=== PATIENT | male | born 1950 | race Caucasian/White ===

== ENCOUNTER → 2016-08-08 | Outpatient (REF) | payer MEDICARE ==
[2016-08-08 12:14] LABS: ALBUMIN 3.5 GM/DL (3.2-5.2); ALBUMIN/GLOBULIN RATIO 0.92 (1.00-1.93); ALKALINE PHOSPHATASE 110 U/L (45-117); ALT/SGPT 48 U/L (12-78); ANION GAP 9 MEQ/L (8-16); AST/SGOT 57 U/L (15-37); BILIRUBIN,TOTAL 0.4 MG/DL (0.2-1.0); BLOOD UREA NITROGEN 9 MG/DL (7-18); CALCIUM LEVEL 8.7 MG/DL (8.8-10.2); CARBON DIOXIDE LEVEL 25 MEQ/L (21-32); CHLORIDE LEVEL 103 MEQ/L (98-107); CHOLESTEROL LEVEL 135 MG/DL (<200); CREATININE FOR GFR 0.82 MG/DL (0.70-1.30); GLOMERULAR FILTRATION RATE > 60.0 (>49); GLUCOSE, FASTING 233 MG/DL (80-110); POTASSIUM SERUM 4.8 MEQ/L (3.5-5.1); SODIUM LEVEL 137 MEQ/L (136-145); TOTAL PROTEIN 7.3 GM/DL (6.4-8.2); TRIGLYCERIDES LEVEL 272 MG/DL (<150); URIC ACID 3.3 MG/DL (3.5-7.2)
== END ==
LOC: M SFHCCLAY 08:53
PROVIDERS: ATTEND Family Medicine
DX: E11.9 Type 2 diabetes mellitus without complications (principal); I10 Essential (primary) hypertension; K75.81 Nonalcoholic steatohepatitis (NASH); N20.0 Calculus of kidney

== ENCOUNTER → 2016-11-15 | Outpatient (REF) | payer MEDICARE ==
[~2016-11-15] MED LIST: ALLO100T; AMLO1TAB22 PO; GLIM1TAB; JANU50TA8; Janumet; METO1TAB32; NAPR500T PO; NORCOTAB PO; VYTO10TA18
== END ==
LOC: M SFHCCLAY 08:44
PROVIDERS: ATTEND Family Medicine
DX: E11.21 Type 2 diabetes mellitus with diabetic nephropathy (principal)

== ENCOUNTER 2016-11-20 22:43 | Emergency (ER) | payer MEDICARE ==
[~2016-11-20] VITALS: Ht 170.2 cm; Wt 115.9 kg
[2016-11-20] MEDS ORDERED: GLIM1TAB (22:57)
[2016-11-20] MEDS ORDERED: JANU50TA8 (22:57)
[2016-11-20] MEDS ORDERED: Janumet (22:57)
[2016-11-20] MEDS ORDERED: ALLO100T (22:57)
[2016-11-20] MEDS ORDERED: VYTO10TA18 (22:57)
[2016-11-20] MEDS ORDERED: AMLO1TAB22 PO (22:57)
[2016-11-20] MEDS ORDERED: METO1TAB32 (22:57)
[2016-11-21] MEDS ORDERED: NORCOTAB PO (01:50)
[2016-11-21] MEDS: NORCO 5/325MG TABLET (BULK FOR ED) PO ONE (01:50)
[2016-11-21] MEDS ORDERED: NAPR500T PO (01:50)
[2016-11-21 01:55] VITALS: BP 160/77
--- NOTE | 2016-11-21 07:44 | REP ---
Clinical: Trauma. Technique: Frontal view of the chest with multiple views of the left hemithorax. Findings: Frontal view of the chest demonstrates no acute cardiopulmonary process. Multiple views of the left hemithorax demonstrates no obvious acute rib fracture or pathology. Impression: Normal left rib series Signed by Jose Alfredo Alston MD 11/21/2016 07:36 A
== END 2016-11-21 01:59 | disposition home or self-care (01) ==
LOC: M ED 22:43
DX: R07.89 Other chest pain (principal); R06.02 Shortness of breath

== ENCOUNTER → 2016-12-18 | Outpatient (REF) | payer MEDICARE ==
[2016-12-18 12:39] LABS: ALBUMIN 2.5 GM/DL (3.2-5.2); ALBUMIN/GLOBULIN RATIO 0.56 (1.00-1.93); ALKALINE PHOSPHATASE 108 U/L (45-117); ALT/SGPT 18 U/L (12-78); ANION GAP 11 MEQ/L (8-16); AST/SGOT 31 U/L (15-37); BILIRUBIN,TOTAL 0.6 MG/DL (0.2-1.0); BLOOD UREA NITROGEN 5 MG/DL (7-18); CALCIUM LEVEL 8.6 MG/DL (8.8-10.2); CARBON DIOXIDE LEVEL 25 MEQ/L (21-32); CHLORIDE LEVEL 106 MEQ/L (98-107); GLOMERULAR FILTRATION RATE > 60.0 (>49); GLUCOSE, FASTING 103 MG/DL (80-110); POTASSIUM SERUM 3.7 MEQ/L (3.5-5.1); SODIUM LEVEL 142 MEQ/L (136-145)
[2016-12-18 13:25] LABS: BASO % 0.3 % (0.0-1.0); EOS # 0.2 K/mm3 (0.0-0.50); LARGE UNSTAINED CELL # 0.1 K/mm3 (0.0-0.4); LARGE UNSTAINED CELL % 0.9 % (0.0-4.0); LYMPH # 1.5 K/mm3 (1.5-4.5); LYMPH % 13.6 % (24.0-44.0); MEAN CORPUSCULAR HEMOGLOBIN 31.4 pg (27.0-33.0); MEAN CORPUSCULAR HGB CONC 32.3 g/dl (32.0-36.5); MEAN CORPUSCULAR VOLUME 97.2 fl (80.0-96.0); MONO # 0.8 K/mm3 (0.0-0.8); MONO % 7.4 % (0.0-5.0); NEUTROPHILS % 75.8 % (36.0-66.0); PLATELET COUNT, AUTOMATED 498 k/mm3 (150-450); RED CELL DISTRIBUTION WIDTH 13.1 % (11.5-14.5); WHITE BLOOD COUNT 10.5 K/mm3 (4.0-10.0)
== END ==
LOC: M SFHCCLAY 08:10
PROVIDERS: ATTEND Family Medicine
DX: I48.91 Unspecified atrial fibrillation (principal); E78.5 Hyperlipidemia, unspecified; I10 Essential (primary) hypertension

== ENCOUNTER → 2017-02-18 | Outpatient (REF) | payer MEDICARE ==
[2017-02-18 12:42] LABS: ALBUMIN 3.7 GM/DL (3.2-5.2); ANION GAP 9 MEQ/L (8-16); BLOOD UREA NITROGEN 12 MG/DL (7-18); CALCIUM LEVEL 9.4 MG/DL (8.8-10.2); CARBON DIOXIDE LEVEL 26 MEQ/L (21-32); CHLORIDE LEVEL 107 MEQ/L (98-107); CREATININE FOR GFR 0.65 MG/DL (0.70-1.30); GLOMERULAR FILTRATION RATE > 60.0 (>49); GLUCOSE, FASTING 87 MG/DL (80-110); PHOSPHORUS LEVEL 4.9 MG/DL (2.5-4.9); SODIUM LEVEL 142 MEQ/L (136-145)
== END ==
LOC: M SFHCCLAY 07:37
PROVIDERS: ATTEND Family Medicine
DX: R93.8 Abnormal findings on diagnostic imaging of other specified body structures (principal); K86.9 Disease of pancreas, unspecified; Z79.899 Other long term (current) drug therapy

== ENCOUNTER → 2017-02-19 | Outpatient (CLI) | payer MEDICARE ==
[~2017-02-19] MED LIST changes: +GASTROGRAFIN SOLUTION 30ML (Q9963) As Ordered ONE; +ISOVUE-370 76% 100ML VIAL (Q9967) As Ordered ONE
--- NOTE | 2017-02-19 16:19 | REP ---
CT of the abdomen, pelvis not included, multiphase scanning without and with IV contrast: There are no comparison studies. Bowel contrast used on all phases of the study. Scanning is initially performed without IV contrast. This is followed by multiphase scanning after IV contrast. The visualized lung mejía are unremarkable. No pleural effusions. The hepatic parenchyma is homogeneous on all phases of the study. There are tiny gallbladder calculi along the dependent wall of the gallbladder. The gallbladder is otherwise unremarkable. There is no mass in the head, body or tail of the pancreas. There is no evidence of pancreatitis or pseudocyst. There is no pancreatic duct dilatation. The spleen is normal size and unremarkable. The adrenals are unremarkable. There are renal cortical cysts bilaterally, the largest is at the mid pole of the left kidney measuring 3.6 cm. The abdominal aorta is unremarkable. There is diverticulosis of the visualized portion of the sigmoid colon without evidence of diverticulitis. The colon is not visualized in entirety. There is a large abdominal pannus hanging inferiorly over the the anterior abdominal wall. Impression: No pancreatic mass is identified. There is diverticulosis without diverticulitis in the visualized portion of the sigmoid colon. There is anterior abdominal wall pannus with dependent edema along the inferior margin of this pannus. There is a dependent edema in this pannus. There is cholelithiasis without cholecystitis. No ascites or adenopathy. Bilateral renal cysts. There is a nonobstructive calculus in the lower pole of the right kidney. Signed by Javier Olivo MD 02/19/2017 04:11 P
== END ==
LOC: M RAD 13:54
PROVIDERS: ATTEND Family Medicine
DX: R93.8 Abnormal findings on diagnostic imaging of other specified body structures (principal)
CPT/HCPCS: 74170; Q9963; Q9967

== ENCOUNTER → 2017-07-10 | Outpatient (REF) | payer MEDICARE | LOC: M SFHCCLAY 12:01 | DX: I10 Essential (primary) hypertension (principal); N20.1 Calculus of ureter; Z53.9 Procedure and treatment not carried out, unspecified reason ==

== ENCOUNTER → 2017-07-15 | Outpatient (CLI) | payer MEDICARE | LOC: M RAD 12:55 | DX: N20.1 Calculus of ureter (principal); N28.1 Cyst of kidney, acquired | CPT/HCPCS: 76775 ==

== ENCOUNTER → 2017-10-22 | Outpatient (REF) | payer MEDICARE ==
[2017-10-22 11:08] LABS: ANION GAP 9 MEQ/L (8-16); BLOOD UREA NITROGEN 8 MG/DL (7-18); CALCIUM LEVEL 8.6 MG/DL (8.8-10.2); CARBON DIOXIDE LEVEL 24 MEQ/L (21-32); CHLORIDE LEVEL 105 MEQ/L (98-107); CREATININE FOR GFR 0.75 MG/DL (0.70-1.30); GLOMERULAR FILTRATION RATE > 60.0 (>49); GLUCOSE, FASTING 200 MG/DL (70-100); POTASSIUM SERUM 4.4 MEQ/L (3.5-5.1); SODIUM LEVEL 138 MEQ/L (136-145)
== END ==
LOC: M LABDRAW1 10:32
DX: M65.312 Trigger thumb, left thumb (principal); Z01.812 Encounter for preprocedural laboratory examination
CPT/HCPCS: 80048

== ENCOUNTER → 2019-01-06 | Outpatient (REF) | payer MEDICARE ==
[~2019-01-06] MED LIST changes: -GASTROGRAFIN SOLUTION 30ML (Q9963) As Ordered ONE; +HYDR-3715 PO; -ISOVUE-370 76% 100ML VIAL (Q9967) As Ordered ONE; +NAPR-837 PO; -NAPR500T PO; -NORCOTAB PO
[2019-01-06 17:13] LABS: BLOOD UREA NITROGEN 10 MG/DL (7-18); CALCIUM LEVEL 9.2 MG/DL (8.8-10.2); CARBON DIOXIDE LEVEL 24 MEQ/L (21-32); CHLORIDE LEVEL 110 MEQ/L (98-107); CREATININE FOR GFR 0.87 MG/DL (0.70-1.30); GLOMERULAR FILTRATION RATE > 60.0 (>49); GLUCOSE, FASTING 110 MG/DL (70-100); POTASSIUM SERUM 4.2 MEQ/L (3.5-5.1); SODIUM LEVEL 141 MEQ/L (136-145)
[2019-01-06 18:53] LABS: HEMOGLOBIN A1c 6.5 %
== END ==
LOC: M SFHCCLAY 11:50
PROVIDERS: ATTEND Family Medicine
DX: E11.9 Type 2 diabetes mellitus without complications (principal); I10 Essential (primary) hypertension

== ENCOUNTER → 2019-09-10 | Outpatient (REF) | payer MEDICARE ==
[~2019-09-10] MED LIST changes: -GLIM1TAB; +GLIM1TAB4
[2019-09-10 12:13] LABS: ALT/SGPT 44 U/L (12-78); BILIRUBIN,TOTAL 0.5 MG/DL (0.2-1.0); BLOOD UREA NITROGEN 15 MG/DL (7-18); CARBON DIOXIDE LEVEL 23 MEQ/L (21-32); CHLORIDE LEVEL 104 MEQ/L (98-107); CHOLESTEROL LEVEL 149 MG/DL (<200); CREATININE FOR GFR 0.94 MG/DL (0.70-1.30); GLOMERULAR FILTRATION RATE > 60.0 (>49); GLUCOSE, FASTING 183 MG/DL (70-100); HDL CHOLESTEROL 26 MG/DL (>40); NON-HDL-C 123 MG/DL; POTASSIUM SERUM 4.5 MEQ/L (3.5-5.1); SODIUM LEVEL 138 MEQ/L (136-145); TOTAL PROTEIN 7.9 GM/DL (6.4-8.2); TRIGLYCERIDES LEVEL 781 MG/DL (<150)
[2019-09-10 12:18] LABS: HEMOGLOBIN A1c 7.7 %
[2019-09-10 12:32] LABS: CREATININE, URINE 47.8 MG/DL; MAU/CREAT RATIO 307.5 MCG/MG (0.0-30.0)
== END ==
LOC: M SFHCCLAY 08:03
PROVIDERS: ATTEND Family Medicine
DX: K75.81 Nonalcoholic steatohepatitis (NASH) (principal); E11.21 Type 2 diabetes mellitus with diabetic nephropathy; Z98.890 Other specified postprocedural states; Z23 Encounter for immunization
CPT/HCPCS: 80053; 80061; 82043; 83036; 84443; 90732; G0009

== ENCOUNTER → 2019-09-14 | Outpatient (REF) | payer MEDICARE ==
[2019-09-14 12:02] LABS: CHOLESTEROL LEVEL 150 MG/DL (<200); CHOLESTEROL RISK RATIO 4.054 (<5); HDL CHOLESTEROL 37 MG/DL (>40); NON-HDL-C 113 MG/DL; TRIGLYCERIDES LEVEL 415 MG/DL (<150)
== END ==
LOC: M SFHCCLAY 08:46
PROVIDERS: ATTEND Family Medicine
DX: E78.2 Mixed hyperlipidemia (principal)

== ENCOUNTER → 2020-02-23 | Outpatient (REF) | payer MEDICARE ==
[2020-02-23 16:23] LABS: BASO % 0.6 % (0.0-1.0); EOS # 0.1 10^3/uL (0.0-0.5); EOS % 1.5 % (0.0-3.0); HEMOGLOBIN 14.3 g/dl (13.5-17.5); LYMPH # 1.3 10^3/uL (1.5-5.0); LYMPH % 19.4 % (24.0-44.0); MEAN CORPUSCULAR HGB CONC 32.5 g/dl (32.0-36.5); MEAN CORPUSCULAR VOLUME 98.4 fl (80.0-96.0); MONO # 0.8 10^3/uL (0.0-0.8); MONO % 12.5 % (0.0-5.0); NEUTROPHILS # 4.4 10^3/uL (1.5-8.5); NEUTROPHILS % 65.6 % (36.0-66.0); PLATELET COUNT, AUTOMATED 219 10^3/uL (150-450); RED BLOOD COUNT 4.47 10^6/uL (4.30-6.10); WHITE BLOOD COUNT 6.7 10^3/uL (4.0-10.0)
[2020-02-23 16:55] LABS: ALBUMIN 3.9 GM/DL (3.2-5.2); BILIRUBIN,DIRECT 0.2 MG/DL (0.0-0.2); BILIRUBIN,TOTAL 0.8 MG/DL (0.2-1.0); TOTAL PROTEIN 7.7 GM/DL (6.4-8.2)
[2020-02-23 17:51] LABS: HEMOGLOBIN A1c 6.6 %
== END ==
LOC: M LABDRAWC 16:02
PROVIDERS: ATTEND Orthopaedic Surgery
DX: Z01.818 Encounter for other preprocedural examination (principal); D64.9 Anemia, unspecified; M17.10 Unilateral primary osteoarthritis, unspecified knee; M25.561 Pain in right knee; I48.20 Chronic atrial fibrillation, unspecified; E11.9 Type 2 diabetes mellitus without complications; Z86.39 Personal history of other endocrine, nutritional and metabolic disease

== ENCOUNTER → 2020-02-23 | Outpatient (REF) | payer MEDICARE ==
[2020-02-23 16:13] LABS: HEMATOCRIT 45.3 % (42.0-52.0); HEMOGLOBIN 14.8 g/dl (13.5-17.5); MEAN CORPUSCULAR HEMOGLOBIN 32.3 pg (27.0-33.0); MEAN CORPUSCULAR HGB CONC 32.7 g/dl (32.0-36.5); MEAN CORPUSCULAR VOLUME 98.9 fl (80.0-96.0); PLATELET COUNT, AUTOMATED 223 10^3/uL (150-450); RED BLOOD COUNT 4.58 10^6/uL (4.30-6.10); WHITE BLOOD COUNT 6.5 10^3/uL (4.0-10.0)
[2020-02-23 16:24] LABS: INR 1.03; PROTHROMBIN TIME 13.7 SECONDS (12.5-14.3)
[2020-02-23 16:25] LABS: PARTIAL THROMBOPLASTIN TIME 33.9 SECONDS (24.2-38.5)
[2020-02-23 16:36] LABS: BLOOD UREA NITROGEN 12 MG/DL (7-18); CALCIUM LEVEL 8.9 MG/DL (8.8-10.2); CARBON DIOXIDE LEVEL 27 MEQ/L (21-32); CHLORIDE LEVEL 107 MEQ/L (98-107); CREATININE FOR GFR 0.78 MG/DL (0.70-1.30); GLOMERULAR FILTRATION RATE > 60.0 (>49); GLUCOSE, FASTING 121 MG/DL (70-100); POTASSIUM SERUM 4.3 MEQ/L (3.5-5.1); SODIUM LEVEL 140 MEQ/L (136-145)
== END ==
LOC: M SFHCCLAY 09:42
PROVIDERS: ATTEND Family Medicine
DX: I48.20 Chronic atrial fibrillation, unspecified (principal); E11.9 Type 2 diabetes mellitus without complications

== ENCOUNTER → 2020-12-06 | Outpatient (REF) | payer MEDICARE ==
[2020-12-06 11:51] LABS: HEMATOCRIT 45.2 % (42.0-52.0); HEMOGLOBIN 14.5 g/dl (13.5-17.5); MEAN CORPUSCULAR HEMOGLOBIN 32.4 pg (27.0-33.0); MEAN CORPUSCULAR HGB CONC 32.1 g/dl (32.0-36.5); MEAN CORPUSCULAR VOLUME 100.9 fl (80.0-96.0); PLATELET COUNT, AUTOMATED 196 10^3/uL (150-450); RED BLOOD COUNT 4.48 10^6/uL (4.30-6.10); WHITE BLOOD COUNT 7.7 10^3/uL (4.0-10.0)
[2020-12-06 12:18] LABS: ALBUMIN 3.8 GM/DL (3.2-5.2); ALT/SGPT 44 U/L (12-78); BILIRUBIN,TOTAL 0.4 MG/DL (0.2-1.0); BLOOD UREA NITROGEN 8 MG/DL (7-18); CALCIUM LEVEL 8.4 MG/DL (8.8-10.2); CARBON DIOXIDE LEVEL 26 MEQ/L (21-32); CHLORIDE LEVEL 107 MEQ/L (98-107); CHOLESTEROL LEVEL 149 MG/DL (<200); CHOLESTEROL RISK RATIO 5.137 (<5); CREATININE FOR GFR 0.72 MG/DL (0.70-1.30); GLOMERULAR FILTRATION RATE > 60.0 (>49); GLUCOSE, FASTING 166 MG/DL (70-100); HDL CHOLESTEROL 29 MG/DL (>40); NON-HDL-C 120 MG/DL; POTASSIUM SERUM 4.1 MEQ/L (3.5-5.1); SODIUM LEVEL 140 MEQ/L (136-145); TOTAL PROTEIN 7.2 GM/DL (6.4-8.2); TRIGLYCERIDES LEVEL 632 MG/DL (<150)
[2020-12-06 12:29] LABS: MAU/CREAT RATIO 589.7 MCG/MG (0.0-30.0)
[2020-12-06 12:48] LABS: HEMOGLOBIN A1c 6.7 %
== END ==
LOC: M SFHCCLAY 07:57
PROVIDERS: ATTEND Family Medicine
DX: G47.33 Obstructive sleep apnea (adult) (pediatric) (principal); E11.21 Type 2 diabetes mellitus with diabetic nephropathy; I48.0 Paroxysmal atrial fibrillation

== ENCOUNTER → 2021-03-16 | Outpatient (CLI) | payer MEDICARE ==
[~2021-03-16] MED LIST changes: +AMLO10CA22; +ELIQ5TAB; +EPIP0.3I2 IJ; +FISH1000 PO; +OCUVTAB PO; +SIMV20TA22; +STEG15TA; +allergy injections
== END ==
LOC: M LABSMTC 10:43
PROVIDERS: ATTEND Anesthesiology
DX: Z01.812 Encounter for preprocedural laboratory examination (principal); Z20.822 Contact with and (suspected) exposure to COVID-19

== ENCOUNTER 2021-03-21 06:49 | Day surgery (SDC) | payer MEDICARE ==
[~2021-03-21] VITALS: Ht 170.2 cm; Wt 112.0 kg
[~2021-03-21 06:49] MED LIST changes: +NS 1,000 ML IV ONE
--- OUTSIDE RECORDS SUMMARY | 2021-03-21 06:53 | CCD | Continuity of Care Document ---
Author Author Sj DOBSON M.D. Organization Unknown Address [address], [address], [place] [address] Phone [phone] Care Team Providers Care Valet Parker Name Role Phone Law Barillas MD AUTM Unavailable Problems Active Problems Provider Date Essential hypertension Hernan Dobson M.D. Onset: 12/19 Toxic effect of venom of wasps, accidental (unintentio nal), initial encounter Hernan Dobson M.D. Onset: 01/08/2020 Toxic effect of venom of hornets, accidental (unintent ional), initial encounter Hernan Dobson M.D. 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 Onset: 01/08/2020 Social History Type Date Description Comments Sex Unknown Tobacco Use Start: 05/20/64 End: 05/20/03 Patient is a forme r smoker 8 Cigarettes Per Day, Stopped for 25 year and restarted Smoking Status Reviewed: 01/09/21 Patient is a former smoker 8 Cigarettes Per Day, Stopped for 25 year and restarted Allergies and adverse reactions Description No Known Drug Allergies Medications Active Medications SIG Qnty Indications Ordering Provide r Date Janumet XR 50-1000mg Tablets ER 24 HR Take 2 Tablets By Mouth With Evening Meal Once A Day Unknown Steglatro 15mg Tablets Take One Tablet By Mouth Every Day Unknown Allopurinol 100mg Tablets Take one talbet once daily Unknown Amlodipine Besylate/Benazepril HCL 10-40mg Capsules Take 1 capsule once daily Unknown Eliquis 5mg Tablets Take 1 tablet twice daily Unknown Simvastatin 20mg Tablets Take 1 tablet every other day (Saturday, Saturday, Saturday) Unkn own Ezetimibe 10mg Tablets Take 1 tablet every other day Unknown Metoprolol Succinate ER 25mg Tablets ER 24HR Take 2 tablets in the morning and 1 tablet in the evening Unknown Glimepiride 2mg Tablets Take 2 tablets in the morning Unknown Epipen 2-Ravi 0.3mg/0 .3ML Solution Auto-Inject inject 0.3 milliliter (0.3 mg) by intram uscular route once as needed for anaphylaxis Unknown Frqkc-5-Xzml Ethyl Esters 1gm Caps ules take 2 capsules once daily Law Barillas MD Medications Administered in Office Medication SIG Qnty Indications Ordering Provider Date Allergy Injection 2 Or More Injection Hernan Dobson M.D. 02/27/2021 Allergy Injection 2 Or More Injection Hernan Dobson M.D. 02/20/2021 Allergy Injection 2 Or More Injection Hernan Dobson M.D. 02/13/2021 Allergy Injection 2 Or More Injection Hernan Dobson M.D. 02/06/2021 Immunizations Description No Information Available Vital Signs Date Vital Result Comment 02/06/2021 10:27am Weight 250.00 lb Height 65.75 inches 5'5.75" Heart Rate 60 /min BP Systolic 130 mmHg BP Diastolic 75 mmHg O2 % BldC Oximetry 96 % BMI (Body Mass Index) 40.7 kg/m2 01/09/2021 8:48am Weight 250.25 lb Height 65.75 inches 5'5.75" Heart Rate 76 /min Respiratory Rate 18 /min BP Systolic 135 mmHg BP Diastolic 76 mmHg BMI (Body Mass Index) 40.7 kg/m2 Results Description No Information Available Procedures Date Code Description Status 02/27/2021 36906 Allergy Antigens Mult Dose Vials , Five Insect Venoms Completed 02/27/2021 76698 Allergy Injection 2 Or More Comp leted 02/20/2021 40762 Allergy Antigens Mult Dose Vials , Five Insect Venoms Completed 02/20/2021 15185 Allergy Antigens Mult Dose Vials , Three Insect Venoms Completed 02/20/2021 75375 Allergy Injection 2 Or More Comp leted 02/13/2021 82512 Allergy Antigens Mult Dose Vials , Five Insect Venoms Completed 02/13/2021 29505 Allergy Injection 2 Or More Comp leted 02/06/2021 23271 Allergy Antigens Mult Dose Vials , Five Insect Venoms Completed 02/06/2021 17219 Allergy Injection 2 Or More Comp leted 01/09/2021 28150 Office/Outpatient Established Lo w MDM 20-29 Min Completed Medical Devices Description No Information Available Encounters Type Date Location Provider Dx Diagnosis Office Visit 01/09/2021 8:45a Main Office Hernan Dobson M.D. T63.441D Toxic effect of venom of bees, accidental, subs T63.451D Toxic effect of venom of hor nets, accidental, subs T63.461D Toxic effect of venom of was ps, accidental, subs Assessments Date Code Description Provider 02/27/2021 T63.441D Toxic effect of venom of bees, a ccidental, subs Hernan Dobson M.D. 02/27/2021 T63.451D Toxic effect of venom of hornets , accidental, subs Hernan Dobson M.D. 02/27/2021 T63.461D Toxic effect of venom of wasps, accidental, subs Hernan Dobson M.D. 02/27/2021 T63.441D Toxic effect of venom of bees, a mieshadental, subs Hernan Dobson M.D. 02/27/2021 T63.451D Toxic effect of venom of hornets , accidental, subs Hernan Dobson M.D. 02/27/2021 T63.461D Toxic effect of venom of wasps, accidental, subs Hernan Dobson M.D. Plan of Treatment Future Appointment(s):* 03/06/2021 9:20 am - Allergy Injection at Main Office * 01/09/2022 9:15 am - Hernan Dobson M.D. at Main Office Functional Status Description No Information Available Mental Status Description No Information Available Referrals Description No Information Available
--- OUTSIDE RECORDS SUMMARY | 2021-03-21 06:53 | CCD | Continuity of Care Document ---
Author Author Sj DOBSON M.D. Organization Unknown Address [address], [address], [place] [address] Phone [phone] Care Team Providers Care Special Delivery Mail Carrier Name Role Phone Law Barillas MD AUTM [...] route once as needed for anaphylaxis Unknown Vqgie-0-Olqk Ethyl Esters 1gm Caps ules take 2 capsules once daily Law Barillas MD Medications Administered in Office Medication SIG Qnty Indications Ordering Provider Date Allergy Injection 2 Or More Injection Hernan Dobson M.D. 03/14/2021 Allergy Injection 2 Or More Injection Hernan Dobson M.D. 03/06/2021 Allergy Injection 2 Or More Injection Hernan [...] Information Available Procedures Date Code Description Status 03/14/2021 27276 Allergy Antigens Mult Dose Vials , Five Insect Venoms Completed 03/14/2021 09540 Allergy Injection 2 Or More Comp leted 03/06/2021 66200 Allergy Antigens Mult Dose Vials , Five Insect Venoms Completed 03/06/2021 86056 Allergy Injection 2 Or More Comp leted 02/27/2021 71776 Allergy Antigens Mult Dose Vials , Five Insect Venoms Completed 02/27/2021 92114 Allergy Injection 2 Or More Comp leted 02/20/2021 11313 Allergy Antigens Mult Dose Vials , Five Insect Venoms Completed 02/20/2021 30672 Allergy Antigens Mult Dose Vials , Three Insect Venoms Completed 02/20/2021 28082 Allergy Injection 2 Or More Comp leted 02/13/2021 32288 Allergy Antigens Mult Dose Vials , Five Insect Venoms Completed 02/13/2021 32748 Allergy Injection 2 Or More Comp leted 02/06/2021 93338 Allergy Antigens Mult Dose Vials , Five Insect Venoms Completed 02/06/2021 77070 Allergy Injection 2 Or More Comp leted 01/09/2021 56483 Office/Outpatient Established Lo w MDM 20-29 Min [...] accidental, subs Assessments Date Code Description Provider 03/14/2021 T63.441D Toxic effect of venom of bees, a ccidental, subs Hernan Dobson M.D. 03/14/2021 T63.451D Toxic effect of venom of hornets , accidental, subs Hernan Dobson M.D. 03/14/2021 T63.461D Toxic effect of venom of wasps, accidental, subs Hernan Dobson M.D. 03/14/2021 T63.441D Toxic effect of venom of bees, a ccidental, subs Hernan Dobson M.D. 03/14/2021 T63.451D Toxic effect of venom of hornets , accidental, subs Hernan Dobson M.D. 03/14/2021 T63.461D Toxic effect of venom of wasps, accidental, subs Hernan Dobson M.D. Plan of Treatment Future Appointment(s):* 03/20/2021 9:40 am - Allergy Injection at Main Office * 01/09/2022 9:15 am - Hernan Dobson M.D. at Main Office Functional Status Description No Information Available Mental Status Description No Information Available Referrals Description No Information Available
--- OUTSIDE RECORDS SUMMARY | 2021-03-21 06:53 | CCD | Continuity of Care Document ---
Author Author Sj DOBSON M.D. Organization Unknown Address [address], [address], [place] [address] Phone [phone] Care Team Providers Care Sterile Tech Name Role Phone Law Barillas MD AUTM Unavailable Problems Active Problems Provider Date Essential hypertension Hernan Dobson M.D. Onset: 12/19 Toxic effect of venom of wasps, accidental (unintentio nal), initial encounter Hernan Dosbon M.D. Onset: 01/08/2020 Toxic effect of venom [...] route once as needed for anaphylaxis Unknown Othbr-0-Fhkz Ethyl Esters 1gm Caps ules take 2 capsules once daily Law Barillas MD Medications Administered in Office Medication SIG Qnty Indications Ordering Provider Date Allergy Injection 2 Or More Injection Hernan Dobson M.D. 03/20/2021 Allergy Injection 2 Or More Injection Hernan [...] Information Available Procedures Date Code Description Status 03/20/2021 66576 Allergy Antigens Mult Dose Vials , Five Insect Venoms Completed 03/20/2021 72931 Allergy Injection 2 Or More Comp leted 03/14/2021 08028 Allergy Antigens Mult Dose Vials , Five Insect Venoms Completed 03/14/2021 42547 Allergy Injection 2 Or More Comp leted 03/06/2021 61468 Allergy Antigens Mult Dose Vials , Five Insect Venoms Completed 03/06/2021 13447 Allergy Injection 2 Or More Comp leted 02/27/2021 04148 Allergy Antigens Mult Dose Vials , Five Insect Venoms Completed 02/27/2021 50937 Allergy Injection 2 Or More Comp leted 02/20/2021 36848 Allergy Antigens Mult Dose Vials , Five Insect Venoms Completed 02/20/2021 25299 Allergy Antigens Mult Dose Vials , Three Insect Venoms Completed 02/20/2021 07054 Allergy Injection 2 Or More Comp leted 02/13/2021 24967 Allergy Antigens Mult Dose Vials , Five Insect Venoms Completed 02/13/2021 23074 Allergy Injection 2 Or More Comp leted 02/06/2021 36735 Allergy Antigens Mult Dose Vials , Five Insect Venoms Completed 02/06/2021 11432 Allergy Injection 2 Or More Comp leted 01/09/2021 99951 Office/Outpatient Established Lo w MDM 20-29 Min [...] accidental, subs Assessments Date Code Description Provider 03/20/2021 T63.441D Toxic effect of venom of bees, a ccidental, subs Hernan Dobson M.D. 03/20/2021 T63.451D Toxic effect of venom of hornets , accidental, subs Hernan Dobson M.D. 03/20/2021 T63.461D Toxic effect of venom of wasps, accidental, subs Hernan Dobson M.D. 03/20/2021 T63.441D Toxic effect of venom of bees, a ccidental, subs Hernan Dobson M.D. 03/20/2021 T63.451D Toxic effect of venom of hornets , accidental, subs Hernan Dobson M.D. 03/20/2021 T63.461D Toxic effect of venom of wasps, accidental, subs Hernan Dobson M.D. Plan of Treatment Future Appointment(s):* 03/27/2021 9:30 am - Allergy Injection at Main Office * 01/09/2022 9:15 am - Hernan Dobson M.D. at Main Office Functional Status Description No Information Available Mental Status Description No Information Available Referrals Description No Information Available
--- OUTSIDE RECORDS SUMMARY | 2021-03-21 06:53 | CCD | Continuity of Care Document ---
Author Author Sj DOBSON M.D. Organization Unknown Address [address], [address], [place] [address] Phone [phone] Care Team Providers Care Balance Wheel Facer Name Role Phone Law Barillas MD AUTM [...] route once as needed for anaphylaxis Unknown Ymvai-1-Ysny Ethyl Esters 1gm Caps ules take 2 [...] Available Procedures Date Code Description Status 02/27/2021 65342 Allergy Antigens Mult Dose Vials , Five Insect Venoms Completed 02/27/2021 19987 Allergy Injection 2 Or More Comp leted 02/20/2021 91416 Allergy Antigens Mult Dose Vials , Five Insect Venoms Completed 02/20/2021 27847 Allergy Antigens Mult Dose Vials , Three Insect Venoms Completed 02/20/2021 75356 Allergy Injection 2 Or More Comp leted 02/13/2021 68430 Allergy Antigens Mult Dose Vials , Five Insect Venoms Completed 02/13/2021 19504 Allergy Injection 2 Or More Comp leted 02/06/2021 99576 Allergy Antigens Mult Dose Vials , Five Insect Venoms Completed 02/06/2021 18678 Allergy Injection 2 Or More Comp leted 01/09/2021 70278 Office/Outpatient Established Lo w MDM 20-29 Min [...]
--- OUTSIDE RECORDS SUMMARY | 2021-03-21 06:53 | CCD | Continuity of Care Document ---
Author Author Sj ALONSO M.D. Organization Unknown Address [address], [address] [place] [address] Phone [phone] Care Team Providers Care Modular Set Crew Member Name Role Phone Law Barillas M.D. AUTM [phone] AUTM Unavailable Problems Active Problems Provider Date Obstructive sleep apnea syndrome Lay Mello A.NYovani Onset: 10/22/2016 Essential hypertension Chapin Krishnamurthy MD Onset: 04/08/2019 Social History Type Date Description Comments Sex Unknown ETOH Use Denies alcohol use Tobacco Use Start: 05/20/76 End: 05/20/03 Patient is a forme r smoker he smoked 1/2 ppd and he quit for 25 years and then started smoking again. Smoking Status Reviewed: 02/02/21 Patient is a former smoker he smoked 1/2 ppd and he quit for 25 years and then started smoking again. Allergies, Adverse Reactions, Alerts Description No Known Drug Allergies Medications Active Medications SIG Qnty Indications Ordering Provide r Date Clenpiq 10-3.5-12mg-GM -GM/160ML S olution follow pre-procedure instructions. start day before procedure. (if not covered by insurance please fill gavilyte script). 320ml C18.7 Ralph Alonso M.D. 02/09/2021 Gavilyte-N With Flavor Pack 420gm Solution Rec drink the liquid as per the pre-procedur e instructions. ( fill this script only if clenpiq is not covered by insurance). 4000ml C18Lanette Alonso M.D. 02/09/[address] take 4 tablets together as per bowel preparation instructions. 4tabs C18.Santosh FlowersD. 02/09/2021 Amlodipine Besylate/Benazepril HCL 10-40mg Capsules 1tab qhs Unknown Allopurinol 100mg Tablets 1ta b qhs Unknown Metoprolol Succinate ER 25mg Tablets ER 24HR 2tabs qam/1tab qhs Unknown 0 Janumet XR 50-1000mg Tablets ER 24 HR 2tabs qhs Unknown CPAP 13CM [facility] Unknown Eliquis 5mg Tablets 1tab bid Unknown Steglatro 15mg Tablets 1tab q am Unknown Glimepiride 4mg Tablets 2tabs qam Unknown Ezetimibe 10mg Tablets 1tab 3 x/wk Unknown Simvastatin 20mg Tablets 1tab 3x/wk Unknown Ocuvite qd Unknown Jqcfp-0-Cchl Ethyl Esters 1gm Caps ules 2caps bid Unknown [place] 3 every day Unknown Immunizations Description No Information Available Vital Signs Date Vital Result Comment 02/09/2021 9:50am BP Systolic 128 mmHg BP Diastolic 76 mmHg Height 67 inches 5'7" Weight 245.00 lb BMI (Body Mass Index) 38.4 kg/m2 [place] Body Weight 148 lb Weight 111.132 kg BSA (Body Surface Area) 2.20 m2 02/02/2021 8:29am BP Systolic 130 mmHg BP Diastolic 70 mmHg Heart Rate 60 /min O2 % BldC Oximetry 96 % Height 67 inches 5'7" Weight 248.00 lb BMI (Body Mass Index) 38.8 kg/m2 [place] Body Weight 148 lb Weight 112.493 kg BSA (Body Surface Area) 2.22 m2 Results Description No Information Available Procedures Date Code Description Status 02/02/2021 17166 Office/Outpatient Established Lo w MDM 20-29 Min Completed Medical Devices Description No Information Available Encounters Type Date Location Provider Dx Diagnosis Office Visit 02/02/2021 8:30a [facility] Sheldon Vasquez MD G47.33 Obstructive sleep apnea (adult) (pediatr ic) Z79.02 [facility] [employer] (current) use of a ntithrombotics/antiplatelets Assessments Date Code Description Provider 02/09/2021 C18.7 Carcinoma of sigmoid colon Bronwyn Alonso M.D. 02/09/2021 Z12.11 Screening for malignant neoplasm of colon Ralph Alonso M.D. 02/09/2021 K63.5 Polyp of colon Ralph Song ala, M.D. 02/02/2021 G47.33 Obstructive sleep apnea (adult) (pediatric) Manohar Vasquez MD 02/02/2021 Z79.02 [facility] (current) use of antit hrombotics/antiplatelets Manohar Vasquez MD Plan of Treatment Future Appointment(s):* 02/12/2022 9:00 am - Manohar Vasquez MD at [facility] 02/02/2021 - Manohar Vasquez MD* G47.33 Obstructive sleep apnea (adult) (pediatric) * Z79.02 [employer] (current) use of antithrombotics/antiplatelets * * Comments:* ~ At this point, he is to continue his current regimen. No changes were made. He was applauded for his compliance. We updated his mask, filter and supply order. He keeps his device clean. Immunizations managed through primary.~ I have offered him a follow-up visit here, at least, yearly or, certainly, sooner if problems arise with which we can be of assistance. * Follow up:* 12 months....no testing Functional Status Description No Information Available Mental Status Description No Information Available Referrals Refer to Dr Reason for Referral Status Appt Date Ralph Alonso M.D. COLO SCREENING - HX OF [place] Scheduled 02/09/2021 [facility] [address], [address] [address] [phone]
--- OUTSIDE RECORDS SUMMARY | 2021-03-21 06:53 | CCD ---
Continuity of Care Document (CCD) Created on: 03/20/2021 Sj Soler External Reference #: [id number] : [id number] Sex: Male Author Author Sj DOBSON M.D. Organization Unknown Address [address] [place] [address] Phone [phone] Care Team Providers Care Manager Endoscopy Name Role Phone Law Barillas MD AUTM [...] route once as needed for anaphylaxis Unknown Gaucr-1-Klkp Ethyl Esters 1gm Caps ules take 2 [...] Available Procedures Date Code Description Status 03/20/2021 95757 Allergy Antigens Mult Dose Vials , Five Insect Venoms Completed 03/20/2021 14707 Allergy Injection 2 Or More Comp leted 03/14/2021 83419 Allergy Antigens Mult Dose Vials , Five Insect Venoms Completed 03/14/2021 12291 Allergy Injection 2 Or More Comp leted 03/06/2021 81603 Allergy Antigens Mult Dose Vials , Five Insect Venoms Completed 03/06/2021 04594 Allergy Injection 2 Or More Comp leted 02/27/2021 53901 Allergy Antigens Mult Dose Vials , Five Insect Venoms Completed 02/27/2021 95311 Allergy Injection 2 Or More Comp leted 02/20/2021 57761 Allergy Antigens Mult Dose Vials , Five Insect Venoms Completed 02/20/2021 85833 Allergy Antigens Mult Dose Vials , Three Insect Venoms Completed 02/20/2021 73031 Allergy Injection 2 Or More Comp leted 02/13/2021 39668 Allergy Antigens Mult Dose Vials , Five Insect Venoms Completed 02/13/2021 27954 Allergy Injection 2 Or More Comp leted 02/06/2021 22544 Allergy Antigens Mult Dose Vials , Five Insect Venoms Completed 02/06/2021 33280 Allergy Injection 2 Or More Comp leted 01/09/2021 16612 Office/Outpatient Established Lo w MDM 20-29 Min [...]
--- OUTSIDE RECORDS SUMMARY | 2021-03-21 06:53 | CCD | Continuity of Care Document ---
Author Author Sj DOBSON M.D. Organization Unknown Address [address], [address], [place] [address] Phone [phone] Care Team Providers Care Lens Inserter Name Role Phone Law Barillas MD AUTM [...] route once as needed for anaphylaxis Unknown Rkwfl-1-Wszn Ethyl Esters 1gm Caps ules take 2 [...] Information Available Procedures Date Code Description Status 03/06/2021 86695 Allergy Antigens Mult Dose Vials , Five Insect Venoms Completed 03/06/2021 23194 Allergy Injection 2 Or More Comp leted 02/27/2021 90402 Allergy Antigens Mult Dose Vials , Five Insect Venoms Completed 02/27/2021 46441 Allergy Injection 2 Or More Comp leted 02/20/2021 64795 Allergy Antigens Mult Dose Vials , Five Insect Venoms Completed 02/20/2021 61593 Allergy Antigens Mult Dose Vials , Three Insect Venoms Completed 02/20/2021 23219 Allergy Injection 2 Or More Comp leted 02/13/2021 66500 Allergy Antigens Mult Dose Vials , Five Insect Venoms Completed 02/13/2021 30327 Allergy Injection 2 Or More Comp leted 02/06/2021 00021 Allergy Antigens Mult Dose Vials , Five Insect Venoms Completed 02/06/2021 68491 Allergy Injection 2 Or More Comp leted 01/09/2021 39338 Office/Outpatient Established Lo w MDM 20-29 Min [...] accidental, subs Assessments Date Code Description Provider 03/06/2021 T63.441D Toxic effect of venom of bees, a mieshadental, subs Hernan Dobson M.D. 03/06/2021 T63.451D Toxic effect of venom of hornets , accidental, subs Hernan Dobson M.D. 03/06/2021 T63.461D Toxic effect of venom of wasps, accidental, subs Hernan Dobson M.D. 03/06/2021 T63.441D Toxic effect of venom of bees, a mieshadental, geri Dobson M.D. 03/06/2021 T63.451D Toxic effect of venom of hornets , accidental, geri Dobson M.D. 03/06/2021 T63.461D Toxic effect of venom of wasps, accidental, subs Hernan Dobson M.D. Plan of Treatment Future Appointment(s):* 01/09/2022 9:15 am - Hernan Dobson M.D. at Main Office Functional Status Description No Information Available Mental Status Description No Information Available Referrals Description No Information Available
--- OUTSIDE RECORDS SUMMARY | 2021-03-21 06:53 | CCD | Continuity of Care Document ---
Author Author Sj DOBSON M.D. Organization Unknown Address [address], [address], [place] [address] Phone [phone] Care Team Providers Care Pipe Fitter Marine Name Role Phone Law Barillas MD AUTM [...] route once as needed for anaphylaxis Unknown Eevhh-2-Allb Ethyl Esters 1gm Caps ules take 2 [...] Available Procedures Date Code Description Status 03/06/2021 78555 Allergy Antigens Mult Dose Vials , Five Insect Venoms Completed 03/06/2021 62830 Allergy Injection 2 Or More Comp leted 02/27/2021 43990 Allergy Antigens Mult Dose Vials , Five Insect Venoms Completed 02/27/2021 23938 Allergy Injection 2 Or More Comp leted 02/20/2021 92293 Allergy Antigens Mult Dose Vials , Five Insect Venoms Completed 02/20/2021 59689 Allergy Antigens Mult Dose Vials , Three Insect Venoms Completed 02/20/2021 39672 Allergy Injection 2 Or More Comp leted 02/13/2021 13180 Allergy Antigens Mult Dose Vials , Five Insect Venoms Completed 02/13/2021 41447 Allergy Injection 2 Or More Comp leted 02/06/2021 26300 Allergy Antigens Mult Dose Vials , Five Insect Venoms Completed 02/06/2021 66925 Allergy Injection 2 Or More Comp leted 01/09/2021 03418 Office/Outpatient Established Lo w MDM 20-29 Min [...]
--- OUTSIDE RECORDS SUMMARY | 2021-03-21 06:53 | CCD | Continuity of Care Document ---
Author Author Sj VASQUEZ MD Organization Unknown Address [address] [place] [address] Phone [phone] Care Team Providers Care Ordnance Officer Name Role Phone Law Barillas M.D. AUTM [phone] AUTM Unavailable Problems Active Problems Provider Date [...] SIG Qnty Indications Ordering Provide r Date Amlodipine Besylate/Benazepril HCL 10-40mg Capsules 1tab qhs [...] Tablets 1tab 3x/wk Unknown Ocuvite qd Unknown Aorhd-6-Llrm Ethyl Esters 1gm Caps ules 2caps bid Unknown [place] 3 every day Unknown Immunizations Description No Information Available Vital Signs Date Vital Result Comment 02/02/2021 8:29am BP Systolic 130 mmHg BP Diastolic 70 mmHg Heart Rate 60 /min O2 % BldC Oximetry 96 % Height 67 inches 5'7" Weight 248.00 lb BMI (Body Mass Index) 38.8 kg/m2 [place] Body Weight 148 lb Weight 112.493 kg BSA (Body Surface Area) 2.22 m2 02/01/2020 8:21am BP Systolic 124 mmHg BP Diastolic 80 mmHg Heart Rate 69 /min O2 % BldC Oximetry 99 % Room Air Height 67 inches 5'7" Weight 245.00 lb BMI (Body Mass Index) 38.4 kg/m2 [place] Body Weight 148 lb Weight 111.132 kg BSA (Body Surface Area) 2.20 m2 Results Description No Information Available Procedures Date Code Description Status 02/02/2021 85635 Office/Outpatient Established Lo w MDM 20-29 Min Completed Medical Devices Description No Information Available Encounters Type Date Location Provider Dx Diagnosis Office Visit 02/02/2021 8:30a [facility]Th[facility]acic Sheldon Vasquez MD G47.33 Obstructive sleep apnea (adult) (pediatr ic) Z79.02 long term care social worker (current) use of a ntithrombotics/antiplatelets Assessments Date Code Description Provider 02/02/2021 G47.33 Obstructive sleep apnea (adult) (pediatric) Manohar Vasquez MD 02/02/2021 Z79.02 long term care social worker (current) use of antit hrombotics/antiplatelets Manohar Vasquez MD Plan of Treatment Future Appointment(s):* 02/12/2022 9:00 am - Manohar Vasquez MD at [facility] Pulmonary[facility]Thoracic * 02/09/2021 9:20 am - Ralph Tenorio M.D. at [facility] 02/02/2021 - Manohar Vasquez MD* G47.33 Obstructive sleep apnea (adult) (pediatric) * Z79.02 senior living (current) use of antithrombotics/antiplatelets * * Comments:* [...] Description No Information Available Referrals Refer to Reason for Referral Status Appt Date Ralph Tenorio M.D. COLO SCREENING - HX OF [place] Scheduled 02/09/2021 [facility]- [address] [facility], [address] [place] [address] [phone]
--- OUTSIDE RECORDS SUMMARY | 2021-03-21 06:53 | CCD | Continuity of Care Document ---
Author Author Sj DOBSON M.D. Organization Unknown Address [address], [address], [place] [address] Phone [phone] Care Team Providers Care Info Analyst Name Role Phone Law Barillas MD AUTM [...] route once as needed for anaphylaxis Unknown Briul-4-Miaj Ethyl Esters 1gm Caps ules take 2 [...] Information Available Procedures Date Code Description Status 02/20/2021 71156 Allergy Antigens Mult Dose Vials , Three Insect Venoms Completed 02/20/2021 91097 Allergy Injection 2 Or More Comp leted 02/13/2021 71164 Allergy Antigens Mult Dose Vials , Five Insect Venoms Completed 02/13/2021 50975 Allergy Injection 2 Or More Comp leted 02/06/2021 02119 Allergy Antigens Mult Dose Vials , Five Insect Venoms Completed 02/06/2021 90654 Allergy Injection 2 Or More Comp leted 01/09/2021 57285 Office/Outpatient Established Lo w MDM 20-29 Min [...] accidental, subs Assessments Date Code Description Provider 02/20/2021 T63.441D Toxic effect of venom of bees, a ccidental, subs Hernan Dobson M.D. 02/20/2021 T63.451D Toxic effect of venom of hornets , accidental, subs Hernan Dobson M.D. 02/20/2021 T63.461D Toxic effect of venom of wasps, accidental, subs Hernan Dobson M.D. 02/20/2021 T63.441D Toxic effect of venom of bees, a ccidental, subs Hernan Dobson M.D. 02/20/2021 T63.451D Toxic effect of venom of hornets , accidental, subs Hernan Dobson M.D. 02/20/2021 T63.461D Toxic effect of venom of wasps, accidental, subs Hernan Dobson M.D. Plan of Treatment Future Appointment(s):* 01/09/2022 9:15 am - Hernan Dobson M.D. at Main Office Functional Status Description No Information Available Mental Status Description No Information Available Referrals Description No Information Available
--- OUTSIDE RECORDS SUMMARY | 2021-03-21 06:53 | CCD | Continuity of Care Document ---
Author Author Sj DOBSON M.D. Organization Unknown Address [address], [address], [place] [address] Phone [phone] Care Team Providers Care General Ledger Accountant Name Role Phone Law Barillas MD AUTM [...] route once as needed for anaphylaxis Unknown Gwdvu-7-Uzjg Ethyl Esters 1gm Caps ules take 2 [...] Available Procedures Date Code Description Status 03/14/2021 27399 Allergy Antigens Mult Dose Vials , Five Insect Venoms Completed 03/14/2021 30582 Allergy Injection 2 Or More Comp leted 03/06/2021 56705 Allergy Antigens Mult Dose Vials , Five Insect Venoms Completed 03/06/2021 51000 Allergy Injection 2 Or More Comp leted 02/27/2021 63084 Allergy Antigens Mult Dose Vials , Five Insect Venoms Completed 02/27/2021 81225 Allergy Injection 2 Or More Comp leted 02/20/2021 75883 Allergy Antigens Mult Dose Vials , Five Insect Venoms Completed 02/20/2021 10508 Allergy Antigens Mult Dose Vials , Three Insect Venoms Completed 02/20/2021 97447 Allergy Injection 2 Or More Comp leted 02/13/2021 11403 Allergy Antigens Mult Dose Vials , Five Insect Venoms Completed 02/13/2021 19437 Allergy Injection 2 Or More Comp leted 02/06/2021 81090 Allergy Antigens Mult Dose Vials , Five Insect Venoms Completed 02/06/2021 03869 Allergy Injection 2 Or More Comp leted 01/09/2021 85072 Office/Outpatient Established Lo w MDM 20-29 Min [...]
--- OUTSIDE RECORDS SUMMARY | 2021-03-21 06:53 | CCD | Continuity of Care Document ---
Author Author Sj DOBSON M.D. Organization Unknown Address [address], [address], [place] [address] Phone [phone] Care Team Providers Care Power Hammer Operator Name Role Phone Law Barillas MD AUTM Unavailable Problems Active Problems Provider Date Essential hypertension Hernan Dobsno M.D. Onset: 12/19 Toxic effect of venom [...] Day, Stopped for 25 year and restarted Allergies, Adverse Reactions, Alerts Description No Known [...] route once as needed for anaphylaxis Unknown Xpprb-0-Lujm Ethyl Esters 1gm Caps ules take 2 [...] Information Available Procedures Date Code Description Status 02/13/2021 46120 Allergy Injection 2 Or More Comp leted 02/06/2021 28838 Allergy Antigens Mult Dose Vials , Five Insect Venoms Completed 02/06/2021 30024 Allergy Injection 2 Or More Comp leted 01/09/2021 26451 Office/Outpatient Established Lo w [facility] 20-29 Min Completed Medical Devices Description No Information Available Encounters Type Date Location Provider Dx Diagnosis Office Visit 01/09/2021 8:45a Main Office Hernan Dobson M.D. T63.441D Toxic effect of venom of bees, accidental, subs T63.451D Toxic effect of venom of hor nets, accidental, subs T63.461D Toxic effect of venom of was ps, accidental, subs Assessments Description No Information Available Plan of Treatment Future Appointment(s):* 01/09/2022 9:15 am - Hernan Dobson M.D. at Main Office Functional Status Description No Information Available Mental Status Description No Information Available Referrals Description No Information Available
--- OUTSIDE RECORDS SUMMARY | 2021-03-21 06:53 | CCD ---
Author Author [facility] Organization [facility] Address Unknown Phone Unavailable Care Team Providers Care Limnologist Name Role Phone Law Barillas Unavailable PROBLEMS Type Condition ICD9-CM Code CGP10-WU Code Onset Dates Condition S tatus W/U Status Risk SNOMED Code Notes Problem Hypertension I10 Active confirmed 2250715 3 Problem Personal history of other diseases of the circulatory syst em Z86.79 Active confirmed 052328675 Problem Diabetes mellitus E11.9 Active confirmed 73 877809 Problem Other specific arthropathies, not elsewhere clas sified, left shoulder M12.812 Active confirmed 165954174 Problem Uric acid kidney stone N20.0 Active confirmed 37282479 Problem Rotator cuff tear arthropathy of both shoulders M1 2.811 Active confirmed 697774711 Problem ROMEL (obstructive sleep apnea) G47.33 Active confirm ed 37667532 Problem 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 Activ e confirmed 54459425 Problem H/O cardiac radiofrequency ablation Z98.890 Acti ve confirmed 725247070 Problem Ureterolithiasis N20.1 Active confirmed 310 27127 Problem Paroxysmal a-fib I48.0 Active confirmed 282 814612 Problem 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 Active confirmed 067934473 Problem Mixed hyperlipidemia E78.2 Active confirmed 053536024 Problem Immunization not carried out because of patient refusal Z28.21 Active confirmed 290572449888 Problem Encounter for immunization Z23 Active confirmed 810776441 Problem Steatohepatitis K75.81 Active confirmed 4421 59225 Problem Paroxysmal atrial fibrillation I48.0 Active confir med 010941584 Problem Medicare annual wellness visit, subsequent Z00.00 Active confirmed 896303014 Problem Primary osteoarthritis of right knee M17.11 Act alison confirmed 613142068993858 Problem Cardiac pacemaker in situ Z95.0 Active confirmed 440655690 ALLERGIES Allergen (clinical drug ingredient) Drug/Non Drug Allergy do cumented on EMR Reaction Allergy Type Onset Date Status Bee Sting Anaphylaxis Drug Allergy 10/25/2020 Active ENCOUNTERS from 1950 to 2021-03-03 Encounter Location Date Provider Diagnosis [facility] Brennan CHAUDHARY [phone] [place] [address] 07 Feb, 2021 Law Barillas Hypertension I10 ; Diabetes mellitus wit h nephropathy E11.21 ; Mixed hyperlipidemia E78.2 ; Anaphylaxis, initial encounter T78.2XXA ; 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 ; Immunization not carried out because of patient refusal Z28.21 and H/O cardiac radiofrequency ablation Z98.890 IMMUNIZATIONS Vaccine Route Administration Date Status Influenza Pharmacy Given Unknown Mar 03, 2020 Adminis tered Zoster 50mcg/0.5mL Shingrix IM Intramuscular October 27, 2019 Adm inistered Influenza (High Dose 65 & up) Unknown Mar 20, 2018 Ad ministered Zoster 0.65mL Zostavax Unknown November 26, 2013 Administe red Pneumococcal Adult 0.5mL Pneumovax 23 IM Intramuscular September 10, 2019 Administered Pneumococcal Adult 0.5mL Pneumovax 23 Unknown Feb 18 13 Administered Influenza Pharmacy Given Unknown Feb 10, 2021 Adminis tered TDAP 0.5mL (Boostrix) Unknown Mar 15, 2014 Administer ed COVID-19 dose #1 given elsewhere Unspecified IM Intramuscular Ja n 2020 Administered Pneumococcal 0.5mL Prevnar 13 IM Intramuscular November 15, 2016 A dministered COVID-19 dose #2 given elsewhere Unspecified IM Intramuscular Fe b 2020 Administered Influenza 6mo & up Fluzone Unknown Mar 19, 2016 Admin istered SOCIAL HISTORY Tobacco Use: Social History Observation Description Date Details (start date - stop date) Former Smoker Sex Assigned At : Social History Observation Description Sex Assigned At Unknown Audit Question Answer Notes Total Score: 0 Interpretation: Alcohol Education Language: Question Answer Notes Languages spoken: Welsh Caodaism: Question Answer Notes Caodaism 33 None Domestic Violence: Question Answer Notes Status: Sexual Hx: Question Answer Notes Had sex in the last 12 months (vaginal, oral, or anal)? No Have you ever had an STD? No Drug and Alcohol Question Answer Notes Total Score: 0 Interpretation: No problems reported Alcohol Screening: Question Answer Notes Did you have a drink containing alcohol in the past year? No Points 0 Interpretation Negative BMI Care Goal Follow-Up Question Answer Notes Above Normal BMI Follow-Up Dietary management educatio n, guidance, and counseling Tobacco Use: Question Answer Notes Are you a: former smoker quit 2003 Additional Findings: Tobacco User no oth er use Additional Findings: Tobacco Non-User Current non-smok er, but past smoking history unknown How long has it been since you last smoked? > 10 years updated 02/23/2021 REASON FOR REFERRAL No Information VITAL SIGNS Weight 239 lbs Feb, Height 5'4 1/2" in Feb, BMI 40.39 kg/m2 Feb, Heart Rate 72 /min Feb, Respiratory Rate 18 /min Feb, Temperature 97.6 degrees Fahrenheit Feb, Oximetry 97RA Feb, Blood pressure systolic 120 mm Hg Feb, Blood pressure diastolic 73 mm Hg Feb, MEDICATIONS Medication SIG (Take, Route, Frequency, Duration) Notes Start Da te End Date Status Zyloprim 100 MG 1 tablet Orally Once a day May, Active Colace 100 MG 1 capsule as needed Orally Once a day Mar Active Zwpjb-7-rubq Ethyl Esters 1 GM 2 capsules Orally Twice a day Nov, Active Simvastatin 20 MG 1 tablet in the evening Orally 3 x weekly Active Ezetimibe 10 MG 1 tablet Orally 3 x weekly Active Allopurinol 100 MG 1 tablet Orally Once a day May, Active EpiPen 2-Ravi 0.3 MG/0.3ML as directed Injection Oct, Active amLODIPine Besy-Benazepril HCl 10-40 MG TAKE 1 CAPSULE BY MOUTH ONCE A DAY Orally ONCE A DAY Active Codefieduch UltraSoft Lancets - as directed E11.9 Daily 2016 Active Eliquis 5 MG TAKE ONE TABLET BY MOUTH TWICE A DAY Orally bid Active Ocuvite - 1 tab Orally once daily A ctive AstridTouch Ultra Test - CHECK BLOOD SUGAR DAILY WITH METER DIRECTED Active Janumet XR 50-1000 MG TAKE 2 TABLETS BY MOUTH WIT H EVENING MEAL ONCE A DAY Orally Daily Active AetherPal Ultra System w/Device as directed E11.9 Daily for gluco se testing Aug, Active One touch ultra blue as directed E11.9 Daily Aug, Active Steglatro 15 MG TAKE ONE TABLET BY MOUTH EVERY DAY for 90 Active Glimepiride 4 mg TAKE 2 TABLETS ONCE DAILY WI TH BREAKFAST OR THE FIRST MAIN MEAL OF THE DAY Active EpiPen 2-Ravi 0.3 MG/0.3ML as directed for anaphylaxis Injection once Nov, Active Metoprolol Succinate ER 25 MG 2 tabs in am, 1 in pm Orally bid Active amLODIPine Besylate 10 MG 1 tablet Orally instead of a mlodipine-benazepril before surgery Once a day Feb, Active PROCEDURES No Information RESULTS No Results REASON FOR VISIT 4 month follow up MEDICAL (GENERAL) HISTORY Type Description Date Medical History abnormal ECG (poor R wave progression) 1 Medical History Negative nuclear stress test 04/2014 Medical History Atrial Fibrillation Medical History Echo 02/2014, normal EF Medical History DM 2009 Medical History Steatohepatitis Medical History ROMEL Medical History Essential hypertension Medical History AT PATIENT REQUEST ALWAYS TR Y [facility] DRUG FIRST THEY GET FOR FREE Medical History Bowel obstruction w/infection Medical History Type 2 diabetes mellitus with other spec ified complication Medical History Atrial fibrillation Medical History broke left fibula 10/23/2019 Surgical History Hemicolectomy, colon CA 2003 Surgical History colonoscopy, 4 polyps removed. 2013 Surgical History Cardiac ablation for AFib 06/2012, 2014, 2018 Surgical History Pacemaker placement (Cardiol ogist Dr. Marquise Rivera) Ballast Regulator Operator Dr. Monroe, both at [facility] 2012 Surgical History pAROTOID TUMOR 2002 Surgical History Rt knee 1979 meniscus surgery Surgical History Rt knee 1979 additional knee surgery on meniscus, cartilage Surgical History Kidney stone bilateral, most recent 2013 Surgical History Ventral Hernia Surgical History Cardiac ablation october 20142014 Surgical History Small bowel resection and repair 11/29/16 Surgical History heart ablation 08/14/18 Surgical History Right knee replacement 04/10/2020 Hospitalization History Surgery Goals Section No Information Health Concerns No Information MEDICAL EQUIPMENT No Information MENTAL STATUS No Information FUNCTIONAL STATUS No Information ASSESSMENTS Encounter Date Diagnosis Assessment Notes Treatment Notes Treatm ent Clinical Notes Feb, Hypertension (ICD-10 - I10) Feb, Diabetes mellitus with nephropathy (ICD-10 - E11 .21) Feb, Mixed hyperlipidemia (ICD-10 - E78.2) Feb, Anaphylaxis, initial encounter (ICD-10 - T78.2XX A) Feb, Bee allergy status (ICD-10 - Z91.030) Feb, Immunization not carried out because of patient refusal (ICD-10 - Z28.21) Feb, H/O cardiac radiofrequency ablation (ICD-10 - Z9 8.890) PLAN OF TREATMENT Medication Medication Name Sig Start Date Stop Date Eliquis 5 MG TAKE ONE TABLET BY MOUTH TWICE A DAY Orally bid EpiPen 2-Ravi 0.3 MG/0.3ML as directed for anaphylaxis Inject ion once Nov, OneTouch UltraSoft Lancets - as directed E11.9 Daily Aug, amLODIPine Besy-Benazepril HCl 10-40 MG TAKE 1 CAPSULE BY MOUTH ONCE A DAY Orally ONCE A DAY OneTouch Ultra Test - CHECK BLOOD SUGAR DAILY WITH METER DIR ECTED Ezetimibe 10 MG 1 tablet Orally 3 x weekly Simvastatin 20 MG 1 tablet in the evening Orally 3 x weekly Zyloprim 100 MG 1 tablet Orally Once a day May, EpiPen 2-Ravi 0.3 MG/0.3ML as directed Injection Oct, Kwdyn-3-bgaf Ethyl Esters 1 GM 2 capsules Orally Twice a day Nov, Janumet XR 50-1000 MG TAKE 2 TABLETS BY MOUTH WIT H EVENING MEAL ONCE A DAY Orally Daily Allopurinol 100 MG 1 tablet Orally Once a day May, Glimepiride 4 mg TAKE 2 TABLETS ONCE DAILY WI TH BREAKFAST OR THE FIRST MAIN MEAL OF THE DAY One touch ultra blue as directed E11.9 Daily Aug, Metoprolol Succinate ER 25 MG 2 tabs in am, 1 in pm Orally bid Ocuvite - 1 tab Orally once daily OneTouch Ultra System w/Device as directed E11.9 Daily for g lucose testing Aug, Steglatro 15 MG TAKE ONE TABLET BY MOUTH EVERY DAY for 90 Colace 100 MG 1 capsule as needed Orally Once a day Mar, amLODIPine Besylate 10 MG 1 tablet Orally instead of a mlodipine-benazepril before surgery Once a day Feb, Future Test Test Name Order Date LIPID PANEL (CARDIAC RISK) 20210223 Comprehensive Metabolic Profile (CMP) 20210223 TSH 20210223 HEMOGLOBIN A1c 20210223 MICROALBUMIN RANDOM [id number] Next Appt Details 4 Months Reason: Provider Name:Law Barillas, 2021-06-28 09 :30:00 AM, Annie MORAES, , [place], [address], Insurance Providers Payer Name Payer Address Payer Phone Insured Name Patient Relati onship to Insured Coverage Start Date Coverage End Date MEDICARE BLUE PPO [address] [id number] NOEMI ELLIOTT self
--- OUTSIDE RECORDS SUMMARY | 2021-03-21 06:53 | CCD | Continuity of Care Document ---
Author Author Sj ALONSO M.D. Organization Unknown Address [address], [address] [place] [address] Phone [phone] Care Team Providers Care Shipboard Intelligence Analyst Name Role Phone Law Barillas M.D. AUTM [phone] AUTM Unavailable Problems Active Problems Provider Date Obstructive sleep apnea syndrome Lay Mello, NathanNYovani Onset: 10/22/2016 Essential hypertension Chapin Krishnamurthy MD [...] Tablets 1tab 3x/wk Unknown Ocuvite qd Unknown Wddmz-8-Txfl Ethyl Esters 1gm Caps ules 2caps bid Unknown [place] 3 every day Unknown Immunizations Description No Information Available Vital Signs Date Vital Result Comment 02/02/2021 8:29am BP Systolic 130 mmHg BP Diastolic 70 mmHg Heart Rate 60 /min O2 % BldC Oximetry 96 % Height 67 inches 5'7" Weight 248.00 lb BMI (Body Mass Index) 38.8 kg/m2 [place] Body Weight 148 lb Weight 112.493 kg BSA (Body Surface Area) 2.22 m2 02/01/2020 8:21am BP Systolic 124 mmHg BP Diastolic 80 mmHg Heart Rate 69 /min O2 % BldC Oximetry 99 % Room Air Height 67 inches 5'7" Weight 245.00 lb BMI (Body Mass Index) 38.4 kg/m2 [place] Body Weight 148 lb Weight 111.132 kg BSA (Body Surface Area) 2.20 m2 Results Description No Information Available Procedures Date Code Description Status 02/02/2021 83628 Office/Outpatient Established Lo w MDM 20-29 Min Completed Medical Devices Description No Information Available Encounters Type Date Location Provider Dx Diagnosis Office Visit 02/02/2021 8:30a [facility] Pulmonary/Thoracic Lawrenc elmer Vasquez MD G47.33 Obstructive sleep apnea (adult) (pediatr ic) Z79.02 lobsterman (current) use of a ntithrombotics/antiplatelets Assessments Date Code Description Provider 02/02/2021 G47.33 Obstructive sleep apnea (adult) (pediatric) Manohar Vasquez MD 02/02/2021 Z79.02 lobsterman (current) use of antit hrombotics/antiplatelets Manohar Vasquez MD Plan of Treatment Future Appointment(s):* 02/12/2022 9:00 am - Manohar Vasquez MD at [facility] Pulmonary/Thoracic Functional Status Description No Information Available Mental Status Description No Information Available Referrals Refer to Reason for Referral Status Appt Date Ralph Alonso M.D. COLO SCREENING - HX OF [place] Scheduled 02/09/2021 [facility], [address] [place], [place] [address] [phone]
--- OUTSIDE RECORDS SUMMARY | 2021-03-21 06:53 | CCD ---
Continuity of Care Document (CCD) Created on: 02/20/2021 Sj Soler External Reference #: [id number] : [id number] Sex: Male Author Author Sj DOBSON M.D. Organization Unknown Address [address], [place] [address] Phone [phone] Care Team Providers Care Glue Mill Operator Name Role Phone Law Barillas MD [...] route once as needed for anaphylaxis Unknown Qtjvq-7-Vgmw Ethyl Esters 1gm Caps ules take 2 [...] Available Procedures Date Code Description Status 02/20/2021 64923 Allergy Antigens Mult Dose Vials , Five Insect Venoms Completed 02/20/2021 08157 Allergy Antigens Mult Dose Vials , Three Insect Venoms Completed 02/20/2021 52995 Allergy Injection 2 Or More Comp leted 02/13/2021 79005 Allergy Antigens Mult Dose Vials , Five Insect Venoms Completed 02/13/2021 24351 Allergy Injection 2 Or More Comp leted 02/06/2021 73689 Allergy Antigens Mult Dose Vials , Five Insect Venoms Completed 02/06/2021 44082 Allergy Injection 2 Or More Comp leted 01/09/2021 55265 Office/Outpatient Established w [facility] 20-29 Min Completed Medical Devices Description No [...] bees, a mieshadental, subs Hernan Dobson M.D. 02/20/2021 T63.451D Toxic [...]
--- OUTSIDE RECORDS SUMMARY | 2021-03-21 06:54 | CCD | Continuity of Care Document ---
Author Author Sj VASQUEZ MD Organization Unknown Address [address] [place] [address] Phone [phone] Care Team Providers Care Fertilizer Processing Supervisor Name Role Phone Law Barillas M.D. AUTM [phone] AUTM Unavailable Problems Active Problems Provider Date [...] Tablets 1tab 3x/wk Unknown Ocuvite qd Unknown Fnclg-2-Zuex Ethyl Esters 1gm Caps ules 2caps bid Unknown [place] 3 every day Unknown Immunizations Description No Information Available Vital Signs Date Vital Result Comment 02/02/2021 8:29am BP Systolic 130 mmHg BP Diastolic 70 mmHg Heart Rate 60 /min O2 % BldC Oximetry 96 % Height 67 inches 5'7" Weight 248.00 lb BMI (Body Mass Index) 38.8 kg/m2 [place] Body Weight 148 lb Weight 112.493 kg BSA (Body Surface Area) 2.22 m2 02/01/2020 8:21am BP Systolic 124 mmHg BP Diastolic 80 mmHg Heart Rate 69 /min O2 % BldC Oximetry 99 % Room Air Height 67 inches 5'7" Weight 245.00 lb BMI (Body Mass Index) 38.4 kg/m2 [place] Body Weight 148 lb Weight 111.132 kg BSA (Body Surface Area) 2.20 m2 Results Description No Information Available Procedures Description No Information Available Medical Devices Description No Information Available Encounters Description No Information Available Assessments Date Code Description Provider 02/02/2021 G47.33 Obstructive sleep apnea (adult) (pediatric) Manohar Vsaquez MD 02/02/2021 Z79.02 senior living (current) use of antit hrombotics/antiplatelets Manohar Vasquez MD Plan of Treatment Future Appointment(s):* 02/12/2022 9:00 am - Manohar Vasquez MD at [facility] Pulmonary/Thoracic * 02/09/2021 9:20 am - Ralph Tenorio M.D. at [facility] Gastroenterology Practice 02/02/2021 - Manohar Vasquez MD* G47.33 Obstructive sleep apnea (adult) (pediatric) * Z79.02 extermination inspector (current) use of antithrombotics/antiplatelets * * New Orders:* CPAP/BIPAP Supply, Ordered: 02/02/21 * Follow up:* 12 months....no testing Functional Status Description No Information Available Mental Status Description No Information Available Referrals Refer to Reason for Referral Status Appt Date Ralph Tenorio M.D. COLO SCREENING - HX OF [place] Scheduled 02/09/2021 [facility], [facility] [address] [place] [address] [phone]
--- OUTSIDE RECORDS SUMMARY | 2021-03-21 06:54 | CCD ---
Author Author [facility] Organization [facility] Address Unknown Phone Unavailable Care Team Providers Care Trial Attorney Name Role Phone Law Barillas Unavailable PROBLEMS Type Condition ICD9-CM Code WQZ02-CB Code Onset Dates Condition S tatus W/U Status Risk SNOMED Code Notes Problem Other specific arthropathies, not elsewhere clas sified, left shoulder M12.812 Active confirmed 870567878 Problem Steatohepatitis K75.81 Active confirmed 4421 42174 Problem Hypertension I10 Active confirmed 8715969 3 Problem Personal history of other diseases of the circulatory syst em Z86.79 Active confirmed 863340803 Problem Rotator cuff tear arthropathy of both shoulders M1 2.811 Active confirmed 403828259 Problem Diabetes mellitus E11.9 Active confirmed 73 035199 Problem 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 Activ e confirmed 93421656 Problem Uric acid kidney stone N20.0 Active confirmed 76545245 Problem Mixed hyperlipidemia E78.2 Active confirmed 022023777 Problem H/O cardiac radiofrequency ablation Z98.890 Acti ve confirmed 801083391 Problem Ureterolithiasis N20.1 Active confirmed 310 06514 Problem Cardiac pacemaker in situ Z95.0 Active confirmed 876646536 Problem Encounter for immunization Z23 Active confirmed 592708415 Problem 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 Active confirmed 780273023 Problem ROMEL (obstructive sleep apnea) G47.33 Active confirm ed 11067740 Problem Paroxysmal a-fib I48.0 Active confirmed 282 222357 Problem Paroxysmal atrial fibrillation I48.0 Active confir med 674948568 Problem Medicare annual wellness visit, subsequent Z00.00 Active confirmed 235270826 Problem Primary osteoarthritis of right knee M17.11 Act alison confirmed [id number] ALLERGIES Allergen (clinical drug ingredient) Drug/Non Drug Allergy do cumented on EMR Reaction Allergy Type Onset Date Status Bee sting Anaphylaxis Non Drug Allergy 10/25/2020 Active ENCOUNTERS from 1950 to 2021-01-18 Encounter Location Date Provider Diagnosis [facility] Brennan MORAES [phone] [place] [phone] 31 Dec, 2020 Law Barillas IMMUNIZATIONS Vaccine Route Administration Date Status Influenza [...] Pneumovax 23 Unknown Feb 18 13 Administered COVID-19 dose #1 given elsewhere Unspecified IM Intramuscular Ja n 2020 Administered TDAP 0.5mL (Boostrix) Unknown Mar 15, 2014 Administer ed COVID-19 dose #2 given elsewhere Unspecified IM Intramuscular Fe b 2020 Administered Pneumococcal 0.5mL Prevnar 13 IM Intramuscular November 15, 2016 A dministered Influenza 6mo & up Fluzone Unknown Mar 19, 2016 Admin istered SOCIAL HISTORY Tobacco Use: Social History Observation Description Date Details (start date - stop date) Former Smoker Sex Assigned At : Social History Observation Description Sex Assigned At Unknown Audit Question Answer Notes Total Score: 0 Interpretation: Alcohol Education Language: Question Answer Notes Languages spoken: Turkmen Baptism: Question Answer Notes Baptism 33 None Domestic Violence: Question Answer Notes Status: Sexual Hx: Question Answer Notes Had sex in the last 12 months (vaginal, oral, or anal)? No Have you ever had an STD? No Drug and Alcohol Question Answer Notes Total Score: 1 Interpretation: Low level Alcohol Screening: Question Answer Notes Did you [...] since you last smoked? > 10 years [id number]/03/2020 REASON FOR REFERRAL No Information VITAL SIGNS No information MEDICATIONS Medication SIG (Take, Route, Frequency, Duration) Notes Start Da te End Date Status Steglatro 15 MG 1 tablet Orally Once a day for 90 Active OneTouch UltraSoft Lancets - as directed E11.9 Daily 2016 Active Allopurinol 100 MG 1 tablet Orally Once a day for 30 day(s) May, Active Metoprolol Succinate ER 25 MG 2 tabs in am, 1 in pm Orally bid Active EpiPen 2-Ravi 0.3 MG/0.3ML as directed for anaphylaxis Injection once Nov, Active EpiPen 2-Ravi 0.3 MG/0.3ML as directed Injection Oct, Active Ezetimibe 10 MG 1 tablet Orally Once a day for 90 days Active One touch ultra blue as directed E11.9 Daily Aug, Active Simvastatin 20 MG 1 tablet in the evening Orally 3 x weekly Active Gpijq-8-xruo Ethyl Esters 1 GM 2 capsules Orally Twice a day for 90 day(s) Nov, Active Eliquis 5 MG TAKE ONE TABLET BY MOUTH TWICE A DAY Orally bid Active Janumet XR 50-1000 MG TAKE 2 TABLETS BY MOUTH WIT H EVENING MEAL ONCE A DAY Orally Daily Active Buru Buru Ultra System w/Device as directed E11.9 Daily for gluco se testing Aug, Active Glimepiride 4 MG 2 tablet with breakfast or t he first main meal of the day Orally Once a day Active amLODIPine Besy-Benazepril HCl 10-40 MG TAKE 1 CAPSULE BY MOUTH ONCE A DAY Orally ONCE A DAY Active amLODIPine Besylate 10 MG 1 tablet Orally instead of a mlodipine-benazepril before surgery Once a day Feb, Active Colace 100 MG 1 capsule as needed Orally Once a day Mar Active Riptide IOTouch Ultra Test - CHECK BLOOD SUGAR DAILY WITH METER DIRECTED Active Ocuvite - 1 tab Orally once daily A ctive Zyloprim 100 MG 1 tablet Orally Once a day May, Active PROCEDURES No Information RESULTS No Results REASON FOR VISIT COVID booster note MEDICAL (GENERAL) HISTORY Type Description Date Medical [...] Pacemaker placement (Cardiol ogist Dr. Marquise Rivera) Intensive Care Specialist Dr. Monroe, both at [facility] 2012 Surgical History pAROTOID TUMOR 2002 Surgical History Rt knee 1978 meniscus surgery Surgical History Rt knee 1979 [...] No Information FUNCTIONAL STATUS No Information ASSESSMENTS No Information PLAN OF TREATMENT Medication Medication Name Sig Start Date Stop Date Mxcpq-9-rlrm Ethyl Esters 1 GM 2 capsules Orally Twice a day for 90 day(s) Nov, Buru Buru Ultra Test - CHECK BLOOD SUGAR DAILY WITH METER DIR ECTED Simvastatin 20 MG 1 tablet in the evening Orally 3 x weekly One touch ultra blue as directed E11.9 Daily Aug, Janumet XR 50-1000 MG TAKE 2 TABLETS BY MOUTH WIT H EVENING MEAL ONCE A DAY Orally Daily Ezetimibe 10 MG 1 tablet Orally Once a day for 90 days Metoprolol Succinate ER 25 MG 2 tabs in am, 1 in pm Orally bid Steglatro 15 MG 1 tablet Orally Once a day for 90 Colace 100 MG 1 capsule as needed Orally Once a day Mar, iLost System w/Device as directed E11.9 Daily for g lucose testing Aug, EpiPen 2-Ravi 0.3 MG/0.3ML as directed Injection Oct, amLODIPine Besy-Benazepril HCl 10-40 MG TAKE 1 CAPSULE BY MOUTH ONCE A DAY Orally ONCE A DAY Ocuvite - 1 tab Orally once daily Eliquis 5 MG TAKE ONE TABLET BY MOUTH TWICE A DAY Orally bid Glimepiride 4 MG 2 tablet with breakfast or t he first main meal of the day Orally Once a day amLODIPine Besylate 10 MG 1 tablet Orally instead of a mlodipine-benazepril before surgery Once a day Feb, OneTouch UltraSoft Lancets - as directed E11.9 Daily Aug, 7 Zyloprim 100 MG 1 tablet Orally Once a day May, Next Appt Details Provider Name:Law Dineroh, 2021-02-23 09 :30:00 AM, [address] , , [place], [address], Insurance Providers Payer Name Payer Address Payer Phone Insured Name Patient Relati onship to Insured Coverage Start Date Coverage End Date MEDICARE BLUE PPO [address] [facility] BLUE [address] [address] [place] self
--- OUTSIDE RECORDS SUMMARY | 2021-03-21 06:54 | CCD | Continuity of Care Document ---
Author Author Sj DOBSON M.D. Organization Unknown Address [address], [place] [address] Phone [phone] Care Team Providers Care Process Validation Engineer Name Role Phone Law Barillas MD AUTM [...] route once as needed for anaphylaxis Unknown Gkdlj-4-Ykwi Ethyl Esters 1gm Caps ules take 2 capsules once daily Law Barillas MD Immunizations Description No Information Available Vital Signs Date Vital Result Comment 01/09/2021 8:48am Weight 250.25 lb Height 65.75 inches 5'5.75" Heart Rate 76 /min Respiratory Rate 18 /min BP Systolic 135 mmHg BP Diastolic 76 mmHg BMI (Body Mass Index) 40.7 kg/m2 01/08/2020 8:46am Weight 248.12 lb Height 65.75 inches 5'5.75" Heart Rate 61 /min Respiratory Rate 20 /min BP Systolic 146 mmHg BP Diastolic 76 mmHg BMI (Body Mass Index) 40.3 kg/m2 Results Description No Information Available Procedures Description No Information Available Medical Devices Description No Information Available Encounters Description No Information Available Assessments Date Code Description Provider 01/09/2021 T63.441D Toxic effect of veno m of bees, accidental (unintentional), subsequent encounter Hernan Dobson M.D. 01/09/2021 T63.451D Toxic effect of veno m of hornets, accidental (unintentional), subsequent encounter Hernan Dobson M.D. 01/09/2021 T63.461D Toxic effect of veno m of wasps, accidental (unintentional), subsequent encounter Hernan Dobson M.D. Plan of Treatment 01/09/2021 - Hernan Dobson M.D.* T63.441D Toxic effect of venom of bees, accidental (unintentional), subsequent encounter* Recommendations:* Bee avoidance measures were reviewed and recommended. Access to injectable epin ephrine is necessary. Proper administration/technique of EpiPen device was reviewed and demonstrated with the patient in office today. Venom immunotherapy was explained and if his reactions keep progressing Mr. Soler should strongly consider starting IT. The risks and benefits associated with venom immunotherapy were reviewed in detail as well. * T63.451D Toxic effect of venom of hornets, accidental (unintentional), subsequent encounter* Recommendations:* See recommendations above. * T63.461D Toxic effect of venom of wasps, accidental (unintentional), subsequent encounter* Recommendations:* See recommendations above. * All * Comments:* Patient will contact our office should he decide to start venom immunotherapy. * Follow up:* 12 months. Sooner if needed. Functional Status Description No Information Available Mental Status Description No Information Available Referrals Description No Information Available
--- OUTSIDE RECORDS SUMMARY | 2021-03-21 06:54 | CCD | Continuity of Care Document ---
Author Author Sj DOBSON M.D. Organization Unknown Address [address], [address], [place] [address] Phone [phone] Care Team Providers Care Career Manager Name Role Phone Law Barillas MD AUTM [...] route once as needed for anaphylaxis Unknown Njdmm-8-Agas Ethyl Esters 1gm Caps ules take 2 [...] Information Available Procedures Date Code Description Status 01/09/2021 47774 Office/Outpatient Established Lo w MDM 20-29 Min [...] accidental, subs Assessments Date Code Description Provider 01/09/2021 T63.441D Toxic effect of veno m of bees, accidental (unintentional), subsequent encounter Hernan Dobson M.D. 01/09/2021 T63.451D Toxic effect of veno m of hornets, accidental (unintentional), subsequent encounter Hernan Dobson M.D. 01/09/2021 T63.461D Toxic effect of veno m of wasps, accidental (unintentional), subsequent encounter Hernan Dobson M.D. Plan of Treatment Future Appointment(s):* 01/09/2022 9:15 am - Hernan Dobson M.D. at Main Office 01/09/2021 - Hernan Dobson M.D.* T63.441D Toxic [...]
--- OUTSIDE RECORDS SUMMARY | 2021-03-21 06:54 | CCD ---
Author Author [facility] Organization [facility] Address Unknown Phone Unavailable Care Team Providers Care Kiln Tester Name Role Phone Joselito Mccarty Unavailable PROBLEMS Type Condition ICD9-CM Code WMY61-[place] Code Onset Dates Condition S tatus W/U Status Risk SNOMED Code Notes Problem Other specific arthropathies, not elsewhere clas sified, left shoulder M12.812 Active confirmed 800668090 Problem Steatohepatitis K75.81 Active confirmed 4421 24176 Problem Hypertension I10 Active confirmed 5102171 3 Problem Personal history of other diseases of the circulatory syst em Z86.79 Active confirmed 573042682 Problem Rotator cuff tear arthropathy of both shoulders M1 2.811 Active confirmed 676903055 Problem Diabetes mellitus E11.9 Active confirmed 73 481391 Problem 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 Activ e confirmed 07934208 Problem Uric acid kidney stone N20.0 Active confirmed 82679758 Problem Mixed hyperlipidemia E78.2 Active confirmed 176322198 Problem H/O cardiac radiofrequency ablation Z98.890 Acti ve confirmed 872781220 Problem Ureterolithiasis N20.1 Active confirmed 310 83720 Problem Cardiac pacemaker in situ Z95.0 Active confirmed 857473297 Problem Encounter for immunization Z23 Active confirmed 757767717 Problem 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 Active confirmed 108156604 Problem ROMEL (obstructive sleep apnea) G47.33 Active confirm ed 72903703 Problem Paroxysmal a-fib I48.0 Active confirmed 282 789008 Problem Paroxysmal atrial fibrillation I48.0 Active confir med 462161927 Problem Medicare annual wellness visit, subsequent Z00.00 Active confirmed 597858423 Problem Primary osteoarthritis of right knee M17.11 Act alison confirmed [id number] ALLERGIES Allergen (clinical drug ingredient) Drug/Non Drug Allergy do cumented on EMR Reaction Allergy Type Onset Date Status Bee sting Anaphylaxis Non Drug Allergy 10/25/2020 Active ENCOUNTERS from 1950 to 2021-01-24 Encounter Location Date Provider Diagnosis [facility] Genesis MORAES [phone] [place] [phone] 07 Jan, 2021 Joselito Mccarty Diabetes mellitus with nephropathy E11.2 1 IMMUNIZATIONS Vaccine Route Administration Date Status COVID-19 dose #1 given elsewhere Unspecified IM Intramuscular Ja n 2020 Administered Influenza Pharmacy Given Unknown Mar 03, 2020 Adminis tered Zoster 50mcg/0.5mL Shingrix IM Intramuscular October 27, 2019 Adm inistered Influenza (High Dose 65 & up) Unknown Mar 20, 2018 Ad ministered Zoster 0.65mL Zostavax Unknown November 26, 2013 Administe red Pneumococcal Adult 0.5mL Pneumovax 23 Unknown Feb 18 13 Administered COVID-19 dose #2 given elsewhere Unspecified IM Intramuscular Fe b 2020 Administered TDAP 0.5mL (Boostrix) Unknown Mar 15, 2014 Administer ed Pneumococcal Adult 0.5mL Pneumovax 23 IM Intramuscular September 10, 2019 Administered Pneumococcal 0.5mL Prevnar 13 IM Intramuscular [...] Education Language: Question Answer Notes Languages spoken: Lao Anabaptism: Question Answer Notes Anabaptism 33 None Domestic Violence: Question Answer Notes [...] since you last smoked? > 10 years [id number]/03/2020 REASON FOR REFERRAL No Information VITAL SIGNS No information MEDICATIONS Medication SIG (Take, Route, Frequency, Duration) Notes Start Da te End Date Status EpiPen 2-Ravi 0.3 MG/0.3ML as directed for anaphylaxis Injection once Nov, Active Steglatro 15 MG 1 tablet Orally Once a day for 90 Active Glimepiride 4 MG 2 tablet with breakfast or t he first main meal of the day Orally Once a day for 90 day(s) Active Metoprolol Succinate ER 25 MG 2 tabs in am, 1 in pm Orally bid Active Allopurinol 100 MG 1 tablet Orally Once a day for 30 day(s) May, Active EpiPen 2-Ravi 0.3 MG/0.3ML as directed Injection Oct, Active Ezetimibe 10 MG 1 tablet Orally Once a day for 90 days Active One touch ultra blue as directed E11.9 Daily Aug, Active Simvastatin 20 MG 1 tablet in the evening Orally 3 x weekly Active Uflww-7-eanj Ethyl Esters 1 GM 2 capsules Orally Twice a day for 90 day(s) Nov, Active Eliquis 5 MG TAKE ONE TABLET BY MOUTH TWICE A DAY Orally bid Active Janumet XR 50-1000 MG TAKE 2 TABLETS BY MOUTH WIT H EVENING MEAL ONCE A DAY Orally Daily Active MusicmetricToArtwardly Ultra System w/Device as directed E11.9 Daily for gluco se testing Aug, Active Zyloprim 100 MG 1 tablet Orally Once a day May, Active amLODIPine Besy-Benazepril HCl 10-40 MG TAKE 1 CAPSULE BY MOUTH ONCE A DAY Orally ONCE A DAY Active amLODIPine Besylate 10 MG 1 tablet Orally instead of a mlodipine-benazepril before surgery Once a day Feb, Active Colace 100 MG 1 capsule as needed Orally Once a day Mar Active MusicmetricTouch Ultra Test - CHECK BLOOD SUGAR DAILY WITH METER DIRECTED Active Ocuvite - 1 tab Orally once daily A ctive OneTouch UltraSoft Lancets - as directed E11.9 Daily 2016 Active PROCEDURES No Information RESULTS No Results REASON FOR VISIT renewal MEDICAL (GENERAL) HISTORY Type Description Date Medical [...] Pacemaker placement (Cardiol ogist Dr. Marquise Rivera) Senior Research Executive Dr. Monroe, both at [facility] 2012 Surgical History pAROTOID TUMOR 2002 Surgical [...] Notes Treatment Notes Treatm ent Clinical Notes Jan, Diabetes mellitus with nephropathy (ICD-10 - E11 .21) PLAN OF TREATMENT Medication Medication Name Sig Start Date Stop Date Bbczy-4-expv Ethyl Esters 1 GM 2 capsules Orally Twice a day for 90 day(s) Nov, Extend Labs Ultra Test - CHECK BLOOD SUGAR DAILY [...] in am, 1 in pm Orally bid Glimepiride 4 MG 2 tablet with breakfast or t he first main meal of the day Orally Once a day for 90 day(s) Colace 100 MG 1 capsule as needed Orally Once a day Mar, Hi-G-Tek System w/Device as directed E11.9 Daily for g lucose testing Aug, EpiPen 2-Ravi 0.3 MG/0.3ML as directed Injection 08 Oct, 2020 amLODIPine Besy-Benazepril HCl 10-40 MG TAKE 1 CAPSULE BY MOUTH ONCE A DAY Orally ONCE A DAY Ocuvite - 1 tab Orally once daily Eliquis 5 MG TAKE ONE TABLET BY MOUTH TWICE A DAY Orally bid Zyloprim 100 MG 1 tablet Orally Once a day May, amLODIPine Besylate 10 MG 1 tablet Orally instead of a mlodipine-benazepril before surgery Once a day Feb, Steglatro 15 MG 1 tablet Orally Once a day for 90 OneTouch UltraSoft Lancets - as directed E11.9 Daily Aug, Next Appt Details Provider Name:Law Barillas, 2021-02-23 09 :30:00 AM, [address], , [place], [address], Insurance Providers Payer Name Payer Address Payer Phone Insured Name Patient Relati onship to Insured Coverage Start Date Coverage End Date MEDICARE BLUE PPO [address] BLUE [address] [facility] [id number] [address] self
--- OUTSIDE RECORDS SUMMARY | 2021-03-21 06:54 | CCD | Continuity of Care Document ---
Author Author Sj DOBSON M.D. Organization Unknown Address [address], [address], [place] [address] Phone [phone] Care Team Providers Care Human Service Coordinator Name Role Phone Law Barillas MD AUTM [...] route once as needed for anaphylaxis Unknown Ygmjc-0-Wwqt Ethyl Esters 1gm Caps ules take 2 [...] Information Available Procedures Date Code Description Status 02/06/2021 76536 Allergy Injection 2 Or More Comp leted 01/09/2021 89284 Office/Outpatient Established Lo w MDM 20-29 Min [...]
--- OUTSIDE RECORDS SUMMARY | 2021-03-21 06:55 | CCD ---
Author Author [facility] Organization [facility] Address Unknown Phone Unavailable Care Team Providers [employer] Sales Representative Name Role Phone Chava Iraheta MD Unavailable Unavailable Chava Iraheta MD Unavailable Unavailable Chava Iraheta MD Unavailable Unavailable Chava Iraheta MD Unavailable Unavailable Chava Iraheta MD Unavailable Unavailable Chava Iraheta MD Unavailable Unavailable Chava Iraheta MD Unavailable Unavailable Chava Iraheta MD Unavailable Unavailable Chava Iraheta MD Unavailable Unavailable Chava Iraheta MD Unavailable Unavailable Chava Iraheta MD Unavailable Unavailable Chava Iraheta MD Unavailable Unavailable Chava Iraheta MD Unavailable Unavailable Chava Iraheta MD Unavailable Unavailable Chava Iraheta MD Unavailable Unavailable Chava Iraheta MD Unavailable Unavailable Chava Iraheta MD Unavailable Unavailable Chava Iraheta MD Unavailable Unavailable Chava Iraheta MD Unavailable Unavailable Chava Iraheta MD Unavailable Unavailable Chava Iraheta MD Unavailable Unavailable Chava Iraheta MD Unavailable Unavailable Chava Iraheta MD Unavailable Unavailable Chava Iraheta MD Unavailable Unavailable Chava Iraheta MD Unavailable Unavailable Chava Iraheta MD Unavailable Unavailable Chava Iraheta MD Unavailable Unavailable Chava Iraheta MD Unavailable Unavailable Chava Iraheta MD Unavailable Unavailable Chava Iraheta MD Unavailable Unavailable Chava Iraheta MD Unavailable Unavailable Chava Iraheta MD Unavailable Unavailable Chava Iraheta MD Unavailable Unavailable Greenky, S George MD Unavailable Unavailable Greenky, S George MD Unavailable Unavailable Greenky, S George MD Unavailable Unavailable Greenky, S George MD Unavailable Unavailable Greenky, S George MD Unavailable Unavailable Greenky, S George MD Unavailable Unavailable Greenky, S George MD Unavailable Unavailable Greenky, S George MD Unavailable Unavailable Greenky, S George MD Unavailable Unavailable Greenky, S George MD Unavailable Unavailable Greenky, S George MD Unavailable Unavailable Greenky, S George MD Unavailable Unavailable Greenky, S George MD Unavailable Unavailable Greenky, S George MD Unavailable Unavailable Greenky, S George MD Unavailable Unavailable Greenky, S George MD Unavailable Unavailable Greenky, S George MD Unavailable Unavailable Greenky, S George MD Unavailable Unavailable Greenky, S George MD Unavailable Unavailable Greenky, S George MD Unavailable Unavailable Greenky, S George MD Unavailable Unavailable Greenky, S George MD Unavailable Unavailable Greenky, S George MD Unavailable Unavailable Greenky, S George MD Unavailable Unavailable Greenky, S George MD Unavailable Unavailable Greenky, S George MD Unavailable Unavailable Greenky, S George MD Unavailable Unavailable Greenky, S George MD Unavailable Unavailable Greenky, S George MD Unavailable Unavailable Greenky, S George MD Unavailable Unavailable Greenky, S George MD Unavailable Unavailable Greenky, S George MD Unavailable Unavailable Greenky, S George MD Unavailable Unavailable Greenky, S George MD Unavailable Unavailable Greenky, S George MD Unavailable Unavailable Greenky, S George MD Unavailable Unavailable Greenky, S George MD Unavailable Unavailable Greenky, S George MD Unavailable Unavailable Greenky, S George MD Unavailable Unavailable Greenky, S George MD Unavailable Unavailable Greenky, S George MD Unavailable Unavailable Greenky, S George MD Unavailable Unavailable Greenky, S George MD Unavailable Unavailable Greenky, S George MD Unavailable Unavailable Greenky, S George MD Unavailable Unavailable Greenky, S George MD Unavailable Unavailable Greenky, S George MD Unavailable Unavailable Greenky, S George MD Unavailable Unavailable Greenky, S George MD Unavailable Unavailable Greenky, S George MD Unavailable Unavailable Greenky, S George MD Unavailable Unavailable Greenky, S George MD Unavailable Unavailable Greenky, S George MD Unavailable Unavailable Greenky, S George MD Unavailable Unavailable Greenky, S George MD Unavailable Unavailable Greenky, S George MD Unavailable Unavailable Ileana Ghosh Unavailable Unavailable [place], A Tena PA Unavailable Unavailable Davina, A Tena PA Unavailable Unavailable [place], A Tena PA Unavailable Unavailable [place], A Tena PA Unavailable Unavailable [place], A Tena PA Unavailable Unavailable [place], A Tena PA Unavailable Unavailable Davina, A Tena PA Unavailable Unavailable [place], A Tena PA Unavailable Unavailable Davina, A Tena PA Unavailable Unavailable [place], A Tena PA Unavailable Unavailable Davina, A Tena PA Unavailable Unavailable [place], A Tena PA Unavailable Unavailable [place], A Tena PA Unavailable Unavailable [place], A Tena PA Unavailable Unavailable Davina, A Tena PA Unavailable Unavailable Davina, A Tena PA Unavailable Unavailable [place], A Tena PA Unavailable Unavailable [place], A Tena PA Unavailable Unavailable [place], A Tena PA Unavailable Unavailable [place], A Tena PA Unavailable Unavailable [place], A Tena PA Unavailable Unavailable Davina, A Tena PA Unavailable Unavailable [place]ina, A Tena PA Unavailable Unavailable [place]ina, A Tena PA Unavailable Unavailable [place], A Tena PA Unavailable Unavailable Davina, A Tena PA Unavailable Unavailable [place]ina, A Tena PA Unavailable Unavailable [place], A Tena PA Unavailable Unavailable Davina, A Tena PA Unavailable Unavailable [place], A Tnea PA Unavailable Unavailable [place], A Tena PA Unavailable Unavailable VU TOVAR MD Unavailable Unavailable GUYVU MD Unavailable Unavailable GUYVU MD Unavailable Unavailable GUYVU MD Unavailable Unavailable GYUVU MD Unavailable Unavailable GUYVU MD Unavailable Unavailable GUYVU MD Unavailable Unavailable GUYVU MD Unavailable Unavailable GUYVU MD Unavailable Unavailable GUYVU MD Unavailable Unavailable GUYVU MD Unavailable Unavailable GUYVU MD Unavailable Unavailable GUYVU MD Unavailable Unavailable GUYVU MD Unavailable Unavailable GUYVU MD Unavailable Unavailable GUYVU MD Unavailable Unavailable GUYVU MD Unavailable Unavailable GUYVU MD Unavailable Unavailable GUYVU MD Unavailable Unavailable GUYVU MD Unavailable Unavailable GUYVU MD Unavailable Unavailable GUYVU MD Unavailable Unavailable GUYVU MD Unavailable Unavailable GUYVU MD Unavailable Unavailable GUYVU MD Unavailable Unavailable GUYVU MD Unavailable Unavailable GUYVU MD Unavailable Unavailable GUYVU MD Unavailable Unavailable GUYVU MD Unavailable Unavailable GUYVU MD Unavailable Unavailable GUYVU MD Unavailable Unavailable GUYVU MD Unavailable Unavailable GUYVU MD Unavailable Unavailable GUY, VU EATON Unavailable Unavailable GUY, VU EATON Unavailable Unavailable GUY, VU EATON Unavailable Unavailable GUY, VU EATON Unavailable Unavailable GUY, VU EATON Unavailable Unavailable GUY, VU EATON Unavailable Unavailable GUY, VU EATON Unavailable Unavailable GUY, VU EATON Unavailable Unavailable GUY, VU EATON Unavailable Unavailable GUY, VU MD Unavailable Unavailable GUY, ZURITA MD Unavailable Unavailable GUY, VU MD Unavailable Unavailable GUY, VU MD Unavailable Unavailable GUY, VU MD Unavailable Unavailable GUY, VU MD Unavailable Unavailable GUY, VU MD Unavailable Unavailable GUY, VU MD Unavailable Unavailable GUY, VU MD Unavailable Unavailable GUY, ZURITA MD Unavailable Unavailable GUY, ZURITA MD Unavailable Unavailable GUY, VU MD Unavailable Unavailable GUY, VU MD Unavailable Unavailable Armani Freitas MD Unavailable Unavailable Armani Freitas MD Unavailable Unavailable Armani Freitas MD Unavailable Unavailable Armani Freitas MD Unavailable Unavailable Armani Fretias MD Unavailable Unavailable Armani Freitas MD Unavailable Unavailable Armani Freitas MD Unavailable Unavailable Armani Freitas MD Unavailable Unavailable Armani Freitas MD Unavailable Unavailable Armani Freitas MD Unavailable Unavailable Armani Freitas MD Unavailable Unavailable Armani Freitas MD Unavailable Unavailable Armani Freitas MD Unavailable Unavailable Armani Freitas MD Unavailable Unavailable Armani Freitas MD Unavailable Unavailable Armani Freitas MD Unavailable Unavailable Armani Freitas MD Unavailable Unavailable Armani Freitas MD Unavailable Unavailable Armani Freitas MD Unavailable Unavailable Armani Freitas MD Unavailable Unavailable Armani Freitas MD Unavailable Unavailable Armani Freitas MD Unavailable Unavailable Armani Freitas MD Unavailable Unavailable Armani Freitas MD Unavailable Unavailable Armani Freitas MD Unavailable Unavailable Armani Freitas MD Unavailable Unavailable Armani Freitas MD Unavailable Unavailable Armani Freitas MD Unavailable Unavailable Armani Freitas MD Unavailable Unavailable Armani Freitas MD Unavailable Unavailable Armani Freitas MD Unavailable Unavailable Armani Freitas MD Unavailable Unavailable Armani Freitas MD Unavailable Unavailable Armani Freitas MD Unavailable Unavailable Armani Freitas MD Unavailable Unavailable Armani Freitas MD Unavailable Unavailable Armani Freitas MD Unavailable Unavailable Armani Freitas MD Unavailable Unavailable Armani Freitas MD Unavailable Unavailable Armani Freitas MD Unavailable Unavailable Armani Freitas MD Unavailable Unavailable Armani Freitas MD Unavailable Unavailable Armani Freitas MD Unavailable Unavailable Armani Freitas MD Unavailable Unavailable Armani Freitas MD Unavailable Unavailable Armani Freitas MD Unavailable Unavailable Armani Freitas MD Unavailable Unavailable Armani Freitas MD Unavailable Unavailable Armani Freitas MD Unavailable Unavailable Armani Freitas MD Unavailable Unavailable Armani Freitas MD Unavailable Unavailable Armani Freitas MD Unavailable Unavailable Armani Freitas MD Unavailable Unavailable Armani Freitas MD Unavailable Unavailable Armani Freitas MD Unavailable Unavailable Armani Freitas MD Unavailable Unavailable Armani Freitas MD Unavailable Unavailable Armani Freitas MD Unavailable Unavailable Armani Freitas MD Unavailable Unavailable Armani Freitas MD Unavailable Unavailable Armani Freitas MD Unavailable Unavailable Armani Freitas MD Unavailable Unavailable Armani Freitas MD Unavailable Unavailable Armani Freitas MD Unavailable Unavailable Armani Freitas MD Unavailable Unavailable Armani Freitas MD Unavailable Unavailable Armani Freitas MD Unavailable Unavailable Armani Freitas MD Unavailable Unavailable Armani Freitas MD Unavailable Unavailable Armani Freitas MD Unavailable Unavailable Armani Freitas MD Unavailable Unavailable Armani Freitas MD Unavailable Unavailable Armani Freitas MD Unavailable Unavailable Armani Freitas MD Unavailable Unavailable CHROSTCARA BURLESON MD Unavailable Unavailable CHROSTCARA BURLESON MD Unavailable Unavailable CHROSTCARA BURLESON MD Unavailable Unavailable CHROSTCARA BURLESON MD Unavailable Unavailable CHROSTOWSKICARA MD Unavailable Unavailable CHROSTOWSKICARA MD Unavailable Unavailable CHROSTOWSKICARA MD Unavailable Unavailable CHROSTOWSKICARA MD Unavailable Unavailable CHROSTOWSKICARA MD Unavailable Unavailable CHROSTOWSKICARA MD Unavailable Unavailable CHROSTOWSKICARA MD Unavailable Unavailable CHROSTOWSKICARA MD Unavailable Unavailable CHROSTOWSKICARA MD Unavailable Unavailable CHROSTOWSKIJAKCARA MD Unavailable Unavailable CHROSTOWSKICARA MD Unavailable Unavailable CHROSTOWSKICARA MD Unavailable Unavailable CHROSTOWSKICARA MD Unavailable Unavailable CHROSTOWSKICARA MD Unavailable Unavailable CHROSTOWSKICARA MD Unavailable Unavailable CHROSTOWSKICARA MD Unavailable Unavailable CHROSTOWSKIJAKCARA MD Unavailable Unavailable CHROSTOWSKICARA MD Unavailable Unavailable CHROSTOWSKICARA MD Unavailable Unavailable CHROSTOWSKI, CARA MD Unavailable Unavailable CHROSTOWSKI, CARA MD Unavailable Unavailable CHROSTOWSKI, CARA MD Unavailable Unavailable CHROSTOWSKI, CARA MD Unavailable Unavailable CHROSTOWSKI, CARA MD Unavailable Unavailable CHROSTOWSKI, CARA MD Unavailable Unavailable CHROSTOWSKI, CARA MD Unavailable Unavailable CHROSTOWSKI, CARA MD Unavailable Unavailable CHROSTOWSKI, CARA MD Unavailable Unavailable CHROSTOWSKI, CARA MD Unavailable Unavailable CHROSTOWSKI, CARA MD Unavailable Unavailable CHROSTOWSKI, CARA MD Unavailable Unavailable CHROSTOWSKI, CARA MD Unavailable Unavailable CHROSTOWSKI, CARA MD Unavailable Unavailable CHROSTOWSKI, CARA MD Unavailable Unavailable CHROSTOWSKI, CARA MD Unavailable Unavailable SOJEWICZ, EDY PA Unavailable Unavailable SOJEWICZ, EDY PA Unavailable Unavailable SOJEWICZ, EDY PA Unavailable Unavailable SOJEWICZ, EDY PA Unavailable Unavailable SOJEWICZ, EDY PA Unavailable Unavailable SOJEWICZ, EDY PA Unavailable Unavailable SOJEWICZ, EDY PA Unavailable Unavailable SOJEWICZ, EDY PA Unavailable Unavailable SOJEWICZ, EDY PA Unavailable Unavailable SOJEWICZ, EDY PA Unavailable Unavailable SOJEWICZ, EDY PA Unavailable Unavailable SOJEWICZ, EDY PA Unavailable Unavailable SOJEWICZ, EDY PA Unavailable Unavailable SOJEWICZ, EDY PA Unavailable Unavailable SOJEWICZ, EDY PA Unavailable Unavailable SOJEWICZ, EDY PA Unavailable Unavailable SOJEWICZ, EDY PA Unavailable Unavailable SOJEWICZ, EDY PA Unavailable Unavailable SOJEWICZ, EDY PA Unavailable Unavailable SOJEWICZ, EDY PA Unavailable Unavailable SOJEWICZ, EDY PA Unavailable Unavailable SOJEWICZ, EDY PA Unavailable Unavailable SOJEWICZ, EDY PA Unavailable Unavailable SOJEWICZ, EDY PA Unavailable Unavailable SOJEWICZ, EDY PA Unavailable Unavailable SOJEWICZ, EDY PA Unavailable Unavailable SOJEWICZ, EDY PA Unavailable Unavailable SOJEWICZ, EDY PA Unavailable Unavailable SOJEWICZ, EDY PA Unavailable Unavailable SOJEWICZ, EDY PA Unavailable Unavailable SOJEWICZ, EDY PA Unavailable Unavailable SOJEWICZ, EDY PA Unavailable Unavailable SOJEWICZ, EDY PA Unavailable Unavailable SOJEWICZ, EDY PA Unavailable Unavailable SOJEWICZ, EDY PA Unavailable Unavailable SOJEWICZ, EDY PA Unavailable Unavailable SOJEWICZ, EDY PA Unavailable Unavailable SOJEWICZ, EDY PA Unavailable Unavailable EMELI, L ANDRY PA Unavailable Unavailable EMELI, L ANDRY PA Unavailable Unavailable EMELI, L ANDRY PA Unavailable Unavailable EMELI, L ANDRY PA Unavailable Unavailable EMELI, L ANDRY PA Unavailable Unavailable EMELI, L ANDRY PA Unavailable Unavailable EMELI, L ANDRY PA Unavailable Unavailable EMELI, L ANDRY PA Unavailable Unavailable EMELI, L ANDRY PA Unavailable Unavailable EMELI, L ANDRY PA Unavailable Unavailable EMELI, L ANDRY PA Unavailable Unavailable EMELI, L ANDRY PA Unavailable Unavailable EMELI, L ANDRY PA Unavailable Unavailable EMELI, L ANDRY PA Unavailable Unavailable EMELI, L ANDRY PA Unavailable Unavailable EMELI, L ANDRY PA Unavailable Unavailable EMELI, L ANDRY PA Unavailable Unavailable EMELI, L ANDRY PA Unavailable Unavailable EMELI, L ANDRY PA Unavailable Unavailable EMELI, L ANDRY PA Unavailable Unavailable EMELI, L ANDRY PA Unavailable Unavailable EMELI, L ANDRY PA Unavailable Unavailable Mino Vasquez MD Unavailable Unavailable Mino Vasquez MD Unavailable Unavailable Mino Vasquez MD Unavailable Unavailable Mino Vasquez MD Unavailable Unavailable Mino Vasquez MD Unavailable Unavailable Mino Vasquez MD Unavailable Unavailable Mino Vasquez MD Unavailable Unavailable Mino Vasquez MD Unavailable Unavailable Mino Vasquez MD Unavailable Unavailable Mino Vasquez MD Unavailable Unavailable Mino Vasquez MD Unavailable Unavailable Mino Vasquez MD Unavailable Unavailable Mino Vasquez MD Unavailable Unavailable Mino Vasquez MD Unavailable Unavailable Mino Vasquez MD Unavailable Unavailable Mino Vasquez MD Unavailable Unavailable Mino Vasquez MD Unavailable Unavailable Mino Vasquez MD Unavailable Unavailable Mino Vasquez MD Unavailable Unavailable Mino Vasquez MD Unavailable Unavailable Mino Vasquez MD Unavailable Unavailable Mino Vasquez MD Unavailable Unavailable Mino Vasquez MD Unavailable Unavailable Mino Vasquez MD Unavailable Unavailable Mino Vasquez MD Unavailable Unavailable Mino Vasquez MD Unavailable Unavailable Mino Vasquez MD Unavailable Unavailable Mino Vasquez MD Unavailable Unavailable Mino Vasquez MD Unavailable Unavailable Mino Vasquez MD Unavailable Unavailable Mino Vasquez MD Unavailable Unavailable Mino Vasquez MD Unavailable Unavailable Mino Vasquez MD Unavailable Unavailable Mino Vasquez MD Unavailable Unavailable Mino Vasquez MD Unavailable Unavailable Mino Vasquez MD Unavailable Unavailable Mino Vasquez MD Unavailable Unavailable Mino Vasquez MD Unavailable Unavailable Mino Vasquez MD Unavailable Unavailable Mino Vasquez MD Unavailable Unavailable Mino Vasquez MD Unavailable Unavailable Mino Vasquez MD Unavailable Unavailable Mino Vasquez MD Unavailable Unavailable Mino Vasquez MD Unavailable Unavailable Mino Vasquez MD Unavailable Unavailable Mino Vasquez MD Unavailable Unavailable Mino Vasquez MD Unavailable Unavailable Mino Vasquez MD Unavailable Unavailable Mino Vasquez MD Unavailable Unavailable Mino Vasquez MD Unavailable Unavailable Mino Vasquez MD Unavailable Unavailable Mino Vasquez MD Unavailable Unavailable Mino Vasquez MD Unavailable Unavailable Mino Vasquez MD Unavailable Unavailable Re-disclosure Warning The records that you are about to access may contain information from federally-assisted alcohol or drug abuse programs. If such information is present, then the following federally mandated warning applies: This information has been disclosed to you from records protected by federal confidentiality rules (42 CFR part 2). The federal rules prohibit you from making any further disclosure of this information unless further disclosure is expressly permitted by the written consent of the person to whom it pertains or as otherwise permitted by 42 CFR part 2. A general authorization for the release of medical or other information is NOT sufficient for this purpose. The Federal rules restrict any use of the information to criminally investigate or prosecute any alcohol or drug abuse patient.The records that you are about to access may contain highly sensitive health information, the redisclosure of which is protected by Article 27-F of the [facility] Public Health law. If you continue you may have access to information: Regarding HIV / AIDS; Provided by facilities licensed or operated by the [facility] Office of Mental Health; or Provided by the [facility] Office for People With Developmental Disabilities. If such information is present, then the following [facility] mandated warning applies: This information has been disclosed to you from confidential records which are protected by state law. State law prohibits you from making any further disclosure of this information without the specific written consent of the person to whom it pertains, or as otherwise permitted by law. Any unauthorized further disclosure in violation of state law may result in a fine or alf sentence or both. A general authorization for the release of medical or other information is NOT sufficient authorization for further disc losure. Allergies and Adverse Reactions Type Description Substance Reaction Status Data Source(s ) Propensity to adverse reactions Bee Sting Drug allergy Anaphylaxis Active eCW1 ([facility]) Propensity to adverse reactions Bee sting Propensity to ad verse reactions Anaphylaxis Active W1 ([facility]) Propensity to adverse reactions Bee sting Propensity to ad verse reactions Anaphylaxis Active eCW1 ([facility]) Propensity to adverse reactions Bee sting Propensity to ad verse reactions Anaphylaxis Active W ([facility]) Propensity to adverse reactions Bee sting Propensity to ad verse reactions Anaphylaxis Active W1 ([facility]) Propensity to adverse reactions WASP VENOM Wasp Venom Anaphylaxis Hig h Active [facility] High Propensity to adverse reactions HORNET VENOM Yellow hornet ve nom Anaphylaxis High Active [facility] High Propensity to adverse reactions BEE VENOM Honey bee venom Anaphy laxis High Active [facility] High Family History Family Member Name Family Member Gender Family Member Status Date o f Status Description Data Source(s) Unknown Male Problem MEDENT ([facility]) Encounters Encounter Providers Location Date Indications Data Source(s ) Outpatient Attender: EDY KENNEDY PAReferrer: Law Freitas MD 03/14/2021 12:13:24 PM EDT [facility] Recurring Patient Attender: George Iraheta MDReferrer: Law Lomeli 03/14/2021 08:12:18 AM EDT [facility] [place] [address] [facility] [address] 02/23/2021 12:00:00 AM EDT eCW1 ([facility]) Outpatient Attender: Laura Arnold/Seamus/Desmond/Sherri polk 02/02/2021 08:30:00 AM EDT [facility] ([facility]) [place] [address] [facility] [address] 01/24/2021 12:00:00 AM EDT eCW1 ([facility]) [place] [address] [facility] [address] 01/17/2021 12:00:00 AM EDT eCW1 ([facility]) Outpatient Attender: CARA DOBSON MD Main Office 01/09/2021 08:45:00 AM EDT [facility] ([facility]) [place] [address] [facility] [address] 12/09/2020 12:00:00 AM EDT eCW1 ([facility]) Outpatient [id number] 11/08/2020 02:17:43 PM EDT [facility] Outpatient Attender: VU TOVAR MD [email or web address] 12:00:00 AM EDT - 11/02/2020 11:59:16 AM EDT [facility] Out[place] [address] [facility] [address] 10/25/2020 12:00:00 AM EDT eCW1 ([facility]) [place] [address] [facility] [address] 08/25/2020 12:00:00 AM EDT eCW1 ([facility]) [place] [address] [facility] [address] 07/01/2020 12:00:00 AM EST eCW1 ([facility]) [place] [address] [facility] [address] 06/27/2020 12:00:00 AM EST eCW1 ([facility]) Outpatient Attender: EDY KENNEDY PAReferrer: Law Freitas MD 06/17/2020 06:53:16 AM EST [facility] Recurring Patient Attender: George JAYeferrer: Law Lomeli 06/14/2020 09:24:51 AM EST [facility] [place] [address] [facility] [address] 06/09/2020 12:00:00 AM EST eCW1 ([facility]) [place] [address] [facility] [address] 06/08/2020 12:00:00 AM EST eCW1 ([facility]) [place] [address] [facility] [address] 06/06/2020 12:00:00 AM EST eCW1 ([facility]) [place] [address] [facility] [address] 06/02/2020 12:00:00 AM EST eCW1 ([facility]) [place] [address] [facility] [address] 06/01/2020 12:00:00 AM EST eCW1 ([facility]) [place] [address] [facility] [address] 05/30/2020 12:00:00 AM EST eCW1 ([facility]) Outpatient Attender: George Iraheta MDReferrer: Law Freitas MD 04/29/2020 09:19:16 AM EST [facility] Outpatient Attender: EDY KENNEDY PAReferrer: Law Freitas MD 04/04/2020 02:08:12 PM EST [facility] Outpatient Attender: George Iraheta MDReferrer: Law Freitas MD 03/30/2020 08:25:16 AM EST [facility] Outpatient Attender: George Iraheta MDReferrer: Law Freitas MD 03/28/2020 11:01:06 AM EST [facility] Outpatient Attender: Tena Cartererrer: Law Freitas MD 03/28/2020 11:00:55 AM EST [facility] Outpatient Attender: Tena Cartererrer: Law Freitas MD 03/28/2020 11:00:44 AM EST [facility] Outpatient Attender: EDY Gentileer: Law Freitas MD 03/28/2020 11:00:33 AM EST [facility] Outpatient Referrer: George Iraheta MD [email or web address] 10:20:20 AM EDT - 03/05/2020 10:20:25 AM EDT [facility] Recurring Patient Attender: George Iraheta MDReferrer: Law Lomeli 03/04/2020 08:16:27 AM EDT [facility] [place] [address] [facility] [address] 03/03/2020 12:00:00 AM EDT eCW1 [facility] [facility]) Outpatient Attender: George Iraheta MDReferrer: George Iraheta MD [email or web address] 03/02/2020 12:00:00 AM EDT - 03/02/2020 12:45:32 PM EDT [facility] Outpatient Attender: George Iraheta MDReferrer: Law Freitas MD 02/29/2020 01:32:07 PM EDT [facility] Unknown [address] [facility] [address] 02/24/2020 12:00:00 AM EDT eCW1 ([facility]) Outpatient Attender: VU TOVAR MDReferrer: VU TOVAR MD SJP .[email or web address] 02/22/2020 11:05:33 AM EDT - 02/22/2020 11:36:44 AM EDT [facility] Inpatient Attender: George Iraheta MDAdm itter: George Iraheta MDReferrer: George Iraheta MD [id number] 02/19/2020 01:51:26 PM EDT - 03/11/2020 12:10:00 PM EDT [facility] Patient discharged. Outpatient Attender: VU TOVAR MD [email or web address] 0 12:00:00 AM EDT - 02/19/2020 08:49:32 AM EDT [facility] Unknown [address] [address] 02/19/2020 12:00:00 AM EDT eCW1 ([facility]) Recurring Patient Attender: George Iraheta MDReferrer: Law Lomeli 02/16/2020 07:20:08 AM EDT [facility] Emergency Attender: ANDRY ALEGRE 11/17/2019 09:48:00 AM EDT [facility] Outpatient Attender: George Iraheta MDReferrer: Law Freitas MD 08/21/2019 12:21:10 PM EDT [facility] Immunizations Vaccine Date Status Description Data Source(s) COVID-19 VACC, MRNA(PFIZER)/PF 02/24/2021 12:00:00 AM EDT completed [facility] COVID-19 VACCINE Pfizer 02/24/2021 12:00:00 AM EDT completed [facility] Vaccine Series Complete: YESThis Data wa s Submitted to [facility] Via [employer]. IIV3. This is one of two codes replacing CVX 15, which is being retired. 02/10/2021 09:40:00 AM EDT completed eCW1 ([facility]) COVID-19 dose #2 given elsewhere Unspecified 06/28/2020 11:2 1:00 AM EST completed eCW1 ([facility]) COVID-19 dose #2 given elsewhere Unspecified 06/28/2020 11:2 1:00 AM EST completed eCW1 ([facility]) COVID-19 dose #2 given elsewhere Unspecified 06/28/2020 11:2 1:00 AM EST completed eCW1 ([facility]) COVID-19 dose #2 given elsewhere Unspecified 06/28/2020 11:2 1:00 AM EST completed eCW1 ([facility]) COVID-19 dose #2 given elsewhere Unspecified 06/28/2020 11:2 1:00 AM EST completed eCW1 ([facility]) COVID-19 VACCINE Pfizer 06/28/2020 12:00:00 AM EST completed [facility] Vaccine Series Complete: YESThis Data wa s Submitted to [facility] Via [employer]. COVID-19 dose #1 given elsewhere Unspecified 06/07/2020 11:2 0:00 AM EST completed eCW1 ([facility]) COVID-19 dose #1 given elsewhere Unspecified 06/07/2020 11:2 0:00 AM EST completed eCW1 ([facility]) COVID-19 dose #1 given elsewhere Unspecified 06/07/2020 11:2 0:00 AM EST completed eCW1 ([facility]) COVID-19 dose #1 given elsewhere Unspecified 06/07/2020 11:2 0:00 AM EST completed eCW1 ([facility]) COVID-19 dose #1 given elsewhere Unspecified 06/07/2020 11:2 0:00 AM EST completed eCW1 ([facility]) COVID-19 VACCINE Pfizer 06/07/2020 12:00:00 AM EST completed [facility] Vaccine Series Complete: NOThis Data was Submitted to [facility] Via [employer]. IIV3. This is one of two codes replacing CVX 15, which is being retired. 03/03/2020 07:32:00 AM EDT completed eCW1 ([facility]) IIV3. This is one of two codes replacing CVX 15, which is being retired. 03/03/2020 07:32:00 AM EDT completed eCW1 ([facility]) IIV3. This is one of two codes replacing CVX 15, which is being retired. 03/03/2020 07:32:00 AM EDT completed eCW1 ([facility]) IIV3. This is one of two codes replacing CVX 15, which is being retired. 03/03/2020 07:32:00 AM EDT completed eCW1 ([facility]) IIV3. This is one of two codes replacing CVX 15, which is being retired. 03/03/2020 07:32:00 AM EDT completed eCW1 ([facility]) IIV3. This is one of two codes replacing CVX 15, which is being retired. 03/03/2020 07:32:00 AM EDT completed eCW1 ([facility]) IIV3. This is one of two codes replacing CVX 15, which is being retired. 03/03/2020 07:32:00 AM EDT completed eCW1 ([facility]) IIV3. This is one of two codes replacing CVX 15, which is being retired. 03/03/2020 07:32:00 AM EDT completed eCW1 ([facility]) IIV3. This is one of two codes replacing CVX 15, which is being retired. 03/03/2020 07:32:00 AM EDT completed eCW1 ([facility]) IIV3. This is one of two codes replacing CVX 15, which is being retired. 03/03/2020 07:32:00 AM EDT completed eCW1 ([facility]) IIV3. This is one of two codes replacing CVX 15, which is being retired. 03/03/2020 07:32:00 AM EDT completed eCW1 ([facility]) IIV3. This is one of two codes replacing CVX 15, which is being retired. 03/03/2020 07:32:00 AM EDT completed eCW1 ([facility]) IIV3. This is one of two codes replacing CVX 15, which is being retired. 03/03/2020 07:32:00 AM EDT completed eCW1 ([facility]) IIV3. This is one of two codes replacing CVX 15, which is being retired. 03/03/2020 07:32:00 AM EDT completed eCW1 ([facility]) IIV3. This is one of two codes replacing CVX 15, which is being retired. 03/03/2020 07:32:00 AM EDT completed eCW1 ([facility]) INFLUENZA VACCINE QUADRIVALENT (65 YR UP)/MF59 C.1/PF 02/16/2020 12:00:00 AM EDT completed [facility] Medications Medication Brand Name Start Date Product Form Dose Route Admi nistrative Instructions Pharmacy Instructions Status Indications Reaction Description Data Source(s) Allergy Injection 2 Or More 03/20/2021 12:00:00 AM EDT completed [facility] ([facility]) Medication administered onsite Allergy Injection 2 Or More 03/14/2021 12:00:00 AM EDT completed [facility] ([facility]) Medication administered onsite Allergy Injection 2 Or More 03/06/2021 12:00:00 AM EDT completed [facility] ([facility]) Medication administered onsite Allergy Injection 2 Or More 02/27/2021 12:00:00 AM EDT completed [facility] ([facility]) Medication administered onsite 15 mg 02/26/2021 12:00:00 AM EDT tablet 90 TAKE ONE TABLET BY MOUTH EVERY DAY TAKE ONE TABLET BY MOUTH EVERY DAY SOLD: 02/28/2021 [facility] Allergy Injection 2 Or More 02/20/2021 12:00:00 AM EDT completed [facility] ([facility]) Medication administered onsite Allergy Injection 2 Or More 02/13/2021 12:00:00 AM EDT completed [facility] ([facility]) Medication administered onsite 60 mcg (15 mcg x 4)/0.5 mL 02/10/2021 12:00:00 AM EDT syring e 0 INJECT IN LEFT ARM DIRECTED INJECT IN LEFT ARM DIRECTED SOLD: 02/10/2021 [facility] Citric Acid 75 MG/ML / Magnesium Oxide 2 1.9 MG/ML / picosulfate sodium 0.0625 MG/ML Oral Solution [Clenpiq] 10 mg-3.5 gram -12 gram/160 mL SOD PICOSULF/MAG OX/CITRIC AC 02/09/2021 12:00:00 AM EDT solution 320 F OLLOW PRE-PROCEDURE INSTRUCTIONS, START DAY BEFORE PROCEDURE FOLLOW PRE-PROCEDURE INSTRUCTIONS, START DAY BEFORE PROCEDURE SOLD: 02/10/2021 [facility] Bisacodyl 5 MG Delayed Release Oral Tablet [Dulcolax] Dulcol ax 02/09/2021 12:00:00 AM EDT active M EDENT ([facility], ) POLYETHYLENE GLYCOL 3350 105 MG/ML / Pot assium Chloride 0.21279 MEQ/ML / Sodium Bicarbonate 0.017 MEQ/ML / Sodium Chloride 0.0479 MEQ/ML Oral Solution [GaviLyte-N] Gavilyte-N With Flavor Pack 02/09/2021 12:00:00 AM EDT active MEDENT ([facility], ) Clenpiq Clenpiq 02/09/2021 12:00:00 AM EDT active MEDENT ([facility], ) 5 mg 02/09/2021 12:00:00 AM EDT tablet,delayed release (DR/EC) 4 TAKE 4 TABLETS BY MOUTH TOGETHER PER BOWEL PREP TAKE 4 TABLETS BY MOUTH TOGETHER PER BOWEL PREP SOLD: 02/10/2021 [facility] Allergy Injection 2 Or More 02/06/2021 12:00:00 AM EDT completed [facility] ([facility]) Medication administered onsite glimepiride 4 MG Oral Tablet GLIMEPIRIDE 01/24/2021 12:00:00 AM EDT t ablet 180 TAKE TWO TABLETS BY MOUTH EVERY MORNING WITH BREAKFAST OR FIRST MAIN MEAL OF THE DAY TAKE TWO TABLETS BY MOUTH EVERY MORNING WITH BREAKFAST OR FIRST MAIN MEAL OF THE DAY SOLD: 01/26/2021 [facility] [place]-3 Acid Ethyl Esters (SKILLED NURSING) 1000 MG Oral Capsule Pthzk-1-wawj Ethyl Esters 1 GM Ncurc-1-ziqg Ethyl Esters 1 GM 12/09/2020 12:00:00 AM EDT 2.0 {capsules} active Qhaob-7-lvrk Ethyl E sters 1 GM eCW1 ([facility]) [place]-3 Acid Ethyl Esters (SKILLED NURSING) 1000 MG Oral Capsule Ogqjg-9-rsmt Ethyl Esters 1 GM Bjawz-7-obdn Ethyl Esters 1 GM 12/09/2020 12:00:00 AM EDT 2.0 {capsules} active Qoahg-3-nhja Ethyl E sters 1 GM eCW1 ([facility]) [place]-3 Acid Ethyl Esters (SKILLED NURSING) 1000 MG Oral Capsule Ougwe-1-rydd Ethyl Esters 1 GM Wsass-6-avpi Ethyl Esters 1 GM 12/09/2020 12:00:00 AM EDT 2.0 {capsules} active Lbmjm-6-guja Ethyl E sters 1 GM eCW1 ([facility]) [place]-3 Acid Ethyl Esters (SKILLED NURSING) 1000 MG Oral Capsule Rhfzf-1-rfqv Ethyl Esters 1 GM Fxwhr-6-hmem Ethyl Esters 1 GM 12/09/2020 12:00:00 AM EDT 2.0 {capsules} active Pcylo-0-vvaa Ethyl E sters 1 GM eCW1 ([facility]) 15 mg 11/25/2020 12:00:00 AM EDT tablet 90 TAKE ONE TABLET BY MOUTH EVERY DAY TAKE ONE TABLET BY MOUTH EVERY DAY SOLD: 11/30/2020 [facility] apixaban 5 MG Oral Tablet Apixaban (ELIQUIS) 5 MG TABS tablet Apixaban (ELIQUIS) 5 MG TABS tablet 11/02/2020 12:00:00 AM EDT 5 mg Oral active Take 1 tablet (5 mg total) by mouth 2 (two) times a day [facility] 0.3 ML Epinephrine 1 MG/ML Auto-Injector [Epipen] EpiP en 2-Ravi 0.3 MG/0.3ML EpiPen 2-Ravi 0.3 MG/0.3ML 10/25/2020 12:00:00 AM EDT active EpiPen 2-Ravi 0.3 MG/0.3ML eCW1 ([facility]) 0.3 ML Epinephrine 1 MG/ML Auto-Injector [Epipen] EpiP en 2-Ravi 0.3 MG/0.3ML EpiPen 2-Ravi 0.3 MG/0.3ML 10/25/2020 12:00:00 AM EDT active EpiPen 2-Ravi 0.3 MG/0.3ML eCW1 ([facility]) 0.3 ML Epinephrine 1 MG/ML Auto-Injector [Epipen] EpiP en 2-Ravi 0.3 MG/0.3ML EpiPen 2-Ravi 0.3 MG/0.3ML 10/25/2020 12:00:00 AM EDT active EpiPen 2-Ravi 0.3 MG/0.3ML eCW1 ([facility]) 0.3 ML Epinephrine 1 MG/ML Auto-Injector [Epipen] EpiP en 2-Ravi 0.3 MG/0.3ML EpiPen 2-Ravi 0.3 MG/0.3ML 10/25/2020 12:00:00 AM EDT active EpiPen 2-Ravi 0.3 MG/0.3ML eCW1 ([facility]) 0.3 ML Epinephrine 1 MG/ML Auto-Injector [Epipen] EpiP en 2-Ravi 0.3 MG/0.3ML EpiPen 2-Ravi 0.3 MG/0.3ML 10/25/2020 12:00:00 AM EDT active EpiPen 2-Ravi 0.3 MG/0.3ML eCW1 ([facility]) 24 HR Metformin hydrochloride 1000 MG / sitagliptin 50 MG Extended Release Oral Tablet [Janumet] 50-1,000 mg SITAGLIPTIN PHOS/METFORMIN HCL 09/13/2020 12:00:00 AM EDT tablet, ER multiphase 24 hr 180 TAKE TWO TABLETS BY MOUTH EVERY DAY WITH EVENING MEAL TAKE TWO TABLETS BY MOUTH EVERY DAY WITH EVENING MEAL SOLD: 01/08/2021 [facility] 24 HR Metformin hydrochloride 1000 MG / sitagliptin 50 MG Extended Release Oral Tablet [Janumet] 50-1,000 mg SITAGLIPTIN PHOS/METFORMIN HCL 09/13/2020 12:00:00 AM EDT tablet, ER multiphase 24 hr 180 TAKE TWO TABLETS BY MOUTH EVERY DAY WITH EVENING MEAL TAKE TWO TABLETS BY MOUTH EVERY DAY WITH EVENING MEAL SOLD: 09/14/2020 [facility] 15 mg 08/25/2020 12:00:00 AM EDT tablet 90 TAKE ONE TABLET BY MOUTH EVERY DAY TAKE ONE TABLET BY MOUTH EVERY DAY SOLD: 08/27/2020 [facility] 100 mg 06/10/2020 12:00:00 AM EST tablet 30 TAKE ONE TABLET BY MOUTH EVERY DAY TAKE ONE TABLET BY MOUTH EVERY DAY SOLD: 06/13/2020 [facility] Allopurinol 100 MG Oral Tablet Allopurinol 100 MG 06/09/2020 12:00: 00 AM EST 1.0 {tablet} active Allopurinol 100 MG eCW1 ([facility]) Allopurinol 100 MG Oral Tablet Allopurinol 100 MG 06/09/2020 12:00: 00 AM EST 1.0 {tablet} active Allopurinol 100 MG eCW1 ([facility]) Allopurinol 100 MG Oral Tablet Allopurinol 100 MG 06/09/2020 12:00: 00 AM EST 1.0 {tablet} active Allopurinol 100 MG eCW1 ([facility]) Allopurinol 100 MG Oral Tablet Allopurinol 100 MG 06/09/2020 12:00: 00 AM EST 1.0 {tablet} active Allopurinol 100 MG eCW1 ([facility]) Allopurinol 100 MG Oral Tablet Allopurinol 100 MG 06/09/2020 12:00: 00 AM EST 1.0 {tablet} active Allopurinol 100 MG eCW1 ([facility]) Allopurinol 100 MG Oral Tablet Allopurinol 100 MG 06/09/2020 12:00: 00 AM EST 1.0 {tablet} active Allopurinol 100 MG eCW1 ([facility]) Allopurinol 100 MG Oral Tablet Allopurinol 100 MG 06/09/2020 12:00: 00 AM EST 1.0 {tablet} active Allopurinol 100 MG eCW1 ([facility]) Allopurinol 100 MG Oral Tablet Allopurinol 100 MG 06/09/2020 12:00: 00 AM EST 1.0 {tablet} active Allopurinol 100 MG eCW1 ([facility]) Allopurinol 100 MG Oral Tablet Allopurinol 100 MG 06/09/2020 12:00: 00 AM EST 1.0 {tablet} active Allopurinol 100 MG eCW1 ([facility]) Allopurinol 100 MG Oral Tablet Allopurinol 100 MG 06/09/2020 12:00: 00 AM EST 1.0 {tablet} active Allopurinol 100 MG eCW1 ([facility]) 15 mg 06/07/2020 12:00:00 AM EST tablet 90 TAKE ONE TABLET BY MOUTH EVERY DAY TAKE ONE TABLET BY MOUTH EVERY DAY SOLD: 06/07/2020 [facility] Allopurinol 100 MG Oral Tablet [Zyloprim] Zyloprim 100 MG Zy loprim 100 MG 06/01/2020 12:00:00 AM EST 1.0 {tablet} active Zyloprim 100 MG eCW1 ([facility]) Allopurinol 100 MG Oral Tablet [Zyloprim] Zyloprim 100 MG Zy loprim 100 MG 06/01/2020 12:00:00 AM EST 1.0 {tablet} active Zyloprim 100 MG eCW1 ([facility]) Allopurinol 100 MG Oral Tablet [Zyloprim] Zyloprim 100 MG Zy loprim 100 MG 06/01/2020 12:00:00 AM EST 1.0 {tablet} active Zyloprim 100 MG eCW1 ([facility]) Allopurinol 100 MG Oral Tablet [Zyloprim] Zyloprim 100 MG Zy loprim 100 MG 06/01/2020 12:00:00 AM EST 1.0 {tablet} active Zyloprim 100 MG eCW1 ([facility]) Allopurinol 100 MG Oral Tablet [Zyloprim] Zyloprim 100 MG Zy loprim 100 MG 06/01/2020 12:00:00 AM EST 1.0 {tablet} active Zyloprim 100 MG eCW1 ([facility]) Allopurinol 100 MG Oral Tablet [Zyloprim] Zyloprim 100 MG Zy loprim 100 MG 06/01/2020 12:00:00 AM EST 1.0 {tablet} active Zyloprim 100 MG eCW1 ([facility]) Allopurinol 100 MG Oral Tablet [Zyloprim] Zyloprim 100 MG Zy loprim 100 MG 06/01/2020 12:00:00 AM EST 1.0 {tablet} active Zyloprim 100 MG eCW1 ([facility]) Allopurinol 100 MG Oral Tablet [Zyloprim] Zyloprim 100 MG Zy loprim 100 MG 06/01/2020 12:00:00 AM EST 1.0 {tablet} active Zyloprim 100 MG eCW1 ([facility]) Allopurinol 100 MG Oral Tablet [Zyloprim] Zyloprim 100 MG Zy loprim 100 MG 06/01/2020 12:00:00 AM EST 1.0 {tablet} active Zyloprim 100 MG eCW1 ([facility]) Allopurinol 100 MG Oral Tablet [Zyloprim] Zyloprim 100 MG Zy loprim 100 MG 06/01/2020 12:00:00 AM EST 1.0 {tablet} active Zyloprim 100 MG eCW1 ([facility]) Allopurinol 100 MG Oral Tablet [Zyloprim] Zyloprim 100 MG Zy loprim 100 MG 06/01/2020 12:00:00 AM EST 1.0 {tablet} active Zyloprim 100 MG eCW1 ([facility]) Allopurinol 100 MG Oral Tablet [Zyloprim] Zyloprim 100 MG Zy loprim 100 MG 06/01/2020 12:00:00 AM EST 1.0 {tablet} active Zyloprim 100 MG eCW1 ([facility]) Allopurinol 100 MG Oral Tablet [Zyloprim] Zyloprim 100 MG Zy loprim 100 MG 06/01/2020 12:00:00 AM EST 1.0 {tablet} active Zyloprim 100 MG eCW1 ([facility]) 8.6-50 mg 04/04/2020 12:00:00 AM EST tablet 60 TAKE TWO TABLETS BY MOUTH ONCE OR TWICE DAILY TO PREVENT CONSTIPATION TAKE TWO TABLETS BY MOUTH ONCE OR TWICE DAILY TO PREVENT CONSTIPATION SOLD: 04/07/2020 [facility] 5 mg 04/01/2020 12:00:00 AM EST tablet 60 TAKE ONE TABLET BY MOUTH EVERY 4 TO 6 HOURS NEEDED FOR PAIN MAX=6TABS/DAY TAKE ONE TABLET BY MOUTH EVERY 4 TO 6 HOURS NEEDED FOR PAIN MAX=6TABS/DAY SOLD: 04/01/2020 [facility] Cephalexin 500 MG Oral Capsule CEPHALEXIN 03/28/2020 12:00:00 AM EST capsule 14 TAKE 1 CAPSULE BY MOUTH EVERY 12 HOURS FOR 7 DAYS TAKE 1 CAPSULE BY MOUTH EVERY 12 HOURS FOR 7 DAYS SOLD: 03/29/2020 [facility] 5 mg 03/18/2020 12:00:00 AM EDT tablet 40 TAKE ONE TABLET BY MOUTH EVERY 4 HOURS NEEDED FOR PAIN MAX=6TABS/DAY TAKE ONE TABLET BY MOUTH EVERY 4 HOURS A S NEEDED FOR PAIN MAX=6TABS/DAY SOLD: 03/19/2020 [facility] Bisacodyl 10 MG Rectal Suppository bisacodyl (DULCOLAX ) suppository 10 mg bisacodyl (DULCOLAX) suppository 10 mg 03/12/2020 06:00:00 AM EDT 10 mg Rectal active 10 mg, Rectal, Once, 03/12/20 at 0600, For 1 dose, Post- op
Hold for BM
[facility] Medication administered onsite ezetimibe 10 MG / Simvastatin 20 MG Oral Tablet ezetimibe-simvastatin (VYTORIN) 10-20 MG per tablet 1 tablet ezetimibe-simvastatin (VYTORIN) 10-20 MG per tablet 1 tablet 03/11/2020 09:00:00 PM EDT 1 {tbl} Oral active 1 tablet, Oral, 3 times weekly (Once per day on Sat), First dose on Sat03/11/20 at 2100, Post-op
Saturday, Saturday and Saturday
[facility] Medication administered onsite 24 HR metoprolol succinate 50 MG Extende d Release Oral Tablet metoprolol succinate (TOPROL-XL) 24 hr tablet 50 mg metoprolol succinate (TOPROL-XL) 24 hr tablet 50 mg 03/11/2020 09:00:00 AM EDT 50 mg Oral activ e 50 mg, Oral, Daily, First dose on Sat03/11/20 at 0900, Post-op [facility] Medication administered onsite Magnesium Hydroxide 80 MG/ML Oral Suspen jeovanny magnesium hydroxide (MILK OF MAGNESIA) 400 MG/5ML suspension 30 mL magnesium hydroxide (MILK OF MAGNESIA) 4 00 MG/5ML suspension 30 mL 03/11/2020 09:00:00 AM EDT 30 mL Oral active 30 mL, Oral, Daily, First dose on Sat03/11/20 at 0900, Post-op
hold for loose stools
[facility] Medication administered onsite 0.3 ML Enoxaparin sodium 100 MG/ML Prefi lled Syringe enoxaparin (LOVENOX) syringe 30 mg enoxaparin (LOVENOX) syringe 30 mg 03/11/2020 09:00:00 AM EDT 30 mg Subcutaneous active 30 mg, Subcutaneous, Every 12 hours (scheduled), First dose on Sat03/11/20 at 0900, Post-op
If platelet count is less than 100,000 or hematocrit is less than 25, or if there is a 5 point decrease in hematocrit, do not give the dose and call physician/designee.
[facility] Medication administered onsite 8.6 mg 03/11/2020 12:00:00 AM EDT tablet 60 TAKE TWO TABLETS BY MOUTH EVERY DAY WHILE ON PAIN MEDICATION TAKE TWO TABLETS BY MOUTH EVERY DAY WHIL E ON PAIN MEDICATION SOLD: 03/11/2020 [facility] sennosides, [facility]URSING 8.6 MG Oral Tablet senna (SENOKOT) 8.6 MG TABS senna (SENOKOT) 8.6 MG TABS 03/11/2020 12:00:00 AM EDT 17.2 mg Oral activ e Take 2 tablets (17.2 mg total) by mouth daily [facility] apixaban 5 MG Oral Tablet Apixaban (ELIQUIS) 5 MG TABS tablet Apixaban (ELIQUIS) 5 MG TABS tablet 03/11/2020 12:00:00 AM EDT 2.5 mg Oral aborted Take 0.5 tablets (2.5 mg total) by mouth 2 (two) times a day Continue for 2 weeks, then restart home dosing thereafter [facility] Oxycodone Hydrochloride 5 MG Oral Tablet oxyCODONE (ROXICODONE) 5 MG immediate release tablet oxyCODONE (ROXICODONE) 5 MG immediate release tablet 1 12:00:00 AM EDT Oral active Take 0.5-1 tablets (2.5-5 mg total) by mouth every 4 (four) hours as needed for pain Max Daily Amount: 6 tablets [facility] 5 mg 03/11/2020 12:00:00 AM EDT tablet 30 TAKE 1/2 TO 1 TABLET BY MOUTH EVERY 4 HOURS NEEDED FOR PAIN MAX=6TABS/DAY TAKE 1/2 TO 1 TABLET BY MOUTH EVERY 4 HOURS NEEDED FOR PAIN MAX=6TABS/DAY SOLD: 03/11/2020 [facility] 24 HR metoprolol succinate 25 MG Extende d Release Oral Tablet metoprolol succinate (TOPROL-XL) 24 hr tablet 25 mg metoprolol succinate (TOPROL-XL) 24 hr tablet 25 mg 03/10/2020 09:00:00 PM EDT 25 mg Oral activ e 25 mg, Oral, Nightly, First dose on [place] 03/10/20 at 2100, Post-op [facility] Medication administered onsite Allopurinol 100 MG Oral Tablet allopurinol (ZYLOPRIM) tablet 100 mg allopurinol (ZYLOPRIM) tablet 100 mg 03/10/2020 09:00:00 PM EDT 100 mg Oral active 100 mg, Oral, Nightly, First dose on [place] 03/10/20 at 2 100, Post-op [facility] Medication administered onsite Docusate Sodium 50 MG / sennosides, SKILLED NURSING 8.6 MG Oral Tablet senna-docusate (PERICOLACE) 8.6-50 MG 2 tablet senna-docusate (PERICOLACE) 8.6-50 MG 2 tablet 03/10/2020 09:00:00 PM EDT 2 {tbl} Oral active 2 tablet, Oral, Nightly, First dose on [place] 03/10/20 at 2100, Post-op
hold for loose stools
[facility] Medication administered onsite Acetaminophen 500 MG Oral Tablet acetaminophen (TYLENO L) tablet 1,000 mg acetaminophen (TYLENOL) tablet 1,000 mg 03/10/2020 06:00:00 PM EDT 1000 mg Oral active 1,000 mg, Oral , Every 6 hours (scheduled), First dose on Sat03/10/20 at 1800, Post-op [facility] Medication administered onsite cefazolin (ANCEF) injection 2 g 03/10/2020 05:00:00 PM EDT 2 g Intravenous completed Perioperative Pharmacoprophylaxis 2 g, Intravenous, Administer over 6 Minutes, Every 8 hours (relative), First dose on Sat03/10/20 at 1700, For 3 doses, Post-op
Start 4 hours after pre-op dose, then every 8 hours x 2 doses. Time pre-op dose hun RN may administer IV push or infuse this medication through syringe adapter set ref [phone]. Flush line after use
[facility] Perioperative Pharmacoprophylaxis Medication administered onsite 1 ML Ketorolac Tromethamine 15 MG/ML Car tridge ketorolac (TORADOL) injection 15 mg ketorolac (TORADOL) injection 15 mg 03/10/2020 05:00:00 PM EDT 15 mg Intravenous completed 15 mg, Intrav enous, Once, [place] 03/10/20 at 1700, For [address] Iraheta
[facility] Medication administered onsite Insulin Lispro 100 UNT/ML Injectable Kerry ution insulin lispro (HumaLOG) injection 1-6 Units insulin lispro (HumaLOG) injection 1-6 Units 0 05:00:00 PM EDT Subcutaneous active 1-6 Units, Subcutaneous, MEALSS, First dose on Sat03/10/20 at 1700, Post-op
Frail 3 units Nutritional and Correction Insulin Scale Blood Glucose (mg/dl) <70 start hypoglycemia protocol Glucose &nbsp ; Eats >=50% Eats &l t;50% Eats Nothing (mg/dl) of meal of meal or NPO &nb sp; 70- 120 2 units 1 units 0 units 121-170 & nbsp; 3 units 2 units 0 units 171-220 &nbsp ; 4 units 2 units 1 units 221-270 &am p;nbsp; 4 units 3 units 1 units 271-320 &n bsp; 5 units 3 units 2 units 321- 370 5 units 4 units 2 units 371- 420 6 units 4 units 3 units >420 call MD 6 units 5 units 3 units Test glucose within 30 minutes of insulin administration. Administer insulin within 15 minutes (before or after) of t he patient starting to eat. For patients that are NPO, use the NPO (correction) scale to cover POC glucose at 08:00, 12:00, 17:00.
[facility] Medication administered onsite normal saline flush 0.9 % injection 3 mL [id number] 03/10/2020 03:00:00 PM EDT 3 mL Intravenous active 3 mL , Intravenous, Every 8 hours (scheduled), First dose on [place] 03/10/20 at 1500, Post-op
flush per protocol, D/C Main IV fluid if appropriate
[facility] Medication administered onsite sodium chloride 0.9% (NS) infusion 4056-1032-17 03/10/2020 03:00:00 P M EDT Intravenous active at 100 mL/hr, Intravenous, Continuous, Starting [place] 03/10/20 at 1500, Post-op [facility] Medication administered onsite Oxycodone Hydrochloride 5 MG Oral Tablet oxyCODONE (ROXICODONE) immediate release tablet 5 mg oxyCODONE (ROXICODONE) immediate release tablet 5 mg 03/10/2020 02:31:23 PM EDT 5 mg Oral active 5 mg, Oral, Every 4 hours PRN, severe pain (7-10), Starting [place] 03/10/20 at 1431, For 7 days, Post-op [facility] Medication administered onsite oxyCODONE (ROXICODONE) immediate release split tablet 2.5 mg [id number] 03/10/2020 02:31:23 PM EDT 2.5 mg Oral active 2.5 mg, Oral, 2 times daily PRN, for pre-emptive pain control prior to PT, Starting [place] 03/10/20 at 1431, For 7 days, Post-op
Administer 1 hour prior to PT
[facility] Medication administered onsite oxyCODONE (ROXICODONE) immediate release split tablet 2.5 mg [id number] 03/10/2020 02:31:23 PM EDT 2.5 mg Oral active 2.5 mg, Oral, Every 4 hours PRN, moderate pain (4-6), Starting [place] 03/10/20 at 1431, For 7 days, Post-op [facility] Medication administered onsite Mineral Oil 1000 MG/ML Enema mineral oil enema 1 enema mineral oil enema 1 enema 03/10/2020 02:31:22 PM EDT 1 {enema} Rectal active 1 enema, Rectal, Daily PRN, constipation, unrelieved by MOM, Starting [place] 03/10/20 at 1431, Post- op
hold for loose stools
[facility] Medication administered onsite ondansetron (ZOFRAN) injection 4 mg [id number] 03/10/2020 02:31:2 2 PM EDT 4 mg Intravenous active 4 mg, In travenous, Every 4 hours PRN, nausea, vomiting, for N/V not controlled by Reglan and unable to take PO ondansetron, Starting [place] 03/10/20 at 1431, Post-op [facility] Medication administered onsite Ondansetron 4 MG Disintegrating Oral Tab let ondansetron (ZOFRAN-ODT) disintegrating tablet 4 mg ondansetron (ZOFRAN-ODT) disintegrating tablet 4 mg 03/10/2020 02:31:22 PM EDT 4 mg Oral active 4 mg, Oral, Every 4 hours PRN, nausea, vomiting, for N/V not relieved by metoclopramide, Starting [place] 03/10/20 at 1431, Post-op [facility] Medication administered onsite metaxalone 800 MG Oral Tablet metaxalone (SKELAXIN) ta blet 800 mg metaxalone (SKELAXIN) tablet 800 mg 03/10/2020 02:31:22 PM EDT 800 mg Oral active 800 mg, Oral, Every 8 hours PRN, muscle spasms, Starting [place] 03/10/20 at 1431, Post-op
First line for all patients
[facility] Medication administered onsite 2 ML Metoclopramide 5 MG/ML Prefilled Sy ringe metoclopramide (REGLAN) injection 10 mg metoclopramide (REGLAN) injection 10 mg 03/10/2020 02:31:22 PM E DT 10 mg Intravenous active 10 mg, I ntravenous, Every 6 hours PRN, for N/V if unable to take PO metoclopramide, Starting [place] 03/10/20 at 1431, Post-op [facility] Medication administered onsite Metoclopramide 10 MG Oral Tablet metoclopramide (ANTONIO N) tablet 10 mg metoclopramide (REGLAN) tablet 10 mg 03/10/2020 02:31:22 PM EDT 10 mg Oral active 10 mg, Oral, Harini ry 6 hours PRN, nausea, Starting [place] 03/10/20 at 1431, Post-op [facility] Medication administered onsite Aluminum Hydroxide 40 MG/ML / Magnesium Hydroxide 40 MG/ML / Simethicone 4 MG/ML Oral Suspension alum & mag hydroxide-simeth 200-200-20 MG/5ML suspension 30 mL alum & mag hydroxide-simeth 200-200-20 MG/5ML suspension 30 mL 03/10/2020 02:31:22 PM EDT 30 mL Oral active 30 mL, Oral, Every 4 hours PRN, indigestion, unrelieved by Tums, Starting [place] 03/10/20 at 1431, Post-op [facility] Medication administered onsite Calcium Carbonate 500 MG Chewable Tablet calcium carbonate (TUMS) chewable tablet 500-1,000 mg calcium carbonate (TUMS) chewable tablet 500-1,000 mg 03/10/2020 02:31:22 PM EDT Oral active 500-1,000 mg, Oral, Every 4 hours PRN, indigestion, heartburn, indigestion, Starting [place] 03/10/20 at 1431, Post-op [facility] Medication administered onsite fentaNYL Citrate (PF) (SUBLIMAZE) injection 25 mcg [id number] 03/10/2020 02:31:22 PM EDT 25 ug Intravenous active 25 mcg, Intravenous, Every 3 hours PRN, for severe breakthrough pain (7-10) if oral opioid ineffective, Starting [place] 03/10/20 at 1431, For 7 days, Post-op [facility] Medication administered onsite Magnesium Chloride 0.92447 MEQ/ML / Pota ssium Chloride 0.0497 MEQ/ML / Sodium Acetate 0.0163 MEQ/ML / Sodium Chloride 0.0899 MEQ/ML / Sodium gluconate 5.02 MG/ML Injectable Solution [Normosol-R] electrolyte-R (NORMOSOL-R/PLASMALYTE-R) solution electrolyte-R (NORMOSOL-R/PLASMALYTE-R) solution 03/10 11:00:00 AM EDT Intravenous aborted at 1 00 mL/hr, Intravenous, Continuous, Starting [place] 03/10/20 at 1100, Pre-op [facility] Medication administered onsite Tranexamic Acid 650 MG Oral Tablet tranexamic Acid tab let 1,950 mg tranexamic Acid tablet 1,950 mg 03/10/2020 10:00:00 AM EDT 1950 mg Oral completed 1,950 mg, Oral, call center consultant, [place] 03/10/20 at 1000, For 1 d ose, Pre-op [facility] Medication administered onsite Acetaminophen 500 MG Oral Tablet acetaminophen (TYLENO L) tablet 1,000 mg acetaminophen (TYLENOL) tablet 1,000 mg 03/10/2020 10:00:00 AM EDT 1000 mg Oral completed 1,000 mg, Oral , call center consultant, [place] 03/10/20 at 1000, For 1 dose, Pre-op
To be administered just prior to to transport to operating room
[facility] Medication administered onsite chlorhexidine gluconate 1.2 MG/ML Mouthw aliya chlorhexidine (PERIDEX) 0.12 % oral solution 15 mL chlorhexidine (PERIDEX) 0.12 % oral solution 15 mL 10:00:00 AM EDT 15 mL Mouth/Throat completed 15 mL, Mouth/Throat, call center consultant, [place] 03/10/20 at 1000, For 1 dose, Pre-op
Swish for 30 seconds and spit in pre-induction unit
[facility] Medication administered onsite 2 ML Metoclopramide 5 MG/ML Prefilled Sy ringe metoclopramide (REGLAN) injection 10 mg metoclopramide (REGLAN) injection 10 mg 03/10/2020 10:00:00 AM E DT 10 mg Intravenous completed 10 mg, I ntravenous, call center consultant, [place] 03/10/20 at 1000, For 1 dose, Pre-op
To be administered just prior to to transport to operating room
[facility] Medication administered onsite ondansetron (ZOFRAN) injection 4 mg [id number] 03/10/2020 10:00:0 0 AM EDT 4 mg Intravenous completed 4 mg, In travenous, call center consultant, [place] 03/10/20 at 1000, For 1 dose, Pre-op
To be administered just prior to to transport to operating room
[facility] Medication administered onsite Amlodipine 10 MG Oral Tablet AmLODIPine Besylate 10 MG AmLODIPine Besylate 10 MG 03/03/2020 12:00:00 AM EDT 1.0 {tablet} activ e AmLODIPine Besylate 10 MG eCW1 ([facility]) Amlodipine 10 MG Oral Tablet amLODIPine Besylate 10 MG amLODIPine Besylate 10 MG 03/03/2020 12:00:00 AM EDT 1.0 {tablet} activ e amLODIPine Besylate 10 MG eCW1 ([facility]) Amlodipine 10 MG Oral Tablet AmLODIPine Besylate 10 MG AmLODIPine Besylate 10 MG 03/03/2020 12:00:00 AM EDT 1.0 {tablet} activ e AmLODIPine Besylate 10 MG eCW1 ([facility]) Amlodipine 10 MG Oral Tablet AmLODIPine Besylate 10 MG AmLODIPine Besylate 10 MG 03/03/2020 12:00:00 AM EDT 1.0 {tablet} activ e AmLODIPine Besylate 10 MG eCW1 ([facility]) Amlodipine 10 MG Oral Tablet amLODIPine Besylate 10 MG amLODIPine Besylate 10 MG 03/03/2020 12:00:00 AM EDT 1.0 {tablet} activ e amLODIPine Besylate 10 MG eCW1 ([facility]) Amlodipine 10 MG Oral Tablet AmLODIPine Besylate 10 MG AmLODIPine Besylate 10 MG 03/03/2020 12:00:00 AM EDT 1.0 {tablet} activ e AmLODIPine Besylate 10 MG eCW1 ([facility]) Amlodipine 10 MG Oral Tablet amLODIPine Besylate 10 MG amLODIPine Besylate 10 MG 03/03/2020 12:00:00 AM EDT 1.0 {tablet} activ e amLODIPine Besylate 10 MG eCW1 ([facility]) Amlodipine 10 MG Oral Tablet amLODIPine Besylate 10 MG amLODIPine Besylate 10 MG 03/03/2020 12:00:00 AM EDT 1.0 {tablet} activ e amLODIPine Besylate 10 MG eCW1 ([facility]) Amlodipine 10 MG Oral Tablet AmLODIPine Besylate 10 MG AmLODIPine Besylate 10 MG 03/03/2020 12:00:00 AM EDT 1.0 {tablet} activ e AmLODIPine Besylate 10 MG eCW1 ([facility]) 10 mg 03/03/2020 12:00:00 AM EDT tablet 1 TAKE 1 TABLET BY MOUTH FOR 1 DAY INSTEAD OF AMLODIPINE/BENAZEPRIL BEFORE SURGERY TAKE 1 TABLET BY MOUTH FOR 1 DAY INSTEAD OF AMLODIPINE/BENAZEPRIL BEFORE SURGERY SOLD: 03/04/2020 [facility] Amlodipine 10 MG Oral Tablet AmLODIPine Besylate 10 MG AmLODIPine Besylate 10 MG 03/03/2020 12:00:00 AM EDT 1.0 {tablet} activ e AmLODIPine Besylate 10 MG eCW1 ([facility]) Amlodipine 10 MG Oral Tablet AmLODIPine Besylate 10 MG AmLODIPine Besylate 10 MG 03/03/2020 12:00:00 AM EDT 1.0 {tablet} activ e AmLODIPine Besylate 10 MG eCW1 ([facility]) Amlodipine 10 MG Oral Tablet amLODIPine Besylate 10 MG amLODIPine Besylate 10 MG 03/03/2020 12:00:00 AM EDT 1.0 {tablet} activ e amLODIPine Besylate 10 MG eCW1 ([facility]) Amlodipine 10 MG Oral Tablet AmLODIPine Besylate 10 MG AmLODIPine Besylate 10 MG 03/03/2020 12:00:00 AM EDT 1.0 {tablet} activ e AmLODIPine Besylate 10 MG eCW1 ([facility]) Amlodipine 10 MG Oral Tablet AmLODIPine Besylate 10 MG AmLODIPine Besylate 10 MG 03/03/2020 12:00:00 AM EDT 1.0 {tablet} activ e AmLODIPine Besylate 10 MG eCW1 ([facility]) Amlodipine 10 MG Oral Tablet AmLODIPine Besylate 10 MG AmLODIPine Besylate 10 MG 03/03/2020 12:00:00 AM EDT 1.0 {tablet} activ e AmLODIPine Besylate 10 MG eCW1 ([facility]) Aspirin 81 MG Delayed Release Oral Tablet aspirin EC 8 1 MG EC tablet aspirin EC 81 MG EC tablet 02/20/2020 12:00:00 AM EDT 81 mg Oral ab orted Take 1 tablet (81 mg total) by mouth daily [facility] 100 mg 02/17/2020 12:00:00 AM EDT tablet 90 TAKE ONE TABLET BY MOUTH DAILY TAKE ONE TABLET BY MOUTH DAILY SOLD: 02/19/2020 [facility] 10-40 mg 02/17/2020 12:00:00 AM EDT capsule 90 TAKE ONE CAPSULE BY MOUTH DAILY TAKE ONE CAPSULE BY MOUTH DAILY SOLD: 02/19/2020 [facility] apixaban 5 MG Oral Tablet [Eliquis] ELIQUIS 5 MG TABS tablet ELIQUIS 5 MG TABS tablet 01/31/2020 12:00:00 AM EDT aborted TAKE 1 TABLET BY MOUTH TWICE A DAY [facility] 50-1,000 mg 12/13/2019 12:00:00 AM EDT tablet, ER multiphase 24 hr 180 TAKE 2 TABLETS BY MOUTH WITH EVENING MEAL ONCE A DAY TAKE 2 TABLETS BY MOUTH WITH EVENING MEAL ONCE A DAY SOLD: 06/29/2020 [facility] 50-1,000 mg 12/13/2019 12:00:00 AM EDT tablet, ER multiphase 24 hr 180 TAKE 2 TABLETS BY MOUTH WITH EVENING MEAL ONCE A DAY TAKE 2 TABLETS BY MOUTH WITH EVENING MEAL ONCE A DAY SOLD: 04/07/2020 [facility] STEGLATRO 15 MG TABS [id number] 11/18/2019 12:00:00 AM EDT 1 { tbl} Oral aborted Take 1 tablet by mouth daily [facility] 15 mg 11/18/2019 12:00:00 AM EDT tablet 90 TAKE ONE TABLET BY MOUTH EVERY DAY TAKE ONE TABLET BY MOUTH EVERY DAY SOLD: 02/23/2020 [facility] 24 HR metoprolol succinate 25 MG Extende d Release Oral Tablet metoprolol succinate (TOPROL-XL) 25 MG 24 hr tablet metoprolol succinate (TOPROL-XL) 25 MG 24 hr tablet 25 mg Oral aborted Take 25 mg by mouth nightly [facility] apixaban 5 MG Oral Tablet Apixaban (ELIQUIS) 5 MG TABS tablet Apixaban (ELIQUIS) 5 MG TABS tablet 5 mg Oral aborted Take 5 mg by mouth 2 (two) times a day [facility] Simvastatin 20 MG Oral Tablet simvastatin (ZOCOR) 20 M G tablet simvastatin (ZOCOR) 20 MG tablet aborted SIM VASTATIN 20 MG TABS [facility] Ascorbic Acid 60 MG / Beta Carotene 5000 UNT / Copper Sulfate 40 MG / dl-alpha tocopheryl acetate 30 UNT / Sodium Selenite 0.04 MG / Zinc Oxide 40 MG Oral Tablet Multiple Vitamins-Minerals (OPTIVITE P.M.T.) TABS Multiple Vitamins- Minerals (OPTIVITE P.M.T.) TABS aborted OPTIVITE P.M.T. TABS [facility] ezetimibe 10 MG Oral Tablet ezetimibe (ZETIA) 10 MG ta blet ezetimibe (ZETIA) 10 MG tablet 10 mg Oral aborted Take 10 mg by mouth [facility] ezetimibe 10 MG Oral Tablet ezetimibe (ZETIA) 10 MG ta blet ezetimibe (ZETIA) 10 MG tablet 10 mg Oral aborted Take 1 0 mg by mouth 3 (three) times a week [facility] Simvastatin 20 MG Oral Tablet simvastatin (ZOCOR) 20 M G tablet simvastatin (ZOCOR) 20 MG tablet 20 mg Oral aborted Kt e 20 mg by mouth [facility] Insurance Providers Payer name Policy type / Coverage type Policy ID Covered alliance party ID Covered alliance party's relationship to justice Policy Justice Plan Information [employer] (pr) [facility] Part B [id number] Self [id number] [employer] (pr) [facility] Part B [id number] Self [id number] [employer] (pr) Commercial [id number] Self [employer] (pr) [facility] Part B [id number] Self [id number] [employer] (pr) [facility] Part B [id number] Self [id number] [employer] (pr) [facility] Part B [id number] Self [id number] [employer] (pr) [facility] Part B [id number] Self [id number] MEDICARE [id number] [place] [id number] MEDICARE [id number] [place] [id number] K21 UHC UNITED MEDICARE COMPLETE G [id number] Self [id number] Medicare [facility] Medicare Primary [id number] Self [id number] MEDICARE [id number] MEDICARE A [id number] Self [id number] A [employer] Part B [id number] Self [id number] [employer] [facility] C[facility] OPTIONS [id number] SP [id number] [place] Med[place] Part B [id number] Self [id number] [facility] Medigap Part B [id number] Self [id number] [place] Med[place] Part B [id number] Self [id number] [facility] [id number] Self [id number] [place] Med[place] Part B [id number] Self [id number] [facility] [id number] Self [id number] [place] Med[place] Part B [id number] .[id number] Self [id number] [facility] Medigap Part B [id number] Self [id number] [place] Med[place] Part B [id number] Self [id number] [facility] [id number] Self [id number] [facility] Med[employer] Part B [id number] Self [id number] Medicare [place] Medicare Primary [id number] Self [id number] AARP U [id number] Self [id number] [facility] MEDICARE [id number] S [id number] MEDICARE COMPLETE [id number] SP [id number] [facility] MEDICARE [id number] S [id number] UHC UNITED MEDICARE COMPLETE G [id number] Self [id number] [facility] Medicare Adv Plan F [id number] SELF [id number] [facility] Medicare Adv Plan F [id number] SELF [id number] [facility] F [id number] SELF [id number] [facility] MEDICARE [id number] [place] [id number] [facility] MEDICARE [id number] [place] [id number] [facility] MEDICARE [id number] xxxxxxxxx [id number] INSURANCE COVID-19 COVID [place] C OVID INSURANCE COVID-19 [id number] xOVID 2 [id number] INSURANCE COVID-19 COVID [place] C OVID Blue Shield Medicare P [id number] SELF [id number] [facility] MEDICARE [id number] [place] [id number] [employer] BS MEDICARE Medicare [id number] ANSI-Commercial [id number] ANSI-Commercial [id number] ANSI-Medicare Part B [id number] ANSI-Medicare Part B [id number] ANSI-Commercial [id number] ANSI-Medicare Part B [id number] ANSI-Commercial [id number] ANSI-Commercial [id number] ANSI-Medicare Part B [id number] ANSI-Commercial [id number] ANSI-Medicare Part B [id number] ANSI-Medicare Part B [id number] ANSI-Commercial [id number] ANSI-Commercial [id number]-[id number] ANSI-Commercial [id number] [id number] ANSI-Medicare Part B [id number] ANSI-Medicare Part B [id number] ANSI-Commercial [id number] ANSI-Medicare Part B [id number] ANSI-Commercial [id number]-[id number] ANSI-Medicare Part B [id number] [facility] HEALTH CARE OPTIONS [id number] S [id number] [facility] [id number] S [id number] MEDICARE [place] [id number] S [id number] [facility] Commercial [id number] Self [id number] [facility]) Commercial [id number] Self [id number] ANSI-Commercial [id number] ANSI-Medicare Part B [id number] ANSI-Commercial [id number]-[id number] [id number]-1c69-[id number] ANSI-Medicare Part B [id number] [facility]) Commercial [id number] Self [id number] [facility]) Commercial [id number] Self [id number] [facility]) Commercial [id number] Self [id number] MEDICARE COMPLETE [id number] SP [id number] [facility] HEALTH CARE OPTIONS [id number] SP [id number] MEDICARE [id number] SP [id number] A AETNA [facility] COMM [id number] S [id number] MEDICARE BLUE PPO 306 [id number] SP [id number] AETNA [facility] [place] [id number] LA2 [id number] MEDICARE BLUE PPO [id number] SP [id number] MEDICARE BLUE PPO 306 [id number] SP [id number] MEDICARE BLUE PPO 306 [id number] SP [id number] MEDICARE COMPLETE [id number] SP [id number] ANSI-Medicare Part B [id number] ANSI-Commercial [id number]-[id number] ANSI-Commercial [id number] ANSI-Medicare Part B [id number] ANSI-Commercial [id number] ANSI-Commercial [id number]-9x33-3go4-[id number] ANSI-Medicare Part B [id number]-[id number]-l81w-[id number] ANSI-Medicare Part B [id number] ANSI-Commercial [id number] [id number] ANSI-Medicare Part B [id number]-wa9p-[id number] ANSI-Medicare Part B [id number]-[id number] ANSI-Commercial gy9e4yo5-[id number] sf8k2wg4-t002-9a60-84v3-6gyi21b04kc4 ANSI-Medicare Part B [id number] ANSI-Commercial [id number]-[id number] [id number]-6br2-tqf1-2767220ttq74 ANSI-Commercial [id number]-dxy4-[id number] [id number]-fxj4-m5y42mio2q88 ANSI-Medicare Part B [id number] ANSI-Medicare Part B [id number] ANSI-Commercial [id number]-[id number]-u9t6rze1al5p hfvp38gy-y328-0d92-27n2-s8c6rld7lu0q ANSI-Commercial fn1gt3c8-zmzy-10v5-shzq-[id number] uu4fz5i0-fdaz-39x4-yzkk-7z467h249f4s ANSI-Medicare Part B [id number]-w1c4-l1g2v89izk70 ANSI-Commercial [id number]-mzmb-6j4h-wo6n-[id number] [id number]-pitt-0u6s-kn8c-[id number] ANSI-Commercial [id number] [id number]-5481-[id number] ANSI-Medicare Part B [id number] tvnkvvuo-[id number] ANSI-Medicare Part B [id number]-[id number] yw93gz41-z186-0b9z-3n5u-6201yn5q5ml8 ANSI-Medicare Part B [id number]-ap0c-15v0-035d-[id number] ANSI-Medicare Part B [id number]-68d4-3b75-4qsf-[id number] ANSI-Commercial [id number]-[id number]-nt43sn33at55 75798j0a-n383-3g95-6f4n-lp38ee39tb72 ANSI-Commercial [id number]-77i7-5j61-f468-2yi07w0yd18j 3p209u2i-18m0-1h85-[id number] ANSI-Medicare Part B [id number]-[id number]-v426-388y-9kf8-ia02qx4d080u ANSI-Medicare Part B [id number]-[id number]-4501-b235-i98878g33g8r ANSI-Commercial [id number]-02t4-7b27-qv73-76ef436bi44g [id number]-84a1-7m54-bd81-85rn664mh52c ANSI-Commercial [id number]-3l1p-20q0-jz1e-5d80b2xqd310 1867077i-3c8i-84b3-oz7o-7w40s1lxg781 ANSI-Commercial [id number]-p705-76d1-3na3-lphkzv44r1ca [id number]-p514-99d9-2fu3-eyvdxu03e8js ANSI-Medicare Part B [id number] ANSI-Medicare Part B [id number]-[id number] ANSI-Commercial jfsx58e6-8343-3394-230t-m440l63h87w4 yunw91y8-4584-3287-263q-p418n48y44g1 ANSI-Medicare Part B [id number]-638a-9035-m25o-[id number] ANSI-Medicare Part B [id number]-[id number] ANSI-Commercial fne19qm6-8n1g-[id number] ukp10iu5-9t6r-3fr7-4ae1-7fri4v92x7x9 Problems, Conditions, and Diagnoses Code Display Name Description Problem Type Effective Dates Data Source(s) G47.30 Sleep apnea, unspecified Sleep apnea, unspecified Diag nosis 11/02/2020 11:09:01 AM EDT [facility] E11.59 Type 2 diabetes mellitus with other circ ulatory complications Type 2 diabetes mellitus with other circ Diagnosis 11/02/2020 11:09:01 AM EDT [facility] Z95.0 Presence of cardiac pacemaker Presence of cardiac pace maker Diagnosis 11/02/2020 11:09:01 AM EDT [facility] I10 Essential (primary) hypertension Essential (primary) h ypertension Diagnosis 11/02/2020 11:09:01 AM EDT [facility] M19.90 Unspecified osteoarthritis, unspecified site Unspecified osteoarthritis, unspecified Diagnosis 11/02/2020 11:09:01 AM EDT [facility] I49.5 Sick sinus syndrome Sick sinus syndrome Diagnosis 0 11/02/2020 11:09:01 AM EDT [facility] I49.3 Ventricular premature depolarization Ventricular premature depolarization Diagnosis 11/02/2020 11:09:01 AM EDT [facility] E78.5 Hyperlipidemia, unspecified Hyperlipidemia, unspecifie d Diagnosis 11/02/2020 11:09:01 AM EDT [facility] I25.83 Coronary atherosclerosis due to lipid ri ch plaque Coronary atherosclerosis due to lipid ri Diagnosis 11/02/2020 11:09:01 AM EDT [facility] I25.10 Atherosclerotic heart diseas e of [place] coronary artery without angina pectoris Atherosclerotic heart disease of [place] Diagnosis 11/02/2020 11:09:01 AM EDT [facility] I48.91 Unspecified atrial fibrillation Unspecified atri al fibrillation Diagnosis 11/02/2020 11:09:01 AM EDT [facility] R23.8 Other skin changes Other skin changes Diagnosis 10:20:20 AM EDT [facility] U07.1 COVID-19 COVID-19 Diagnosis 03/05/2020 10:20:20 AM ED T [facility] M17.11 Unilateral primary osteoarthritis, right knee Unilateral primary osteoarthritis, right Diagnosis 03/02/2020 11:03:33 AM EDT [facility] Z01.818 Encounter for other preprocedural examin ation Encounter for other preprocedural examin Diagnosis 02/19/2020 08:01:03 AM EDT [facility] I48.19 Other persistent atrial fibrillation Oth er persistent atrial fibrillation Diagnosis 02/19/2020 08:01:03 AM EDT [facility] Z28.21 [id number] Immunization not carried out bec ause of patient refusal Problem 02/23/2021 12:00:00 AM EDT eCW1 (Replaced by [facility]) Z91.030 [id number] Bee allergy status Problem 10/25/2020 12:00: 00 AM EDT eCW1 ([facility]) M17.11 Unilateral primary osteoarthritis, right knee Unilateral primary osteoarthritis, right knee [id number] 03/10/2020 12:00:00 AM EDT [facility] I10 Hypertension Hypertension [id number] 03/10/2020 12:00:00 A M EDT [facility] I48.91 Atrial fibrillation Atrial fibrillation [id number] 1 12:00:00 AM EDT [facility] E11.9 Diabetes Diabetes [id number] 03/10/2020 12:00:00 AM ED T [facility] Z95.0 [id number] Cardiac pacemaker in situ Problem 03/03/2020 12:00:00 AM EDT eCW1 ([facility]) M17.11 [id number] Primary osteoarthritis of right knee P roblem 03/03/2020 12:00:00 AM EDT eCW1 ([facility]) Z01.818 Pre-op evaluation Pre-op evaluation [id number] 02/20/2020 12:00:00 AM EDT [facility] Surgeries/Procedures Procedure Description Date Indications Data Source(s) PROF LING BEDOYA IMMNTX X W/PRV ALLGIC XTRCS NJXS 2020 12:00:00 AM EDT [facility] ([facility]) PREPJ& ANTIGEN ALLERGEN IMMUNOTHERAPY 5 INSECTS 2020 12:00:00 AM EDT [facility] ([facility]) PROF LING BEDOYA IMMNTX X W/PRV ALLGIC XTRCS NJXS 2020 12:00:00 AM EDT [facility] ([facility]) PREPJ& ANTIGEN ALLERGEN IMMUNOTHERAPY 5 INSECTS 2020 12:00:00 AM EDT [facility] ([facility]) PROF LING HILLIARDG IMMNTX X W/PRV ALLGIC XTRCS NJXS 2020 12:00:00 AM EDT [facility] ([facility]) PREPJ& ANTIGEN ALLERGEN IMMUNOTHERAPY 5 INSECTS 2020 12:00:00 AM EDT [facility] ([facility]) PROF LING HILLIARDG IMMNTX X W/PRV ALLGIC XTRCS NJXS 2020 12:00:00 AM EDT [facility] ([facility]) PREPJ& ANTIGEN ALLERGEN IMMUNOTHERAPY 5 INSECTS 2020 12:00:00 AM EDT [facility] ([facility]) PROF LING BEDOYA IMMNTX X W/PRV ALLGIC XTRCS NJXS 2020 12:00:00 AM EDT [facility] ([facility]) PREPJ& ANTIGEN ALLERGEN IMMUNOTHERAPY 3 INSECTS 2020 12:00:00 AM EDT [facility] ([facility]) PREPJ& ANTIGEN ALLERGEN IMMUNOTHERAPY 5 INSECTS 2020 12:00:00 AM EDT [facility] ([facility]) PROF LING HILLIARDG IMMNTX X W/PRV ALLGIC XTRCS NJXS 2020 12:00:00 AM EDT [facility] ([facility]) PREPJ& ANTIGEN ALLERGEN IMMUNOTHERAPY 5 INSECTS 2020 12:00:00 AM EDT [facility] ([facility]) PROF SVCS ALLG IMMNTX X W/PRV ALLGIC XTRCS NJXS 2020 12:00:00 AM EDT [facility] ([facility]) PREPJ& ANTIGEN ALLERGEN IMMUNOTHERAPY 5 INSECTS 2020 12:00:00 AM EDT [facility] ([facility]) OFFICE OUTPATIENT VISIT 15 MINUTES 02/02/2021 12:00:00 AM EDT [facility] ([facility] ) OFFICE OUTPATIENT VISIT 15 MINUTES 01/09/2021 12:00:00 AM EDT [facility] ([facility]) GLUC BLD GLUC MNTR DEV CLEARED FDA SPEC HOME USE <td>P OCT GLUCOSE</td><td>Routine</td><td>03/11/2020 7:18 AM EDT</td><td></td><td> </td> 03/11/2020 11:18:00 AM EDT [facility] BLOOD COUNT HEMATOCRIT <td>HEMATOCRIT</td><td>Routi ne</td><td>03/11/2020 4:26 AM EDT</td><td></td><td> </td> 03/11/2020 08:26:00 AM EDT [facility] GLUC BLD GLUC MNTR DEV CLEARED FDA SPEC HOME USE <td>P OCT GLUCOSE</td><td>Routine</td><td>03/10/2020 3:34 PM EDT</td><td></td><td> </td> 03/10/2020 07:34:00 PM EDT [facility] GLUC BLD GLUC MNTR DEV CLEARED FDA SPEC HOME USE <td>P OCT GLUCOSE</td><td>Routine</td><td>03/10/2020 1:31 PM EDT</td><td></td><td> </td> 03/10/2020 05:31:00 PM EDT [facility] ARTHRP KNE CONDYLE&PLATU MEDIAL&LAT CMPRTS <td>ARTHROP LASTY, KNEE, TOTAL</td><td></td><td>03/10/2020 12:05 PM EDT</td><td> Unilateral primary osteoarthritis, right knee</td><td></td> 03/10/2020 04:05:00 PM EDT - 03/10/2020 05:51:00 PM EDT Unilateral primary osteoarthritis, right knee [facility] Unilateral primary osteoarthritis, right knee GLUC BLD GLUC MNTR DEV CLEARED FDA SPEC HOME USE <td>P OCT GLUCOSE</td><td>Routine</td><td>03/10/2020 9:50 AM EDT</td><td></td><td> </td> 03/10/2020 01:50:00 PM EDT [facility] THROMBOPLASTIN TIME PARTIAL PLASMA/WHOLE BLOOD <td>APTT</td><td>STAT</td><td>03/10/2020 9:46 AM EDT</td><td></td><td> </td> 03/10/2020 01:46:00 PM EDT [facility] BLOOD COUNT COMPLETE AUTOMATED <td>CBC</td><td>STAT</t d><td>03/10/2020 9:46 AM EDT</td><td></td><td> </td> 03/10/2020 01:46:00 PM EDT [facility] Results ID Date Data Source [id number] 03/14/2021 12:13:24 PM EDT [facility] Sj Morris: 1950rovider: Shelby Kennedy: 03/14/2021 Reason For VisitStephen Ryder is here today for Right knee. Patient denies any symptoms of or pending results for COVID 19 or contact with anyone with COVID 19. Sj Soler is an established patient here for follow up. Surgery DOS: 03/10/2020. Surgery Description: Right TKA. Patient is retired. AssessmentChief complaint: 1 year status post a right total knee arthroplasty March 10, 2021History was obtained from patient, chronic condition [id number] retired patient doing well. He has no pain or giving way. Also has no swelling. He has some trouble going downstairs to the point of stairs is fine. He has clicking when he walks.General: Alert and oriented x 3, no distress, normal mood and affect. Skin: warm and dry.Right knee: Skin warm and dry. Well-healed scar. Positive swelling. No pain to palpation, instability or edema. Posttibial and pedal pulses are positive, sensation is intact. Range of motion 0 to 120 degreesX-rays: AP standing, lateral and merchants of the right knee ordered, obtained and interpreted by me today to evaluate right total knee arthroplasty show the components in good position without signs of loosening or wear.Impression: Primary osteoarthritis right knee, 1 year status post a right total knee arthroplastyPlan: Patient is doing well. I recommended activities as tolerated except for high impact activities. I recommend a regular exercise program. Follow-up in 1 year with x-rays. Patient agrees with the plan. Plan X-Ray I Knee - 3 views (XRays were ordered, obtained and interpreted today in theoffice. Indication: pain/dysfunction.); Status:Complete; Done: 14Mar2021 Perform:SOS29; Due:28Mar2021; Last Updated By:Salima Plasencia; 03/14/2021 8:29:18 AM;Ordered; For:Right knee pain; Ordered By:Edy Kennedy;Weight Bearing Status : Weight bearingLaterality: : Right Work / School NoteThe percentage of temporary impairment is 0%. Sj Soler is retired. This document was dictated and electronically signed using [employer] software. A reasonable attempt at proof reading has been made to minimize errors. Please call with any questions. Signatures Electronically signed by : Jack Steele; Mar 14 2021 8:54AM EST (Author) Electronically signed by : George Iraheta M.D.; Mar 14 2021 12:13PM EST Name Value Range Interpretation Code Description Data Klarissa rce(s) Supporting Document(s) ID Date Data Source [id number] 06/17/2020 06:53:16 AM EST [facility] PCName: Sj SolerDOB: 1Provider: Shelby Kennedy: 06/14/2020 Reason For VisitSkole Soler is here today for Right knee. Sj Soler is an established patient here for follow up. Surgery DOS: 03/10/2020. Surgery Description: Right TKA. Patient is retired. AssessmentChief complaint: 14-week status post a right total knee arthroplasty March 10, 2020History was obtained by the patientChronic stable [id number] retired patient is here for his 14-week follow-up regarding his right total knee arthroplasty. Patient's only real complaint is that it is swollen still and that it clicks. He has no instability. He is doing exercises at home such as walking and exercises from physical therapy.General: Alert and oriented x 3, no distress, normal mood and affect. Skin: warm and dry.Right knee: Skin warm and dry. Well-healed anterior scar. Positive swelling. No pain to palpation, instability or edema. Posttibial and pedal pulses are positive, sensation is intact. Range of motion 0 to 125 degreesImpression: 14 weeks status post right total knee arthroplastyPlan: Patient is doing great. Continue exercises at home. I told him that the clicking is normal and the swelling can last up to a year. He is doing well enough where he does not need to come back in 1 year anniversary visit we will get x-rays. This document was dictated and electronically signed using [employer] software. A reasonable attempt at proof reading has been made to minimize errors. Please call with any questions. Signatures Electronically signed by : Jack Steele; Jun 14 2020 9:41AM EST (Author) Electronically signed by : George Iraheta M.D.; Jun 17 2020 6:53AM EST Name Value Range Interpretation Code Description Data Klarissa rce(s) Supporting Document(s) ID Date Data Source [id number] 04/29/2020 09:19:16 AM EST [facility] PCName: Sj CasonB: 1Provider: Edwin Iraheta: 04/19/2020 Reason For VisitSkole Soler is here today for Right Knee. Sj Soler is an established patient here for follow up. 6 weeks post op; Patient states he is doing well, much better. He reports that drainage has stopped. He is no longer on antibiotics (Keflex). Does own exercise at home. Cane to ambulate. Oxycodone PRN. On Eliquis for Afib. Surgery DOS: 03/10/2020. Surgery Description: RTKA. Patient is retired. AssessmentREASON FOR VISIT:Six weeks status post posterior-stabilized right total knee on 03/10/20 70-year-old male had a little bit of drainage from the knee. One of the P.A.'s saw him. He was on Eliquis for atrial fibrillation. The Eliquis dose was cut in half and he was placed on prophylactic antibiotics. He comes in today. The drainage stopped and he's off the antibiotics. He is doing his own exercises. He uses a cane to get around. He is still on Eliquis.PAST MEDICAL HIS TORY:Please see intake.PHYSICAL EXAMINATION:He is afebrile. He is 5'6 and weighs 235 pounds. He is alert, awake and oriented, with appropriate mood and affect. Examination of the right knee: The knee looks great. He is able to [id number]. Motion is from 0 to 120, with good stability. Good motion of the hip. Sensory and motor are intact.IMPRESSION:Status post posterior- stabilized right total knee, coming along beautifully. He is really happy with his progress. His prognosis is excellent.RECOMMENDATION: Continue to exercise on his own. We will see him for one more visit in two months. If everything looks good at that visit, he's done for a year. Signatures Electronically signed by : Cyn Combs, ; Apr 19 2020 3:14PM EST Electronically signed by : George Iraheta M.D.; Apr 29 2020 9:19AM EST Name Value Range Interpretation Code Description Data Klarissa rce(s) Supporting Document(s) ID Date Data Source [id number] 04/04/2020 02:08:12 PM EST [facility]Name: Sj Morris: 1Promackenzie: Shelby Kennedy: 04/01/2020 Reason For VisitVerbal consent obtained from the patient for telemedicine visit. This assessment was done using telemedicine as a result of social distancing due to the outbreak of COVID-19. 10 minutes for review of chart, virtual visit itself, and documentation. This includes reviewing chart and talking to patient. History of Present IllnessChief complaint: Incision check.64-year-old retired patient of Dr. Iraheta who had a right total knee arthroplasty on 03/10/[address] Iraheta on 03/25/2020 for a postop visit. But he was having persistent drainage. Patient was placed on Keflex and was told to stop his Eliquis for 3 days and that he would: Today for a virtual visit check. Patient says that the drainage is stopped. He has no fevers or chills. He is doing a home exercise program since he has not been to therapy this week. Physical ExamRight knee: Incision looks good there is some b ruising to up with no redness and there is no more drainage. There is positive swelling. Assessment3 weeks status post a right total knee arthroplasty PlanPatient is doing good the drainage has stopped. They are asking when he can go back to his full Eliquis dose and I think that that would be okay to start today but then start up with physical therapy next week. Will get a make an appointment to come back to see Dr. Pickens in about 3 weeks DisclaimersThis document was dictated and electronically signed using [employer] software. A reasonable attempt at proof reading has been made to minimize errors. Please call with any questions. Signatures Electronically signed by : Jack Steele; Apr 01 2020 11:47AM EST (Author) Electronically signed by : George Iraheta M.D.; Apr 04 2020 2:08PM EST Name Value Range Interpretation Code Description Data Klarissa rce(s) Supporting Document(s) ID Date Data Source [id number] 03/30/2020 08:25:16 AM EST [facility] PCName: Sj SolerDOB: 1Provider: Edwin Iraheta: 03/28/2020 Reason For VisitVerbal consent obtained from the patient for telemedicine visit. This assessment was done using telemedicine as a result of social distancing due to the outbreak of COVID-19. 10 minutes for review of chart, virtual visit itself, and documentation. Sj Soler is an established patient here for follow up. AssessmentA virtual visit was performed today in view of the Dhillon virus. A virtual visit rather than an office visit is felt to be appropriate in view of increased risks due to the Dhillon virus. Patient identification was performed in the appropriate manner.Reason for Visit:Follow-up right total knee on 03/10/2020.Sj is a 69-year-old who had a posterior stabilized right total knee on 03.10.2020. He was having some drainage from the knee when one of the PA's saw him on 03/24/2020. He is on Eliquis for atrial fib. The dose was cut in half and placed on prophylactic antibiotics. He came in on 03/25/2020. The drainage was less but still persistent. I told him to stop the Eliquis for three days when I saw him this past 03/25/2020. Virtual Physical Examination:He is 5'6 and weighs 240 pounds. Patient is alert, awake and oriented, appropriate mood and affect. He told me the drainage had stopped until he took his shower and then a little bit of recurrence but essentially has been very minimal since he stopped the Eliquis. I looked at his knee today and he can extend to 0, flex to 90 and there does not appear to be any drainage.Impression:Posterior stabilized right total knee a little over two weeks.I told him to start the Eliquis, half dose and will see him virtually again this 04/01/2020. If there is drainage before then, he will call.I will call in a new script for Keflex. Plan 1. Start: Cephalexin 500 MG Oral Capsule (Keflex); TAKE 1 CAPSULE EVERY 12 HOURS DAILY Signatures Electronically signed by : Eileen Tran, ; Mar 28 2020 3:01PM EST Electronically signed by : George Iraheta M.D.; Mar 30 2020 8:25AM EST Name Value Range Interpretation Code Description Data [facility] rce(s) Supporting Document(s) ID Date Data Source [id number] 03/28/2020 11:01:06 AM EST [facility] PCName: Sj SolerDOB: 1Provider: Terrie IrahetaOS: 03/25/2020 Reason For VisitSkole Soler is here today for Right Knee. Sj Soler is an established patient here for follow up. 15 days post op; Patient here for incision check. He has had bleeding from incision. He started Keflex yesterday. CARMELO bandage on over dressing- has been changing Q 2 or 3 hours. Walker to ambulate. Surgery DOS: 03/10/2020. Surgery Description: RTKA. Patient is retired. AssessmentReason for Visit:Follow-up right total knee.Michael is a 69-year-old male who had a posterior stabilized right total knee performed on 03/10/2020. Preop just shy of extension to 115. He was seen by Karlie Ghohs on 03.24.2020 and was having some drainage from the knee. He is on Eliquis for atrial fibrillation. His does was cut in half and placed on some prophylactic antibiotics which he has been taking.Past Medical History:See intake. He is afebrile and continues to have some incisional pain from the very distal part of the incision. He has an carmelo bandage and soaks basically over a period of 2 to 4-5 hours. He is changing it every two hours and is here for me to check it.Physical Examination:He is 5'6 and weighs 240 pounds Patient is alert, awake and oriented, appropriate mood and affect. He is afebrile and I removed his dressing. The incision itself looks good. The very distal part of the incision is draining basically and is oozing sort of a dark venous colored blood. He can extend to 0 and flex to 90. Impression:Posterior stabilized right total knee two weeks out with persistent drainage . He will continue the Keflex and stop the Eliquis for three days and virtual visit on Saturday to check this incision to see if the draining is slowing down and decision about whether to do anything or just watch. Signatures Electronically signed by : Eileen Tran, ; Mar 25 2020 12:37PM EST Electronically signed by : George Iraheta M.D.; Mar 28 2020 11:01AM EST Name Value Range Interpretation Code Description Data Klarissa rce(s) Supporting Document(s) ID Date Data Source [id number] 03/28/2020 11:00:55 AM EST [facility]Name: Sj SolerDOB: 1Provider: Cindy Ghosh: 03/24/2020 Reason For VisitSkole Soler is here today for right knee. Sj Soler is an established patient here for follow up. Surgery DOS: 03/10/2020. Surgery Description: right knee replacement. The patient has not had a course of physical therapy for greater than 4 weeks. The patient has not had a course of NSAIDs for greater than 4 weeks. The patient cannot tolerate NSAIDs. Patient is retired. History of Present IllnessPatient continues to have some spotting on his bandage of the distal aspect of the incision. His dressing was partially taken down in the beginning of the week, he presents today to have the dressing checked again. AssessmentStatus post right knee total knee after plasty posterior stabilizing knee on 03/10/20Plan: The distal aspect of the incision continues to drain. He states that over the last 2 days it has slowed down remarkably, and easily had a change the dressing once a day. The rest of the tape was taken down today. When the dressing was pulled off there was a hematoma that came with it, there still is some drainage coming from the distal aspect of the incision. There is a little bit of redness down the leg as well, and I'm concerned he may be developing a cellulitis. With the persistent bleeding to the distal aspect of the wound and the redness I would like him to see Dr. Iraheta tomorrow so he is advised on the area to see if there is anything further that needs to be done. He is on eloquis so naturally we are going to see more bleeding, but this seems to be active oozing since surgery. He was placed on Keflex and he'll begin his dose tonight. He understands the treatment plan. Plan Start: Cephalexin 500 MG Oral Capsule (Keflex); TAKE 1 CAPSULE 4 times daily takewith food for ten days Rx By: Tena Ghosh; Dispense: 5 Days ; #:20 Capsule; Refill: 0;For: Status post left knee replacement; GRACE = N; Verified Transmission to [facility]; Last Updated By: Jered Garcia; 03/24/2020 1:17:21 PM Plan, Assessment and Recommendation(s) Schedule Appointment: Days: 1 The nature of the diagnosis and various treatment alternatives were discussed today, including invasive, operative, and non- operative options. DisclaimersThis document was dictated and electronically signed using [employer] software. A reasonable attempt at proof reading has been made to minimize errors. Please call with any questions. Signatures Electronically signed by : Tena Ghosh PA-C; Mar 24 2020 5:21PM EST (Author) Electronically signed by : George Iraheta M.D.; Mar 28 2020 11:00AM EST Name Value Range Interpretation Code Description Data Klarissa rce(s) Supporting Document(s) ID Date Data Source [id number] 03/28/2020 11:00:44 AM EST [facility]: Sj [facility]: 1Provider: Cindy Ghosh: 03/21/2020 Reason For VisitSkole Soler is here today for right knee. Sj Soler is here for first post-op appointment. Surgery DOS: 03/10/2020. Surgery Description: right knee replacement. The patient has not had a course of physical therapy for greater than 4 weeks. The patient has not had a course of NSAIDs for greater than 4 weeks. The patient cannot tolerate NSAIDs. Patient is retired. History of Present IllnessThe patient's post-surgical course has been without complication. Rehabilitation is progressing normally. The patient denies increased pain, increased swelling, fever, chills or purulent drainage. AssessmentStatus post right knee total knee after plasty posterior stabilizing knee on 03/10/20Plan: Patient is on eloquis, he does have some bleeding to the distal aspect of the incision, which has come and gone over the last few days. When I took the dressing down I left the last portion of the incision intact because of this drainage. I advised he place ABDs and 4 x 4's over this area and continue to watch it. The drainage is worsened so called the office, otherwise, see him back on and we'll remove the rest of the dressing at this time. No signs of infection, he is healing very nicely, a.c. He told him b.i.d. for the pain. He is in a hold on outpatient PT this week and just do the exercises on his own as this incision heals and neck beginning back and outpatient PT. He understands. He also understands antibiotic prophylaxis for 2 years prior to dental appointments. Plan X-Ray I Knee - 3 views (XRays were ordered, obtained and interpreted today in theoffice. Indication: pain/dysfunction.); Status:Complete; Done: 21Mar2020 Perform:SOS29; Due:04Apr2020; Last Updated By:Tena Odom; 03/21/2020 10:08:09 AM;Ordered; For:Right knee pain; Ordered By:Tena Ghosh;Weight Bearing Status : Weight bearingLaterality: : Right Plan, Assessment and Recommendation(s) Schedule Appointment: Days: 4 The nature of the diagnosis and various treatment alternatives were discussed today, including invasive, operative, and non- operative options. DisclaimersThis document was dictated and electronically signed using [employer] software. A reasonable attempt at proof reading has been made to minimize errors. Please call with any questions. Signatures Electronically signed by : Tena Ghosh PA-C; Mar 21 2020 12:10PM EST (Author) Electronically signed by : George Iraheta M.D.; Mar 28 2020 11:00AM EST Name Value Range Interpretation Code Description Data Klarissa rce(s) Supporting Document(s) ID Date Data Source [id number] 03/28/2020 11:00:33 AM EST [facility]: Sj SolerDOB: 1Provider: Shelby Kennedy: 03/18/2020 Reason For VisitSkole Soler is here today for right knee. Sj Soler is here for first post-op appointment. Surgery DOS: 03/10/2020. Surgery Description: right knee replacement. The patient has not had a course of physical therapy for greater than 4 weeks. The patient has not had a course of NSAIDs for greater than 4 weeks. The patient cannot tolerate NSAIDs. Patient is retired. AssessmentChief complaint: Incisional [id number] retired patient of Dr. Pickens who had a right total knee arthroplasty on 03/11/2020 comes in today because he noticed yesterday after doing home physical therapy exercises that he was bleeding on the inferior aspect of the incision. He is on Eliquis for history of A. fib. He also post outpatient physical therapy. Denies any fevers or chills or numbness or tingling. His temperature in the office is 97.0.General: Alert and oriented x 3, no distress, normal mood and affect. Skin: warm and dry.Right knee: There is no active bleeding at this time. He is has the dressing over it. There is some blood on the gauze that he had on it before. No redness but a lot of ecchymosis to the knee. His range of motion is 5 to about 85 degrees.Impression: 8 days status post right total knee arthroplasty with incisional bleeding that has resolved at this point.Plan: Patient says most of the bleeding occurs after doing his home exercises. Working dressing with sterile gauzes and a compression dressing. We will schedule him some supplies to go home with. He has an corina ointment on Saturday for his first postop visit. We will see him at that time. If things change he can call the office. Plan Start: oxyCODONE HCl - 5 MG Oral Tablet; 1 tab PO Q4h PRN for pain MDD:6 Rx By: Edy Kennedy; Dispense: 7 Days ; #:40 Tablet; Refill: 0;For: Status post left knee replacement; GRACE = N; Sent To: [facility] #48; Msg to Pharmacy: ISTOP: [phone]; Last Updated By: Dionna Mejia; 03/18/2020 11:19:03 AM DisclaimersThis document was dictated and electronically signed using [employer] Speaking software. A reasonable attempt at proof reading has been made to minimize errors. Please call with any questions. Signatures Electronically signed by : Jack Steele; Mar 18 2020 11:23AM EST (Author) Electronically signed by : George Iraheta M.D.; Mar 28 2020 11:00AM EST Name Value Range Interpretation Code Description Data Klarissa e(s) Supporting Document(s) ID Date Data Source [id number] 03/17/2020 06:23:18 AM EDT [facility] NT INFORMATIONPatient MRN Name Date of Age Gend*PT [id number] Sj Soler 1950 69 years M SDCXPT Location Admission Date/Time Visit ID Attending [id number] 03/10/20 0851 --- --- EPI ID CSN Admitting Provider [id number] George Iraheta MD([id number]) [place] [address] OPERATIVE REPORT OPNAME: SJ SOLERJackie#: [id number] #: [id number] ADMISSION DATE: 03/10/2020DOB: 1950 SEX: M PT TYPE: S SURACCT #: [id number] CARE PHYSICIAN: LAW RAND OF OPERATION: 03/10/20PREOPERATIVE DIAGNOSIS:End-stage secondary osteoarthritis, right knee.POSTOPERATIVE DIAGNOSIS:End-stage secondary osteoarthritis, right knee.PROCEDURE:Posterior stabilized right total knee.ANESTHESIA:Spinal with adductor block.SURGEON:George Iraheta MD.COMPONENT INSPECTOR:Grey Rice, [facility]COMPON[facility]:[employer] size 6 right tibia, size 6 right posteriorstabilized femur, 38 oval patella, 9 mm stabilized insert.INDICATIONS:A 69-year-old male with end-stage arthritis of his knee, has progressed tothe point where it affects all activities of daily life. He has a BMI of39. His preop motion is just shy of extension to 115, varus of 7. X-raysconfirmed severe disease with tchs-nm-cled disease medially.OPERATIVE FINDINGS:Intraoperatively, he had pretty good bone quality, severe arthritis in all3 compartments with the medial being the worst. Osteophytes on the femur,tibia and patella.DESCRIPTION OF PROCEDURE:Intravenous cefazolin 2 g was given within one hour of incision time andordered to be stopped within 24 hours of surgery. The patient was broughtinto the operating room, having achieved appropriate anesthesia in theblock room. Prophylactic antibiotics were given. A Romero catheter hadalready been placed. The patient was positioned on the operative table inthe supine position with a bump under the buttock and a tourniquet aroundthe thigh. The lower extremity was formally prepped and draped. The sideidentification was formally confirmed. The leg was exsanguinated, and atourniquet was inflated to 300 mmHg. The incision began two fingerbreadthsabove the patella and extended down medial to the tibial tubercle. It wasextended through the skin and subcutaneous tissue, down to the deep fascia. A medial arthrotomy was performed. We subperiosteally dissected the softtissue off the proximal and medial tibia. The patella was everted. Precutdepth was measured, and using a hands-free technique we removed enough boneto leave a width of between 12 and 13 mm of bone. The patella was sized,and the appropriate sized patella was selected and lug holes were drilled.The knee was flexed, and the patella was everted. The anterior portion ofthe medial and lateral ligaments and the anterior cruciate ligament wereexcised. The femoral canal was sounded with a large femoral drill. Thedistal femoral cutting guide was placed at an angle of 5-6 degrees, and 10mm of bone was removed. The femur was sized, and the appropriaterotational pins were placed. The appropriate sized collar cutting guidewas secured with pins, and the anterior and posterior condylar cuts,chamfer cuts, and patellar notch cut were made. Osteophytes were removed.The tibia was subluxed anteriorly, and the remaining portions of the medialand lateral menisci were excised. The proximal tibial cutting guide wasplaced parallel to the tibial crest with about a 5 degree posterior slope,and approximately 10-12 mm of bone was removed from the proximal tibia,preserving the posterior cruciate ligament. The tibia was sized.Osteophytes from the back of the femur were checked for and appropriatelyremoved. A trial reduction was done with the appropriate size femur andtibia and the appropriate size insert. The rotation of the tibialcomponent was marked. The trial components were removed. The tibial baseplate was placed in the appropriate rotational position, secured, and thestem cut and keel cut were made using the Lidya guide. The trials wereremoved. Pulsatile irrigation was used to clean out the knee. Cement wasmixed using a suction system. The tibia was cemented first, followed bythe femur. The trial insert was placed. The knee was held in extension.The patella was placed and held with a patellar clamp. Once the cement washard, excess cement was removed with an osteotome, and the appropriate sizeinsert was placed. The deep fascia was closed with fhbzdvgskuqdzumyr-iz-cvzlz #2 Vicryl. The subcu was closed with a running 0 V- Locsuture in the subcuticular with a running 2-0 V-Loc suture. A steriledressi ng was applied. I was present for ghotra portions of the operativeprocedure, which included the side identification, operative exposure,insertion of the components, and initiation of closure. In addition, I wasimmediately available to return to the operating room should there be anypotential or realized complications. Tranexamic acid was used by mouth joy pain cocktail was injected.KIEL Kern/CROW Job #: [id number] DOC #: [id number]: VU TOVAR MD [facility] LAURA VASQUEZ MD Name Value Range Interpretation Code Description Data Klarissa rce(s) Supporting Document(s) ID Date Data Source [id number] 03/17/2020 06:21:31 AM EDT [facility] NT INFORMATIONPatient MRN Name Date of Age Gend*PT [id number] Sj Soler 1950 69 years M SDCXPT Location Admission Date/Time Visit ID Attending [id number] 03/10/20 0851 --- --- EPI ID CSN Admitting Provider [id number] George Iraheta MD([id number]) Attestation signed by George Iraheta MD at 03/17/2020 6:21 AMChart reviewed, I agree with the findings and plan of care as communicated tothe Midlevel provider.Signature: MARIO Kernate: March 17, 2020Time: 6:21 AM ORTHOPEDIC DISCHARGE SUMMARYPatient Name: Sj Soler of : 1950 Age 69 yearsPrimary Physician: LAW FREITAS MD PCP [id number] Date: 03/10/2020 Discharge Date: 03/11/2020Admission Provider: George Iraheta MD Discharge Provider: Antonio Schmidt PADischarge Diagnoses:Principal Problem: Unilateral primary osteoarthritis, right kneeActive Problems: Hyperlipidemia Coronary artery disease Sleep apnea Atrial fibrillation Diabetes HypertensionResolved Problems: * No resolved hospital problems. *Surgical Procedures:Procedure(s):ARTHROPLASTY, KNEE, TOTAL RIGHT (Right)Brief Hospital Course:Patient was admitted through ambulatory unit. Patient underwent procedurewithout any complications. Postoperatively, patient had DVT prophylaxis withLovenox. Hospital course was uneventful. Patient had physical therapy while inthe hospital. Pain control was maintained with IV and oral pain medicationsinitially and transitioned to only oral when tolerating pain without any IVmedications. Once discharge criteria was met, the patient was found to be stablefor discharge. Please see discharge instructions and medications for furtherdetails.Discharge disposition: He will be discharged [facility] to home in stable condition.Discharge Weight Bearing Status:WBATDischarge Medications:Patient was instructed to refrain from driving or operating machinery untilcleared by surgeon.Current Discharge Medication ListSTART taking these medications DetailsoxyCODONE (ROXICODONE) 5 MG immediate release tablet Take 0.5-1 tablets (2.5-5mg total) by mouth every 4 (four) hours as needed for pain Max Daily Amount: 6tabletsQty: 30 tablet, Refills: 0senna (SENOKOT) 8.6 MG TABS Take 2 tablets (17.2 mg total) by mouth dailyQty: 60 each, Refills: 0CONTINUE these medications which have CHANGED DetailsApixaban (ELIQUIS) 5 MG TABS tablet Take 0.5 tablets (2.5 mg total) by mouth 2(two) times a day Continue for 2 weeks, then restart home dosing thereafterCONTINUE these medications which have NOT CHANGED Detailsallopurinol (ZYLOPRIM) 100 MG tablet Take 100 mg by mouth nightlyamLODIPine-benazepril (LOTREL) 10-40 MG per capsule Take 1 capsule by mouthnightlybeta carotene w/ C and E mineral (OCUVITE) tablet Take 1 tablet by mouth nightlyErtugliflozin L-PyroglutamicAc (STEGLATRO) 15 MG TABS Take 15 mg by mouth dailyezetimibe-simvastatin (VYTORIN) 10-20 MG per tablet Take 1 tablet by mouth 3(three) times a week on Mon, Sat, Satglimepiride (AMARYL) 4 MG tablet Take 8 mg by mouth every morning beforebreakfast!! metoprolol succinate (TOPROL-XL) 25 MG 24 hr tablet Take 50 mg by mouth daily!! metoprolol succinate (TOPROL-XL) 25 MG 24 hr tablet Take 25 mg by mouthnightlySITagliptin-metFORMIN HCl ER (JANUMET XR) 50-1000 MG TB24 Take 2 tablets bymouth nightlyEPINEPHrine (EPIPEN IJ) Inject as directed As needed for bee/hornet/wasp stings !! - Potential duplicate medications found. Please discuss with provider.Follow Up Instructions:An After Visit Summary was printed and given to the patient.Items needing special attention: noneDischarge Exam:Blood Pressure: BP: 158/83 Pulse: Heart Rate: 60Temperature: Temp: 97.5 F Respirations: Resp: 16Admission Weight: Weight: (!) 109.8 kg (242 lb) O2 Saturation: SpO2: 94 %Discharge Weight: Weight: (!) 109.8 kg (242 lb) BMI: Body mass index is 39.06kg/m .Physical ExamGeneral: A/O x 3, NAD.Respiratory: Breathing unlaboredOrthopedic: Right knee exam: Dressing clean, dry and intact. Sensation intactbilaterally. Strength intact bilaterally, 5/5 DF/PF bilaterall y.Diagnostics:Lab ResultsComponent Value Date WBC 6.1 03/10/2020 HGB 15.0 03/10/2020 HCT 36.3 (L) 03/11/2020 MCV 97.6 (H) 03/10/2020 PLT 203 03/10/2020Lab ResultsComponent Value Date INR 1.03 03/02/2020 PROTIME 10.7 03/02/2020Lab ResultsComponent Value Date CREATININE 0.73 (L) 03/02/2020 BUN 11 03/02/2020 NA 141 03/02/2020 K 4.4 03/02/2020 CL 108 03/02/2020 CO2 26 03/02/2020 GLU 94 03/02/2020Significant Imaging:noneConsults:noneSignature: [phone]: March 11, 2020Time: 9:02 AM Name Value Range Interpretation Code Description Data Klarissa rce(s) Supporting Document(s) ID Date Data Source [id number] 03/11/2020 07:19:26 AM EDT [facility] Name Value Range Interpretation Code Description Data Klarissa rce(s) Supporting Document(s) POC NOVA GLU 202 mg/dL (70-99) H [facility] ID Date Data Source [id number] 03/11/2020 05:46:56 AM EDT [facility] Name Value Range Interpretation Code Description Data Klarissa rce(s) Supporting Document(s) HCT 36.3 % (41.0-53.0) L [facility] AT [address] [place] [address] [facility] [address] ID Date Data Source [id number] 03/10/2020 03:36:03 PM EDT [facility] Name Value Range Interpretation Code Description Data Klarissa rce(s) Supporting Document(s) POC NOVA GLU 200 mg/dL (70-99) H [facility] ID Date Data Source [id number] 03/10/2020 01:33:28 PM EDT [facility] Name Value Range Interpretation Code Description Data Klarissa rce(s) Supporting Document(s) POC NOVA GLU 186 mg/dL (70-99) H [facility] ID Date Data Source [id number] 03/10/2020 11:52:13 AM EDT [facility] NT INFORMATIONPatient MRN Name Date of Age Gend*PT [id number] Sj Soler 1950 69 years M SDXPT Location Admission Date/Time Visit ID Attending Provider --- --- --- --- EPI ID CSN Admitting Provider [id number] ---Spinal BlockPatient location during procedure: block roomStaffingAnesthesiologist: Tim Bernstein MDPerformed: anesthesiologistPreanesthetic ChecklistCompleted: patient identified, site marked, surgical consent, pre-op evaluation,timeout performed, IV checked, risks and benefits discussed and monitors andequipment checkedSpinal BlockPatient position: sittingPrep: DuraPrepPatient monitoring: NIBP, heart rate, continuous pulse ox and cardiac monitorApproach: left paramedianLocation: L3-4Injection technique: single-shotNeedleNeedle type: SprotteNeedle gauge: 25 GNeedle length: 10 cmAssessmentSensory level: X96Jpulyn: cerebrospinal fluidAdditional Notes3 swirls Name Value Range Interpretation Code Description Data Klarissa rce(s) Supporting Document(s) ID Date Data Source [id number] 03/10/2020 11:20:57 AM EDT [facility] NT INFORMATIONPatient MRN Name Date of Age Gend*PT [id number] Sj Soler 1950 69 years M SDCXPT Location Admission Date/Time Visit ID Attending Provider --- --- --- --- EPI ID CSN Admitting Provider [id number] ---Peripheral BlockPatient location during procedure: pre-opReason for block: at surgeon's request and post-op pain managementStaffingAnesthesiologist: Kendra Poncet/DIGITIZER OPERATOR: Consuelo FordPerformed: anesthesiologist and resident/CRNAPreanesthetic ChecklistCompleted: patient identified, site marked, surgical consent, pre-op evaluation,timeout performed, IV checked, risks and benefits discussed and monitors andequipment checkedPeripheral BlockPatient position: supinePrep: ChloraPrepPatient monitoring: registered nurse cardiac, continuous pulse ox and heart rateBlock type: adductor canalLaterality: rightInjection technique: single-shotProcedures: ultrasound guidedLocal infiltration: ropivicaineInfiltration strength: 0.5 %Dose: 20 mLNeedleNeedle type: Regional needleNeedle gauge: 22 GNeedle length: 10 cmNeedle localization: ultrasound guidanceNeedle insertion depth: 6 cmTest dose: not conductedAssessmentInjection assessment: negative aspiration for heme Q 5 ml, no paresthesia oninjection, incremental injection and local visualized surrounding nerve onultrasoundParesthesia pain: noneHeart rate change: no Name Value Range Interpretation Code Description Data Klarissa rce(s) Supporting Document(s) ID Date Data Source [id number] 03/10/2020 11:05:13 AM EDT [facility] NT INFORMATIONPatient MRN Name Date of Age Gend*PT [id number] Sj Soler 1950 69 years M SDCXPT Location Admission Date/Time Visit ID [facility]ending [facility]PER[facility] 03/10/20 0851 --- George Iraheta MD([id number]) EPI ID CSN Admitting Provider [id number] George Iraheta MD([id number])Attending Admission Note:Please refer to the H&P Completed within 30 days prior to admission for details.Update to History and Physical:I have reviewed the patients H&P, there are no significant changes in thepatients history or physical exam.Signature: MARIO Kernate: March 10, 2020Time: 11:05 AM Name Value Range Interpretation Code Description Data Klarissa rce(s) Supporting Document(s) ID Date Data Source [id number] 03/10/2020 09:51:58 AM EDT [facility] Name Value Range Interpretation Code Description Data Klarissa rce(s) Supporting Document(s) POC NOVA GLU 193 mg/dL (70-99) H [facility] [place] [facility] ID Date Data Source [id number] 03/10/2020 10:36:30 AM EDT [facility] Name Value Range Interpretation Code Description Data Klarissa rce(s) Supporting Document(s) APTT 27.5 s (22.0-34.3) [facility] AT [address] [place] [address] ID Date Data Source [id number] 03/10/2020 10:24:52 AM EDT [facility] Name Value Range Interpretation Code Description Data Klarissa rce(s) Supporting Document(s) WBC 6.1 10*3/uL (4.1-11.0) [facility] RBC 4.53 10*6/uL (4.60-6.10) L [facility] HGB 15.0 g/dL (13.5-18.0) [facility] HCT 44.2 % (41.0-53.0) [facility] AT [address] [place] [address] MCV 97.6 fL (80.0-95.0) H [facility] MCH 33.1 pg (27.0-32.0) H [facility] MCHC 34.0 g/dL (32.0-36.0) [facility] RDW 12.9 % (10.5-14.5) [facility] PLT 203 10*3/uL (150-450) [facility] MPV 8.8 fL (7.1-10.7) [facility] ID Date Data Source [id number] 03/05/2020 09:40:00 AM EDT [facility] Name Value Range Interpretation Code Description Data Klarissa rce(s) Supporting Document(s) SARS coronavirus 2 RNA [facility] This lab was ordered by [facility] and reported by [facility]. ID Date Data Source [id number] 03/06/2020 11:08:04 AM EDT [facility] Name Value Range Interpretation Code Description Data Klarissa rce(s) Supporting Document(s) SARS-COV-2 GLEN [facility] Not DetectedReference range: Not Detecte d This nucleic acid amplification test was developed and its performance characteristics determined by [facility]. Nucleic acid amplification tests include PCR and TMA. This test has not been FDA cleared or approved. This test has been authorized by FDA under an Emergency Use Authorization (EUA). This test is only authorized for the duration of time the declaration that circumstances exist justifying the authorization of the emergency use of in vitro diagnostic tests for detection of SARS-CoV-2 virus and/or diagnosis of COVID-19 infection under section 564(b)(1) of the Act, 21 U.S.C. 360bbb-3(b) (1), unless the authorization is terminated or revoked sooner. When diagnostic testing is negative, the possibility of a false negative result should be considered in the context of a patient's recent exposures and the presence of clinical signs and symptoms consistent with COVID- 19. An individual without symptoms of COVID- 19 and who is not shedding SARS -CoV-2 virus would expect to have a negative (not detected) result in this assay. Performed At: RN [facility] [address] [id number] Sawyer Weinstein MD Ph:[phone] ID Date Data Source [id number] 03/02/2020 01:35:59 PM EDT [facility] NT INFORMATIONPatient MRN Name Date of Age Gend*PT [id number] Sj Soler 1950 69 years M OPPT Location Admission Date/Time Visit ID Attending Provider --- --- --- George Iraheta MD([id number]) EPI ID CSN Admitting Provider [id number] ---OUTPATIENT / OBSERVATIONAL SURGICAL OR INVASIVE PROCEDUREName: Sj Soler : 1950 Sex: male Care Provider: Joseph LOVINGending Physician: Dr. Chava Iraheta.HISTORY OF PRESENT ILLNESS: This is a 69 years old white male who presents withlongstanding history of right knee pain that has progressively getting worse forthe past 1 year. Patient states he underwent right knee meniscectomy in 1978and right knee arthroscopy in 1979. The pain is nonradiating, and aggravateswith using stairs, walking, kneeling and squatting. He underwent cortisoneinjections in the past which failed to alleviate his symptoms.Nothing improvespain. Right knee x-ray revealed lkzq-ir-tnml contact. Subsequently he wasreferred to Dr. Chava Iraheta for surgical intervention, all options were discussedand he has elected to undergo ARTHROPLASTY, KNEE, TOTAL RIGHT on 03/10/2020.PAST MEDICAL HISTORY:Past Medical History:Diagnosis Date Abdominal hernia Atrial fibrillation Benign tumor of parotid gland right Bowel obstruction W/INFECTION Bradycardia Colon cancer 2004 s/p surgery Coronary artery disease f/u by Dr. Tovar Diabetes type 2 MINTO (hard of hearing) Hyperlipidemia Hypertension Kidney stones Sleep apnea CPAP SSS (sick sinus syndrome) Steatohepatitis Unilateral primary osteoarthritis, right kneePAST SURGICAL HISTORY:Past Surgical History:Procedure Laterality Date CARDIAC ELECTROPHYSIOLOGY STUDY AND ABLATION FOR AFIB COLONOSCOPY HEMICOLECTOMY 2003 INSERT / REPLACE / REMOVE PACEMAKER Left 2013 KIDNEY STONE Bilateral KNEE ARTHROSCOPY Right 1979 LAPAROSCOPIC SMALL BOWEL RESECTION AND REPAIR MENISCECTOMY Right 1978 PAROTID TUMOR REMOVAL Right 2002 VASECTOMY VENTRAL HERNIA REPAIRALLERGIES:AllergiesAllergen Reactions Bee Venom Anaphylaxis Hornet Venom Anaphylaxis Wasp Venom AnaphylaxisMEDICATIONS:Prior to Admission medicationsMedication Sig Start Date End Date Taking? Authorizing Providerallopurinol (ZYLOPRIM) 100 MG tablet Take 100 mg by mouth nightly HistoricalProvider, GurpreetmLODIPine- benazepril (LOTREL) 10-40 MG per capsule Take 1 capsule by mouthnightly Historical Provider, GURPREETpixaban (ELIQUIS) 5 MG TABS tablet Take 5 mg by mouth 2 (two) times a dayHistorical Provider, beta carotene w/ C and E mineral (OCUVITE) tablet Take 1 tablet by mouth nightlyHistorical Provider, Ertugliflozin L-PyroglutamicAc (STEGLATRO) 15 MG TABS Take 15 mg by mouth dailyHistorical Provider, ezetimibe-simvastatin (VYTORIN) 10-20 MG per tablet Take 1 tablet by mouth 3(three) times a week on Mon, Sat, Sat Historical Provider, glimepiride (AMARYL) 4 MG tablet Take 8 mg by mouth every morning beforebreakfast Historical Provider, Isabellaetoprolol succinate (TOPROL-XL) 25 MG 24 hr tablet Take 50 mg by mouth dailyHistorical Provider, MDmetoprolol succinate (TOPROL-XL) 25 MG 24 hr tablet Take 25 mg by mouth nightlyHistorical Provider, ISSAITagliptin-metFORMIN HCl ER (JANUMET XR) 50-1000 MG TB24 Take 2 tablets bymouth nightly Historical Provider, Gurpreetspirin EC 81 MG EC tablet Take 1 tablet (81 mg total) by mouth daily 02/19/2010 Vu Tovar MDELIQUIS 5 MG TABS tablet TAKE 1 TABLET BY MOUTH TWICE A DAY 01/31/20 03/02/20Vu Tovar MDezetimibe (ZETIA) 10 MG tablet Take 10 mg by mouth 03/02/20 HistoricalProvider, MDMultiple Vitamins-Minerals (OPTIVITE P.M.T.) TABS OPTIVITE P.M.T. TABS 03/02/20Historical Provider, Issaimvastatin (ZOCOR) 20 MG tablet SIMVASTATIN 20 MG TABS 03/02/20 HistoricalProvider, ISSATEGLATRO 15 MG TABS Take 1 tablet by mouth daily 11/18/19 03/02/20 HistoricalProvider, MDSocial Hist oryTobacco Use Smoking status: Former Smoker Packs/day: 0.50 Years: 24.00 Pack years: 12.00 Types: Cigarettes Last attempt to quit: 2003 Years since quittin.7 Smokeless tobacco: Never UsedSubstance Use Topics Alcohol use: Never Frequency: Never Drug use: NeverFamily HistoryProblem Relation Age of Onset Hypertension Mother Healthy, No Significant History Father Malig Hyperthermia Neg HxREVIEW OF SYSTEMS:Respiratory: Denies any shortness of breath, cough, yellow sputum production orwheezing.Cardiovascular: Denies any chest pain, pressure or tightness. Denies anyparoxysmal nocturnal dyspnea or orthopnea.GI: Denies nausea, vomiting, diarrhea, constipation or melena.Neurologic: Denies any numbness, tingling, tremors or syncope.Vascular: Denies any edema. Denies claudication.PHYSICAL EXAM:GENERAL: He is a 69 years old, pleasant white male, in no acute distress at timeof examination. Vitals on arrival to the office are BP 140/68 (BP Location:Right upper arm, Patient Position: Sitting) | Pulse 63 | Ht 1.676 m (5' 6") |Wt (!) 110 kg (242 lb 8 oz) | SpO2 96% | BMI 39.14 kg/m Body mass index is39.14 kg/m ..Skin is pink, warm, and dry.NECK: He has a grade 1 airway. Neck is supple, midline, without cervicaladenopathy. No thyromegaly. No carotid bruits.MENTAL / NEUROLOGICAL STATUS: XLTl5DXRVA: Clear to auscultation. No wheezes, rhonchi or crackles.HEART: Rate rhythm regular. S1, S2. No murmur, rub or gallop. Left chest wallpacemaker intact.ABDOMEN: Bowel sounds positive times four. Soft, non tender. No reboundtenderness. No hepatosplenomegaly. Negative CVAT. Very large abdominal hernia,nontender to palpation.EXTREMITIES: Pulses are symmetrical. Trace edema bilateral ankles.OPERATIVE SITE: Right knee without rashes or l esions.Anesthesia complications: DeniesCS Frailty Scale :: 3/10 Managing Well (medical problems are well controlled,but are not regularly active beyond routine walking).ASSESSMENT: Primary Diagnosis/Indication: Unilateral primary osteoarthritis,right knee.PLAN: Procedure:1. ARTHROPLASTY, KNEE, TOTAL RIGHT.2. Per Dr. Tovar infant babysitter's note dated 02/20/2020 "he is considered to be atlow cardiovascular risk for his surgery.03/02/2020 1:35 Favio De La Torre, DAMIENThis document or parts of this document, were dictated using [employer] speaking software. A reasonable attempt at proofreading has beenmade to minimize errors. Please call with any questions or corrections. Name Value Range Interpretation Code Description Data Klarissa rce(s) Supporting Document(s) ID Date Data Source [id number] 03/03/2020 11:14:40 AM EDT [facility] SPECIMEN DESCRIPTION MIDSTREAM UR INE,CLEAN CATCHCULTURE RESULTS NO GROWTHREPORT STATUS FINAL 03/03/2020 Name Value Range Interpretation Code Description Data Klarissa rce(s) Supporting Document(s) ID Date Data Source [id number] 03/02/2020 02:53:51 PM EDT [facility] Name Value Range Interpretation Code Description Data Klarissa rce(s) Supporting Document(s) COLOR [facility] APPEARANCE [facility] SPEC GRAV URINE 1.036 (1.003-1.030) H [facility] PH URINE 5.0 (5.0-7.5) [facility] LEUK ESTERASE (NEG) [facility] NITRITE URINE (NEG) [facility] PROTEIN URINE (NEG) A [facility] GLUCOSE URINE 3+ (NEG) A [facility] KETONE URINE (NEG) [facility] UROBILINOGEN 0.2 mg/dL (0-1.0) [facility] BILIRUBIN URINE (NEG) [facility] BLOOD/HGB URINE (NEG) [facility] EPITHELIAL CELLS (NEG) [facility] HYALINE CASTS 0.6 [LPF] (0-5) [facility] BACTERIA (NEG) [facility] URINE WBC 0.4 [HPF] (0-8) [facility] URINE RBC 0.3 [HPF] (0-3) [facility] ID Date Data Source [id number] 03/02/2020 06:20:57 PM EDT [facility] Name Value Range Interpretation Code Description Data Klarissa rce(s) Supporting Document(s) HEMOGLOBIN A1C @ 6.7 % (4.0-6.0) H [facility] Performed using Siemens [place] immunoassa y.Care must be taken when interpreting [id number] in patients with a hemoglobin variantor decreased erythrocyte lifespan. Values 5.7 - 6.4% suggest prediabetes.Values >=6.5% are diagnostic for diabetes.REFERENCE: DIABETES CARE 2018: 41(S13-S27). EST AVERAGE GLUCOSE 146 mg/dL [facility] ID Date Data Source [id number] 03/02/2020 06:11:16 PM EDT [facility] Name Value Range Interpretation Code Description Data Klarissa rce(s) Supporting Document(s) PT 10.7 s (9.2-11.9) [facility] INR 1.03 [facility] SUGGESTED THERAPEUTIC RANGES USING INR F ORSTABILIZED ANTICOAGULATED PATIENTS:STANDARD DOSE THERAPY INR 2.0-3.0 DVT, PE, PREVENT DVT OR EMBOLISMHIGH DOSE THERAPY INR 2.5-3.5 PREVENT EMBOLISM FROM MECHANICAL HEART VALVE ID Date Data Source [id number] 03/02/2020 06:32:54 PM EDT [facility] Name Value Range Interpretation Code Description Data Klarissa rce(s) Supporting Document(s) SODIUM 141 mmol/L (136-145) [facility] POTASSIUM 4.4 mmol/L (3.6-5.2) [facility] CHLORIDE 108 mmol/L (100-108) [facility] CO2 26 mmol/L (22-31) [facility] ANION GAP 7 mmol/L (7-16) [facility] UREA NITROGEN 11 mg/dL (7-24) [facility] CREATININE 0.73 mg/dL (0.80-1.30) L [facility] BUN/CREAT RATIO 15.1 RATIO (10.0-20.0) [facility] GLUCOSE 94 mg/dL (70-99) [facility] CALCIUM 9.2 mg/dL (8.4-10.2) [facility] TOTAL PROTEIN 7.8 g/dL (6.4-8.2) [facility] ALBUMIN 3.8 g/dL (3.2-4.5) [facility] GLOBULIN 4.0 g/dL (2.7-4.3) [facility] ALB/GLOB RATIO 1.0 RATIO [facility] ALKALINE PHOSPHATASE 86 U/L (45-117) [facility] BILIRUBIN,TOTAL 0.6 mg/dL (0.0-1.0) [facility] PLEASE NOTE:Total bilirubin results may be falselyelevated in patients taking Eltrombopag. AST (SGOT) 30 U/L (11-39) [facility] ALT (SGPT) 36 U/L (12-78) [facility] GFR >60 ml/min/1.73m2 (>59) [facility] GFR ( AMER) >60 ml/min/1.73m2 (>59) [facility] GFR INTERPRETATION [facility] --NORMAL KIDNEY FUNCTION OR MILD DISEASE - GFR >OR= 60CHRONIC KIDNEY DISEASE - GFR 15 - 59RENAL FAILURE - GFR <15 Est. GFR calculation based on the MDRDstudy equation, which assumes a steadystate for creatinine. Est. GFR should notbe used for medication dosing. ID Date Data Source [id number] 03/03/2020 10:43:55 AM EDT [facility] Name Value Range Interpretation Code Description Data Klarissa rce(s) Supporting Document(s) SPECIMEN DESCRIPTION [facility] STAPH SCREEN RESULTS (ONEGSA) [facility] COMMENT [facility] GENE TO DETECT STAPH AUREUS. (2) RT-P CR WAS PERFORMED FOR THE mecA AND SCCmec GENES TO DETECT METHICILLIN RESISTANCE IN STAPH AUREUS. ID Date Data Source [id number] 02/27/2020 04:32:43 PM EDT [facility] Name Value Range Interpretation Code Description Data Klarissa rce(s) Supporting Document(s) &PDF [facility] KZOIFs8zXjOCSpXq15/QSXzdVYStf4RvHUikWRi1NChxXFXoK9LoaLbhRP9RX2veX1UJFAoCAlYIZF5v yKE [file] Psm3IU+DXaG7vqNgovAd3FC/8AUC9JQv8qbSR+Q78FGCB82lJd3489hJ+0a0gWN6uqlFfB403AlZ/GAUGE CHECKER [file] ICAgICAgICAgICAgICAgICAgICAgICAgICAgICAgIC AgICAgICAgICAgICAgICAgICAgICAgICAgICAgICAgICAgDQogICAgICAgICAgICAgICAgICAgICAgIC AgICAgICAgICAgICAgICAgICAgICAgICAgICAgICAgICAgICAgICAgICAgICAgICAgICAgICAgICAgIC AgICAgICAgICAgICAgICAgDQogICAgICAgICAgICAg ICAgICAgICAgICAgICAgICAgICAgICAgICAgICAgICAgICAgICAgICAgICAgICAgICAgICAgICAgICAg ICAgICAgICAgICAgICAgICAgICAgICAgICAgDQogICAgICAgICAgICAgICAgICAgICAgICAgICAgICAg ICAgICAgICAgICAgICAgICAgICAgICAgICAgICAgIC AgICAgICAgICAgICAgICAgICAgICAgICAgICAgICAgICAgICAgDQogICAgICAgICAgICAgICAgICAgIC AgICAgICAgICAgICAgICAgICAgICAgICAgICAgICAgICAgICAgICAgICAgICAgICAgICAgICAgICAgIC AgICAgICAgICAgICAgICAgICAgDQogICAgICAgICAg ICAgICAgICAgICAgICAgICAgICAgICAgICAgICAgICAgICAgICAgICAgICAgICAgICAgICAgICAgICAg ICAgICAgICAgICAgICAgICAgICAgICAgICAgICAgDQogICAgICAgICAgICAgICAgICAgICAgICAgICAg ICAgICAgICAgICAgICAgICAgICAgICAgICAgICAgIC AgICAgICAgICAgICAgICAgICAgICAgICAgICAgICAgICAgICAgICAgDQogICAgICAgICAgICAgICAgIC AgICAgICAgICAgICAgICAgICAgICAgICAgICAgICAgICAgICAgICAgICAgICAgICAgICAgICAgICAgIC AgICAgICAgICAgICAgICAgICAgICAgDQogICAgICAg ICAgICAgICAgICAgICAgICAgICAgICAgICAgICAgICAgICAgICAgICAgICAgICAgICAgICAgICAgICAg ICAgICAgICAgICAgICAgICAgICAgICAgICAgICAgICAgDQogICAgICAgICAgICAgICAgICAgICAgICAg ICAgICAgICAgICAgICAgICAgICAgICAgICAgICAgIC TgLDGoSAYpJGFzDRFfBQOpMLSvJSJxBXSwACVzUFQuSEXjBDCnKSPjDBSmKLf0Y3seDOHuQDPxWF9sVY d3Jz8+XKxFDpBrHOT4hiNizM6ZRG7hm0KxAFhvSEAua2DjVXs5LS1VFVRiIUzkJH0NMCgyqa8QALDvMK DihHTTk8ysAuZrAZN4LAJkJxunQE9DJQPuU4uvpqKp FGSzLQVWLFxsHDORHTzeDQJKSR9EOkGhF4LdzS58XXVGWt6+HVfuabNrMljJDsP0MQRdi2NsHKp8TQ9E PTBrDFpxKW9GHLKueT4xYXqmOJ8OLyLiIeRuGICPLfZaC43wdFNaVNb6Q4CwJxUyUKBgHwtwSIFjDCup TmFtZXMgWyBdDQogID4+ID4+LBwwRW3ASXdotsXpYX IxKu0YOQEdTXR7JMAbyGGiOlFvJKNWDJunRE3MnNZgNPU0zB7qOHcqBAJdWMTeM0vXEvMtgMobCV47qI wgbnVsbCBdDQo+Be7NCU0gs9DrOXs2fiWmAFtlCFQ7HLmxETXxXHZmSBLiIUF1AYZ0NHHVIcCyOOIoNW TmMNiaIUYmPPDopp4RRFGqBJI9CJFoCAHsQFQcOFZx KAhxENSlZDt4ZZG4XDHbGVYjPJ2RIdQoGIKnUSInNUObIOOoNJLvfq1ROQUkACRtHkP2VTKySSWpTPMt KYesUOZqGQGyUHA4LFQcZPAuUW8ILqLePGGpCJOoPqRkIDWoMJVbac7INHIhJDJfQzRvBIJyTTWaOOIb DKynAFRqLFJ2EByaQCXzYZVfXI6JDuUzEQIaRMfsRF cqSHBzCVMxlg1CXYFxBLQrWBR6CzRzHERiISUuECblLZTjNSQ0HPM2JFFdIZQyMN8UOkEaUPXpZWr9Am poRPPxHFYvyu5RZPSpBRSmDHD6OxOyIQBsSSSgBPnePIOeIOA0Wgb1PFRjHSTlPV2TAqNrBJUnBKk7DR FhLQFgCXKdey6FVRCqNIYhYGg4QqPlSGNkPWYxECbb FSSdJBE0OFF4KMZaBVYjDE0ZQdCdNWZkGUKlZmOgEEEdQZYvwj4SBBGfDDYmXRBaGWHsNOFuPZKqFWio YSQqXLJ6JyD8CFEwLZLsBU9GUhRvAKOvOXS8FHGoWNEqZWObss7UFRArVMKlBeu4PGBvMWRzJSTuBBfm VOKeLYU0WXZ3UWGyYLYhFR3BAiKpKWQvMdX9HNCiXE BbHCRjuw8JGXWpIWXrVYk0QPFkRCLwZUMtLXuyJSGgSQV9RBw5RWTlJTKnTB4PQmSpBNDeVZOcZNMqXD KxDJYsjz5KUTFuYHP5EQWdDkFvXKFmHJUbCFyvCMOaRIHlQHRzJTGxRUEsKP5KWsGfSMCaDrSjMPezWN NzQMBkmj8HIOIvVLA6DMhkYaQnLMVyXFDbCQieMHOx XEs7RRDiXQVxCKBkEP4NDeYwDLTuFGj2FQIxREEvQGUlnw7TDRIeVCAbGALgGmBvMBPmTLDdWGy1caGi sAScUTz0TG7NY1PgqlAxSuKSBl1Nt152AQS5FQEfIv0PD5qsMu9aEIAkRQUMOo9LHMp3UPVcYXQmTHg1 UaTePoDfKUByALarFFIzJUzjZ7V4CSK+WEk2AgA6DG EwTVZkKBNuRtElMVRoRZP0XnD2I6R9KHk8Kb8oJLFICa3+HIijeYAstRbpDPQYPfFgHAHoVg3GGMZFE4 YNCg== ID Date Data Source [id number] 02/29/2020 01:32:07 PM EDT [facility], PCName: Sj SolerDOB: 1Provider: Terrie IrahetaOS: 02/24/2020 Reason For VisitSmariamakelsey Ryder is here for a history and physical. Surgery Description: RTKA. Expected DOS: 03/10/2020. Patient is retired. AssessmentREASON FOR VISIT:Upcoming right total knee replacement.This 69-year-old male has end-stage osteoarthritis of his right knee. It has progressed to the point where it significantly affects his quality of life in terms of walking, stairs, uneven surfaces, .etc. He is here with his . They drove down from [place].PAST MEDICAL HISTORY:Please see intake of 12/22/19. Atrial fibrillation, for which he is on Eliquis. Diabetes, essential hypertension, history of colon cancer, sleep apnea, kidney stones.PHYSICAL EXAMINATION:He is 5'6 and weighs 246 pounds, with a BMI of 39. He is alert, awake and oriented, with appropriate mood and affect. Lower extremities do not have significant edema. Pulses are fine. Sensory and motor are intact.Left knee motion is from 0 to about 125. The right knee has a healed medial arthrotomy incision. He can extend to just shy of extension and flex to about 115 to 120. He has varus alignment of 6 or 7, with 1+ medial laxity. His hip moves normally Skin is fine. X-RAYS:Standing AP, lateral and Merchant's views of the right knee were ordered, taken and interpreted by me today. They look quite good,if you like arthritis. He has tricompartmental arthritis with [id number] disease, narrowing of all three compartments, with osteophytes and sclerosis.IMPRESSION:End-stage osteoarthritis of the right knee, for a right total knee replacement We talked about the anesthesia, time in the hospital and the importance of physical therapy. He has an ice machine. We talked about risks, including, but not limited to,remote chance of infection, blood clot, stiffness and loosening, and medical issues. He will stop the Eliquis five days before surgery and take aspirin. We will start half of the dose for one week after surgery, then he will go back on his regular dose. He read and signed the permit. I will see him there. Plan X-Ray I Knee - 3 views (XRays were ordered, obtained and interpreted today in theoffice. Indication: akilah n/dysfunction.); Status:Complete; Done: 24Feb2020 Perform:SOS11; Due:09Mar2020; Last Updated By:Renetta Solares; 02/24/2020 1:10:15 PM;Ordered; For:Right knee pain; Ordered By:George Iraheta;Weight Bearing Status : Weight bearingLaterality: : Right Signatures Electronically signed by : Cyn Combs, ; Feb 25 2020 10:39AM EST Electronically signed by : George Iraheta M.D.; Feb 29 2020 1:32PM EST Name Value Range Interpretation Code Description Data Klarissa rce(s) Supporting Document(s) Procedure Social History Code Duration Value Status Description Data Source(s ) Smoking 02/23/2021 12:00:00 AM EDT Former Smoker completed Former Smoker eCW1 ([facility]) Smoking 02/02/2021 12:00:00 AM EDT - 05/20/2003 12:00:00 AM EST Patient is a former smoker completed Patient is a former smoker MEDENT ([facility] ) Smoking 01/09/2021 12:00:00 AM EDT Patient is a former smoker completed Patient is a former smoker MEDENT ([facility] ) Alcohol intake 11/02/2020 12:00:00 AM EDT Lifetime non-drinker (finding) completed Lifetime non-drinker (finding) [facility] Smoking 10/25/2020 12:00:00 AM EDT Former Smoker completed Former Smoker eCW1 ([facility]) Smoking 10/25/2020 12:00:00 AM EDT Former Smoker completed Former Smoker eCW1 ([facility]) Smoking 10/25/2020 12:00:00 AM EDT Former Smoker completed Former Smoker eCW1 ([facility]) Smoking 10/25/2020 12:00:00 AM EDT Former Smoker completed Former Smoker eCW1 ([facility]) Alcohol intake 03/11/2020 12:00:00 AM EDT Never completed [facility] Cigarette pack-years 03/11/2020 12:00:00 AM EDT UNK completed [facility] Cigarettes smoked current (pack per day) - Reported 03/11/20 12:00:00 AM EDT UNK completed [facility] Smoking 03/11/2020 12:00:00 AM EDT Former smoker completed Former smoker [facility] Smoking 03/03/2020 12:00:00 AM EDT Former Smoker completed Former Smoker eCW1 ([facility]) Smoking 03/03/2020 12:00:00 AM EDT Former Smoker completed Former Smoker eCW1 ([facility]) Smoking 03/03/2020 12:00:00 AM EDT Former Smoker completed Former Smoker eCW1 ([facility]) Smoking 03/03/2020 12:00:00 AM EDT Former Smoker completed Former Smoker eCW1 ([facility]) Smoking 03/03/2020 12:00:00 AM EDT Former Smoker completed Former Smoker eCW1 ([facility]) Smoking 03/03/2020 12:00:00 AM EDT Former Smoker completed Former Smoker eCW1 ([facility]) Smoking 03/03/2020 12:00:00 AM EDT Former Smoker completed Former Smoker eCW1 ([facility]) Smoking 03/03/2020 12:00:00 AM EDT Former Smoker completed Former Smoker eCW1 ([facility]) Smoking 03/03/2020 12:00:00 AM EDT Former Smoker completed Former Smoker eCW1 ([facility]) Smoking 03/03/2020 12:00:00 AM EDT Former Smoker completed Former Smoker eCW1 ([facility]) Smoking 02/19/2020 12:00:00 AM EDT Former smoker completed Former smoker [facility] Tobacco use and exposure 02/19/2020 12:00:00 AM EDT Never used co mpleted Never used [facility] Cigarette pack-years 02/19/2020 12:00:00 AM EDT UNK completed [facility] Cigarettes smoked current (pack per day) - Reported 02/19/20 12:00:00 AM EDT UNK completed [facility] Vital Signs ID Date Data Source UNK Name Value Range Interpretation Code Description Data Source(s) Body weight 239 [lb_av] 239 [lb_av] eCW1 ([facility]) Body height [in_i] eCW1 ([facility]) Body mass index (BMI) [Ratio] 40.39 kg/m2 40.39 kg/m2 eCW1 ([facility]) Heart rate 72 /min 72 /min eCW1 ([facility]) Respiratory rate 18 /min 18 /min eCW1 ([facility]) Body temperature 97.6 [degF] 97.6 [degF] eCW1 ( [facility]) Systolic blood pressure 120 mm[Hg] 120 mm[Hg] e CW1 ([facility]) Diastolic blood pressure 73 mm[Hg] 73 mm[Hg] eCW1 ([facility]) Systolic blood pressure 128 mm[Hg] 128 mm[Hg] M EDENT ([facility] ) Diastolic blood pressure 76 mm[Hg] 76 mm[Hg] MEDENT ([facility]) Body height 67 [in_i] 67 [in_i] MEDENT ([facility]) 5'7" Body weight 245.00 [lb_av] 245.00 [lb_av] MEDEN T ([facility]) Body mass index (BMI) [Ratio] 38.4 kg/m2 38.4 k g/m2 [facility] ([facility]) [place] body weight 148 [lb_av] 148 [lb_av] MEDEN T ([facility]) Body weight 111.132 kg 111.132 kg [facility] ([facility]) Body surface area Derived from formula 2.20 m2 2.20 m2 [facility] ([facility]) Body weight 250.00 [lb_av] 250.00 [lb_av] [facility] T [facility] Heart rate 60 /min 60 /min [facility] Body height 65.75 [in_i] 65.75 [in_i] [facility] ([facility] 5'5.75" Systolic blood pressure 130 mm[Hg] 130 mm[Hg] M EDENT ([facility]) Diastolic blood pressure 75 mm[Hg] 75 mm[Hg] [facility] ([facility]) Oxygen saturation in Arterial blood by Pulse oximetry 96 % 96 % [facility] ([facility]) Body mass index (BMI) [Ratio] 40.7 kg/m2 40.7 k g/m2 [facility] ([facility]) Systolic blood pressure 130 mm[Hg] 130 mm[Hg] M EDENT ([facility]) Body mass index (BMI) [Ratio] 38.8 kg/m2 38.8 k g/m2 MED[facility] ([facility]) [place] body weight 148 [lb_av] 148 [lb_av] MEDEN T ([facility]) Body weight 112.493 kg 112.493 kg MED[facility] ([facility]) Body surface area Derived from formula 2.22 m2 2.22 m2 [facility] ([facility]) Diastolic blood pressure 70 mm[Hg] 70 mm[Hg] MEDENT ([facility]) Heart rate 60 /min 60 /min MEDENT ([facility]) Oxygen saturation in Arterial blood by [facility]ulse oximetry 96 % 96 % [facility] Body height 67 [in_i] 67 [in_i] MEDENT ([facility]) 5'7" Body weight 248.00 [lb_av] 248.00 [lb_av] MEDEN T ([facility]) Body mass index (BMI) [Ratio] 40.7 kg/m2 40.7 k g/m2 [facility] ([facility]) Body weight 250.25 [lb_av] 250.25 [lb_av] MEDEN T ([facility]) Body height 65.75 [in_i] 65.75 [in_i] [facility] ([facility] 5'5.75" Heart rate 76 /min 76 /min [facility] Respiratory rate 18 /min 18 /min [facility] ( [facility]) Systolic blood pressure 135 mm[Hg] 135 mm[Hg] M EDENT ([facility]) Diastolic blood pressure 76 mm[Hg] 76 mm[Hg] [facility] ([facility]) Systolic blood pressure 130 mm[Hg] 130 mm[Hg] [facility] Diastolic blood pressure 78 mm[Hg] 78 mm[Hg] [facility] Heart rate 61 /min 61 /min [facility] Respiratory rate 18 /min 18 /min [facility] Body weight 111.676 kg 111.676 kg [facility] Body mass index (BMI) [Ratio] 39.74 kg/m2 39.74 kg/m2 [facility] Oxygen saturation in Arterial blood by Pulse oximetry 96 % 96 % [facility] Body weight 242 [lb_av] 242 [lb_av] eCW1 ([facility]) Body height [in_i] eCW1 ([facility]) Body mass index (BMI) [Ratio] 40.89 kg/m2 40.89 kg/m2 W1 ([facility]) Heart rate 78 /min 78 /min eCW1 ([facility]) Respiratory rate 18 /min 18 /min eCW1 ([facility]) Body temperature 97.3 [degF] 97.3 [degF] eCW1 ( [facility]) Systolic blood pressure 129 mm[Hg] 129 mm[Hg] e CW1 ([facility]) Diastolic blood pressure 76 mm[Hg] 76 mm[Hg] eCW1 ([facility]) Systolic blood pressure 127 mm[Hg] 127 mm[Hg] [facility] Diastolic blood pressure 78 mm[Hg] 78 mm[Hg] [facility] Heart rate 60 /min 60 /min [facility] Body temperature 36.56 Lorin 36.56 Lorin [facility] Respiratory rate 18 /min 18 /min [facility] Oxygen saturation in Arterial blood by Pulse oximetry 93 % 93 % [facility] Body height 167.6 cm 167.6 cm [facility] Body weight 109.77 kg 109.77 kg [facility] Body mass index (BMI) [Ratio] 39.06 kg/m2 39.06 kg/m2 [facility] Systolic blood pressure 124 mm[Hg] 124 mm[facility]Hg] [facility] Diastolic blood pressure 80 mm[Hg] 80 mm[Hg] [facility] ([facility]) Heart rate 69 /min 69 /min [facility] ([facility]) Oxygen saturation in Arterial blood by Pulse oximetry 99 % 99 % [facility] ([facility]) Room Air Body height 67 [in_i] 67 [in_i] [facility] ([facility]) 5'7" Body weight 245.00 [lb_av] 245.00 [lb_av] [facility] Body mass index (BMI) [Ratio] 38.4 kg/m2 38.4 k g/m2 [facility] ([facility]) [place] body weight 148 [lb_av] 148 [lb_av] [facility] Body weight 111.132 kg 111.132 kg [facility] ([facility]) Body surface area Derived from formula 2.20 m2 2.20 m2 [facility] ([facility]) Patient Treatment Plan of Care Planned Activity Planned Date Details Description Data Source (s) [place]-3 Acid Ethyl Esters (SKILLED NURSING) 1000 MG Oral Capsule 12:00:00 AM EDT eCW1 ([facility]) [place]-3 Acid Ethyl Esters (SKILLED NURSING) 1000 MG Oral Capsule 12:00:00 AM EDT eCW1 ([facility]) [place]-3 Acid Ethyl Esters (SKILLED NURSING) 1000 MG Oral Capsule 12:00:00 AM EDT eCW1 ([facility]) [place]-3 Acid Ethyl Esters (SKILLED NURSING) 1000 MG Oral Capsule 12:00:00 AM EDT eCW1 ([facility]) apixaban 5 MG Oral Tablet 11/02/2020 12:00:00 AM EDT [facility] 0.3 ML Epinephrine 1 MG/ML Auto-Injector [Epipen] 10/25/2020 12: 00:00 AM EDT eCW1 ([facility]) 0.3 ML Epinephrine 1 MG/ML Auto-Injector [Epipen] 10/25/2020 12: 00:00 AM EDT eCW1 ([facility]) 0.3 ML Epinephrine 1 MG/ML Auto-Injector [Epipen] 10/25/2020 12: 00:00 AM EDT eCW1 ([facility]) 0.3 ML Epinephrine 1 MG/ML Auto-Injector [Epipen] 10/25/2020 12: 00:00 AM EDT eCW1 ([facility]) 0.3 ML Epinephrine 1 MG/ML Auto-Injector [Epipen] 10/25/2020 12: 00:00 AM EDT eCW1 ([facility]) Allopurinol 100 MG Oral Tablet 06/09/2020 12:00:00 AM EST eCW1 ([facility]) Allopurinol 100 MG Oral Tablet 06/09/2020 12:00:00 AM EST eCW1 ([facility]) Allopurinol 100 MG Oral Tablet 06/09/2020 12:00:00 AM EST eCW1 ([facility]) Allopurinol 100 MG Oral Tablet 06/09/2020 12:00:00 AM EST eCW1 ([facility]) Allopurinol 100 MG Oral Tablet 06/09/2020 12:00:00 AM EST eCW1 ([facility]) Allopurinol 100 MG Oral Tablet 06/09/2020 12:00:00 AM EST eCW1 ([facility]) Allopurinol 100 MG Oral Tablet [Zyloprim] 06/01/2020 12:00:00 AM ES T eCW1 ([facility]) Allopurinol 100 MG Oral Tablet [Zyloprim] 06/01/2020 12:00:00 AM ES T eCW1 ([facility]) Allopurinol 100 MG Oral Tablet [Zyloprim] 06/01/2020 12:00:00 AM ES T eCW1 ([facility]) Allopurinol 100 MG Oral Tablet [Zyloprim] 06/01/2020 12:00:00 AM ES T eCW1 ([facility]) Allopurinol 100 MG Oral Tablet [Zyloprim] 06/01/2020 12:00:00 AM ES T eCW1 ([facility]) Allopurinol 100 MG Oral Tablet [Zyloprim] 06/01/2020 12:00:00 AM ES T eCW1 ([facility]) Allopurinol 100 MG Oral Tablet [Zyloprim] 06/01/2020 12:00:00 AM ES T eCW1 ([facility]) Allopurinol 100 MG Oral Tablet [Zyloprim] 06/01/2020 12:00:00 AM ES T eCW1 ([facility]) Allopurinol 100 MG Oral Tablet [Zyloprim] 06/01/2020 12:00:00 AM ES T eCW1 ([facility]) Allopurinol 100 MG Oral Tablet [Zyloprim] 06/01/2020 12:00:00 AM ES T eCW1 ([facility]) Allopurinol 100 MG Oral Tablet [Zyloprim] 06/01/2020 12:00:00 AM ES T eCW1 ([facility]) Allopurinol 100 MG Oral Tablet [Zyloprim] 06/01/2020 12:00:00 AM ES T eCW1 ([facility]) Allopurinol 100 MG Oral Tablet [Zyloprim] 06/01/2020 12:00:00 AM ES T eCW1 ([facility]) sennosides, SKILLED NURSING 8.6 MG Oral Tablet 03/11/2020 12:00:00 AM EDT [facility] apixaban 5 MG Oral Tablet 03/11/2020 12:00:00 AM EDT [facility] Oxycodone Hydrochloride 5 MG Oral Tablet 03/11/2020 12:00:00 AM EDT [facility] Amlodipine 10 MG Oral Tablet 03/03/2020 12:00:00 AM EDT eCW1 ([facility]) Amlodipine 10 MG Oral Tablet 03/03/2020 12:00:00 AM EDT eCW1 ([facility]) Amlodipine 10 MG Oral Tablet 03/03/2020 12:00:00 AM EDT eCW1 ([facility]) Amlodipine 10 MG Oral Tablet 03/03/2020 12:00:00 AM EDT eCW1 ([facility]) Amlodipine 10 MG Oral Tablet 03/03/2020 12:00:00 AM EDT eCW1 ([facility]) Amlodipine 10 MG Oral Tablet 03/03/2020 12:00:00 AM EDT eCW1 ([facility]) Amlodipine 10 MG Oral Tablet 03/03/2020 12:00:00 AM EDT eCW1 ([facility]) Amlodipine 10 MG Oral Tablet 03/03/2020 12:00:00 AM EDT eCW1 ([facility]) Amlodipine 10 MG Oral Tablet 03/03/2020 12:00:00 AM EDT eCW1 ([facility]) Amlodipine 10 MG Oral Tablet 03/03/2020 12:00:00 AM EDT eCW1 ([facility]) Amlodipine 10 MG Oral Tablet 03/03/2020 12:00:00 AM EDT eCW1 ([facility]) Amlodipine 10 MG Oral Tablet 03/03/2020 12:00:00 AM EDT eCW1 ([facility]) Amlodipine 10 MG Oral Tablet 03/03/2020 12:00:00 AM EDT eCW1 ([facility]) Amlodipine 10 MG Oral Tablet 03/03/2020 12:00:00 AM EDT eCW1 ([facility]) Amlodipine 10 MG Oral Tablet 03/03/2020 12:00:00 AM EDT eCW1 ([facility]) Aspirin 81 MG Delayed Release Oral Tablet 02/20/2020 12:00:00 AM ED T [facility] apixaban 5 MG Oral Tablet [Eliquis] 01/31/2020 12:00:00 AM EDT [facility] STEGLATRO 15 MG TABS 11/18/2019 12:00:00 AM EDT [facility] Simvastatin 20 MG Oral Tablet [facility] ezetimibe 10 MG Oral Tablet [facility] 24 HR metoprolol succinate 25 MG Extended Release Oral Tablet [facility] apixaban 5 MG Oral Tablet [facility] Simvastatin 20 MG Oral Tablet [facility] Ascorbic Acid 60 MG / Beta Carotene 5000 UNT / Copper Sulfate 40 MG / dl-alpha tocopheryl acetate 30 UNT / Sodium Selenite 0.04 MG / Zinc Oxide 40 MG Oral Tablet [facility] ezetimibe 10 MG Oral Tablet [facility]
[2021-03-21] MEDS ORDERED: LIDOCAINE 2% 100MG/5ML SDV (FOR ANES.) As Ordered ONE (06:56)
[2021-03-21] MEDS ORDERED: propofoL 200 MG/20 ML VIAL As Ordered ONE (06:56)
[2021-03-21 08:35] VITALS: BP 128/67
--- NOTE | 2021-03-21 08:51 | ROOR ---
Patient Name: Sj Soler Procedure Date: 03/21/2021 7:39 AM Date of : 1950 Age: 70 Room: [facility] Gender: Male Note Status: Finalized Procedure: Colonoscopy Indications: High risk colon cancer surveillance: Personal history of colon cancer Providers: Ralph Tenorio MD Referring MD: Law Barillas MD Requesting Provider: Medicines: Monitored Anesthesia Care Complications: No immediate complications. Procedure: Pre-Anesthesia Assessment: - Prior to the procedure, a History and Physical was performed, and patient medications and allergies were reviewed. The patient is competent. The risks and benefits of the procedure and the sedation options and risks were discussed with the patient. All questions were answered and informed consent was obtained. Patient identification and proposed procedure were verified by the physician, the nurse and the anesthesiologist in the procedure room. Mental Status Examination: alert and oriented. Airway Examination: normal oropharyngeal airway and neck mobility. Respiratory Examination: clear to auscultation. CV Examination: normal. Prophylactic Antibiotics: The patient does not require prophylactic antibiotics. Prior Anticoagulants: The patient has taken Eliquis (apixaban), last dose was 2 days prior to procedure. ASA Grade Assessment: III - A patient with severe systemic disease. After reviewing the risks and benefits, the patient was deemed in satisfactory condition to undergo the procedure. The anesthesia plan was to use monitored anesthesia care (MAC). Immediately prior to administration of medications, the patient was re-assessed for adequacy to receive sedatives. The heart rate, respiratory rate, oxygen saturations, blood pressure, adequacy of pulmonary ventilation, and response to care were monitored throughout the procedure. The physical status of the patient was re-assessed after the procedure. The Colonoscope was introduced through the anus and advanced to the terminal ileum, with identification of the appendiceal orifice and IC valve. The colonoscopy was performed without difficulty. The patient tolerated the procedure well. The quality of the bowel preparation was good. The terminal ileum, ileocecal valve, appendiceal orifice, and rectum were photographed. Scope insertion time was 2 minutes. Scope withdrawal time was 9 minutes. The total duration of the procedure was 12 minutes. Findings: The perianal and digital rectal examinations were normal. The terminal ileum appeared normal. Two sessile polyps were found in the descending colon. The polyps were 5 to 8 mm in size. These polyps were removed with a cold snare. Resection and retrieval were complete. Verification of patient identification for the specimen was done by the physician and nurse using the patient's name, date and medical record number. Multiple small and large-mouthed diverticula were found in the left colon. There was no evidence of diverticular bleeding. Non-bleeding external and internal hemorrhoids were found during retroflexion. The hemorrhoids were medium-sized. Impression: - The examined portion of the ileum was normal. - Two 5 to 8 mm polyps in the descending colon, removed with a cold snare. Resected and retrieved. - Moderate diverticulosis in the left colon. There was no evidence of diverticular bleeding. - Non-bleeding external and internal hemorrhoids. Recommendation: - Patient has a contact number available for emergencies. The signs and symptoms of potential delayed complications were discussed with the patient. Return to normal activities tomorrow. Written discharge instructions were provided to the patient. - High fiber diet. - Continue present medications. - Resume Eliquis (apixaban) at prior dose tomorrow. Refer to primary physician for further adjustment of therapy. - Await pathology results. - Repeat colonoscopy in 3 - 5 years for surveillance based on pathology results. - Telephone GI clinic for pathology results in 2 weeks. - Return to primary care physician. - Return to GI clinic if persistent symptoms or new symptoms. Procedure Code(s): --- Professional --- 10688, Colonoscopy, flexible; with removal of tumor(s), polyp(s), or other lesion(s) by snare technique Diagnosis Code(s): --- Professional --- Z85.038, Personal history of other malignant neoplasm of large intestine K64.8, Other hemorrhoids K63.5, Polyp of colon K57.30, Diverticulosis of large intestine without perforation or abscess without bleeding CPT copyright 2019 [employer]. All rights reserved. The codes documented in this report are preliminary and upon energy efficiency finance manager review may be revised to meet current compliance requirements. Ralph Tenorio MD Ralph Tenorio MD 03/21/2021 8:50:26 AM Electronically signed by Ralph Tenroio MD Number of Addenda: 0 Note Initiated On: 03/21/2021 7:39 AM Estimated Blood Loss: Estimated blood loss was minimal.
== END 2021-03-21 09:00 | disposition home or self-care (01) ==
LOC: M SDC 06:49
PROVIDERS: ATTEND Internal Medicine Gastroenterology
DX: Z85.038 Personal history of other malignant neoplasm of large intestine (principal); K63.5 Polyp of colon; K57.30 Diverticulosis of large intestine without perforation or abscess without bleeding; K64.8 Other hemorrhoids; I10 Essential (primary) hypertension; I48.91 Unspecified atrial fibrillation; E78.5 Hyperlipidemia, unspecified; Z79.01 Long term (current) use of anticoagulants; Z95.0 Presence of cardiac pacemaker; E11.9 Type 2 diabetes mellitus without complications; Z79.84 Long term (current) use of oral hypoglycemic drugs; Z79.899 Other long term (current) drug therapy; G47.33 Obstructive sleep apnea (adult) (pediatric)

== ENCOUNTER → 2021-03-24 | Outpatient (REF) | payer MEDICARE ==
[~2021-03-24] MED LIST changes: -NS 1,000 ML IV ONE
[2021-03-24 12:21] LABS: ALBUMIN 3.8 GM/DL (3.2-5.2); ALT/SGPT 42 U/L (12-78); BILIRUBIN,TOTAL 0.5 MG/DL (0.2-1.0); BLOOD UREA NITROGEN 13 MG/DL (7-18); CALCIUM LEVEL 9.4 MG/DL (8.8-10.2); CARBON DIOXIDE LEVEL 25 MEQ/L (21-32); CHLORIDE LEVEL 104 MEQ/L (98-107); CHOLESTEROL LEVEL 133 MG/DL (<200); CREATININE FOR GFR 0.88 MG/DL (0.70-1.30); GLOMERULAR FILTRATION RATE > 60.0 (>49); GLUCOSE, FASTING 177 MG/DL (70-100); HDL CHOLESTEROL 33 MG/DL (>40); LDL CHOLESTEROL 22 MG/DL (<100); NON-HDL-C 100 MG/DL; POTASSIUM SERUM 4.5 MEQ/L (3.5-5.1); SODIUM LEVEL 139 MEQ/L (136-145); TOTAL PROTEIN 7.9 GM/DL (6.4-8.2); TRIGLYCERIDES LEVEL 391 MG/DL (<150)
[2021-03-24 12:46] LABS: CREATININE, URINE 64.1 MG/DL; MAU/CREAT RATIO 522.6 MCG/MG (0.0-30.0)
[2021-03-24 13:54] LABS: HEMOGLOBIN A1c 7.2 %
== END ==
LOC: M SFHCCLAY 07:31
PROVIDERS: ATTEND Family Medicine
DX: I10 Essential (primary) hypertension (principal); E11.21 Type 2 diabetes mellitus with diabetic nephropathy; E78.2 Mixed hyperlipidemia

== ENCOUNTER → 2022-01-18 | Outpatient (REF) | payer MEDICARE ==
[~2022-01-18] MED LIST changes: -AMLO10CA22; +AMLO10CA30
[2022-01-18 18:04] LABS: BLOOD UREA NITROGEN 10 MG/DL (7-18); CALCIUM LEVEL 9.1 MG/DL (8.8-10.2); CARBON DIOXIDE LEVEL 20 MEQ/L (21-32); CHLORIDE LEVEL 107 MEQ/L (98-107); CREATININE FOR GFR 0.74 MG/DL (0.70-1.30); GLOMERULAR FILTRATION RATE > 60.0 (>42); GLUCOSE, FASTING 174 MG/DL (70-100); POTASSIUM SERUM 4.5 MEQ/L (3.5-5.1); SODIUM LEVEL 137 MEQ/L (136-145)
[2022-01-18 19:26] LABS: HEMOGLOBIN A1c 6.7 %
== END ==
LOC: M SFHCCLAY 09:32
PROVIDERS: ATTEND Family Medicine
DX: E11.9 Type 2 diabetes mellitus without complications (principal)

== ENCOUNTER → 2022-01-25 | Outpatient (REF) | payer MEDICARE ==
[~2022-01-25] MED LIST changes: +EZET-15; -VYTO10TA18
[2022-01-25 18:13] LABS: FREE T4 0.8 NG/DL (0.76-1.46); THYROID STIMULATING HORMONE 2.77 uIU/ML (0.358-3.740)
== END ==
LOC: M SFHCCLAY 10:49
PROVIDERS: ATTEND Family Medicine
DX: R94.6 Abnormal results of thyroid function studies (principal)

== ENCOUNTER → 2022-08-27 | Outpatient (REF) | payer MEDICARE | LOC: M SFHCCAPE 16:43 | PROVIDERS: ATTEND Physician Assistant | DX: J22 Unspecified acute lower respiratory infection (principal) ==

== ENCOUNTER → 2022-11-22 | Outpatient (CLI) | payer MEDICARE | LOC: M CLY 09:47 | PROVIDERS: ATTEND Physician Assistant Medical | DX: M79.671 Pain in right foot (principal) ==

== ENCOUNTER → 2023-03-25 | Outpatient (REF) | payer MEDICARE ==
[2023-03-25 12:50] LABS: BASO % 0.5 % (0.0-1.0); EOS # 0.1 10^3/uL (0.0-0.5); EOS % 1.6 % (0.0-3.0); HEMATOCRIT 45.2 % (42.0-52.0); HEMOGLOBIN 14.9 g/dl (13.5-17.5); LYMPH # 1.5 10^3/uL (1.5-5.0); LYMPH % 23.3 % (24.0-44.0); MEAN CORPUSCULAR HEMOGLOBIN 33.1 pg (27.0-33.0); MEAN CORPUSCULAR VOLUME 100.4 fl (80.0-96.0); MONO # 0.8 10^3/uL (0.0-0.8); MONO % 11.9 % (2.0-8.0); NEUTROPHILS # 3.9 10^3/uL (1.5-8.5); NEUTROPHILS % 62.2 % (36.0-66.0); PLATELET COUNT, AUTOMATED 176 10^3/uL (150-450); WHITE BLOOD COUNT 6.3 10^3/uL (4.0-10.0)
[2023-03-25 13:06] LABS: ALBUMIN 3.9 G/DL (3.2-5.2); ALKALINE PHOSPHATASE 67 U/L (46-116); ALT/SGPT 36 U/L (7.0-40); AST/SGOT 28 U/L (<34); BILIRUBIN,TOTAL 0.6 MG/DL (0.3-1.2); BLOOD UREA NITROGEN 17 MG/DL (9-23); CALCIUM LEVEL 9.9 MG/DL (8.3-10.6); CARBON DIOXIDE LEVEL 26 MMOL/L (20-31); CHLORIDE LEVEL 104 MMOL/L (98-107); CHOLESTEROL LEVEL 159 MG/DL (<200); CHOLESTEROL RISK RATIO 4.01 (<5); CREATININE FOR GFR 0.67 MG/DL (0.70-1.30); GLOMERULAR FILTRATION RATE > 60.0 (>42); GLUCOSE, FASTING 199 MG/DL (74-106); HDL CHOLESTEROL 39.6 MG/DL (>40); NON-HDL-C 119.4 MG/DL; POTASSIUM SERUM 5.3 MMOL/L (3.5-5.1); SODIUM LEVEL 139 MMOL/L (136-145); THYROID STIMULATING HORMONE 2.735 uIU/ML (0.55-4.78); TOTAL PROTEIN 7.3 G/DL (5.7-8.2); TRIGLYCERIDES LEVEL 402 MG/DL (<150)
[2023-03-25 13:18] LABS: HEMOGLOBIN A1c 6.9 % (4.0-6.0)
== END ==
LOC: M SFHCCLAY 07:25
PROVIDERS: ATTEND Family Medicine
DX: R21 Rash and other nonspecific skin eruption (principal); E11.21 Type 2 diabetes mellitus with diabetic nephropathy; I10 Essential (primary) hypertension; E78.2 Mixed hyperlipidemia

== ENCOUNTER 2023-05-01 09:15 | Day surgery (SDC) | payer MEDICARE ==
[~2023-05-01] VITALS: Ht 170.2 cm; Wt 109.3 kg
[~2023-05-01 09:15] MED LIST changes: -ALLO100T; +ALLO100T PO; -AMLO10CA30; +AMLO10CA30 PO; -ELIQ5TAB; +ELIQ5TAB PO; +EPIN0.3I11 SC; -EPIP0.3I2 IJ; +EPIP0.3I2 SC; +EZET10TA21 PO; +GLIM4TAB5 PO; +JANU50TA25 PO; +LIDOCAINE W/EPINEPHRINE 1% 20ML VIAL XX ONE; -METO1TAB32; +METO1TAB32 PO; +MV-M1CAP8 PO; +OMEG1CAP85 PO; +SIMV20TA22 PO; +SODIUM BICARBONATE 8.4% INJ 50MEQ 50ML VIAL XX ONE; -STEG15TA; +STEG15TA PO; +[UNRECOGNIZED DRUG - OTHER] PO
[2023-05-01 12:45] VITALS: BP 152/74; TEMP 97.7; O2SAT 96
== END 2023-05-01 12:59 | disposition home or self-care (01) ==
LOC: M SDC 09:15
PROVIDERS: ATTEND Orthopaedic Surgery Hand Surgery
DX: M65.341 Trigger finger, right ring finger (principal); I48.91 Unspecified atrial fibrillation; I10 Essential (primary) hypertension; E11.9 Type 2 diabetes mellitus without complications; E78.5 Hyperlipidemia, unspecified; Z95.0 Presence of cardiac pacemaker; Z87.891 Personal history of nicotine dependence; K57.92 Diverticulitis of intestine, part unspecified, without perforation or abscess without bleeding; Z85.118 Personal history of other malignant neoplasm of bronchus and lung; J45.909 Unspecified asthma, uncomplicated; Z79.84 Long term (current) use of oral hypoglycemic drugs; Z79.01 Long term (current) use of anticoagulants; Z79.899 Other long term (current) drug therapy; G47.33 Obstructive sleep apnea (adult) (pediatric)

== ENCOUNTER → 2024-04-01 | Outpatient (REF) | payer MEDICARE ==
[~2024-04-01] MED LIST changes: -GLIM1TAB4; +GLIM1TAB84; -LIDOCAINE W/EPINEPHRINE 1% 20ML VIAL XX ONE; +OMEG-28 PO; -OMEG1CAP85 PO; -SODIUM BICARBONATE 8.4% INJ 50MEQ 50ML VIAL XX ONE
[2024-04-01 11:44] LABS: URIC ACID 4.1 MG/DL (3.7-9.2)
[2024-04-01 11:45] LABS: PSA SCREENING 0.34 NG/ML (< 4.00)
[2024-04-01 11:47] LABS: ALBUMIN 3.8 G/DL (3.2-5.2); ALKALINE PHOSPHATASE 66 U/L (40-129); ALT/SGPT 35 U/L (7.0-40); AST/SGOT 27 U/L (<34); BILIRUBIN,TOTAL 0.7 MG/DL (0.3-1.2); BLOOD UREA NITROGEN 11 MG/DL (9-23); CALCIUM LEVEL 9.1 MG/DL (8.3-10.6); CARBON DIOXIDE LEVEL 25 MMOL/L (20-31); CHLORIDE LEVEL 107 MMOL/L (98-107); CHOLESTEROL LEVEL 132 MG/DL (<200); CREATININE FOR GFR 0.64 MG/DL (0.70-1.30); GLOMERULAR FILTRATION RATE > 60.0 (>42); GLUCOSE, FASTING 187 MG/DL (74-106); LDL CHOLESTEROL 34.6 MG/DL (<100); POTASSIUM SERUM 4.4 MMOL/L (3.5-5.1); SODIUM LEVEL 140 MMOL/L (136-145); TOTAL PROTEIN 7.2 G/DL (5.7-8.2); TRIGLYCERIDES LEVEL 287 MG/DL (<150)
[2024-04-01 11:48] LABS: FREE T4 1.19 NG/DL (0.89-1.76)
[2024-04-01 11:49] LABS: THYROID STIMULATING HORMONE 1.631 uIU/ML (0.55-4.78)
[2024-04-01 12:01] LABS: HEMOGLOBIN A1c 7.8 % (4.0-6.0)
[2024-04-01 12:15] LABS: MAU/CREAT RATIO 676.4 MCG/MG (0.0-30.0)
== END ==
LOC: M SFHCCLAY 07:52
PROVIDERS: ATTEND Family Medicine
DX: I10 Essential (primary) hypertension (principal); E11.21 Type 2 diabetes mellitus with diabetic nephropathy; E78.2 Mixed hyperlipidemia; R79.89 Other specified abnormal findings of blood chemistry; N20.0 Calculus of kidney; Z12.5 Encounter for screening for malignant neoplasm of prostate
CPT/HCPCS: 80053; 80061; 82043; 83036; 84439; 84443; 84550; G0103

== ENCOUNTER → 2024-07-22 | Outpatient (REF) | payer MEDICARE ==
[2024-07-24 14:37] LABS: MUMPS VIRUS IgG ANTIBODY > 300.00 AU/mL (>10.99); RUBEOLA IgG ANTIBODY > 300.00 AU/mL (>16.49)
== END ==
LOC: M SFHCCLAY 11:15
PROVIDERS: ATTEND Physician Assistant
DX: Z01.84 Encounter for antibody response examination (principal)

== ENCOUNTER → 2024-08-17 | Outpatient (REF) | payer MEDICARE ==
[2024-08-17 14:02] LABS: HEMOGLOBIN A1c 6.6 % (4.0-6.0)
== END ==
LOC: M SFHCCLAY 09:36
PROVIDERS: ATTEND Physician Assistant
DX: E11.9 Type 2 diabetes mellitus without complications (principal)

== ENCOUNTER → 2024-08-19 | Outpatient (CLI) | payer MEDICARE | LOC: M CLY 14:00 | PROVIDERS: ATTEND Physician Assistant | DX: M19.012 Primary osteoarthritis, left shoulder (principal) ==

== ENCOUNTER 2025-02-08 10:51 | Emergency (ER) | payer MEDICARE ==
[~2025-02-08] VITALS: Ht 167.6 cm; Wt 102.5 kg
[~2025-02-08 10:51] MED LIST changes: -EZET10TA21 PO; +EZET10TA57 PO
[2025-02-08] MEDS: ONDANSETRON 4MG 2ML VIAL IV ONE (18:36)
[2025-02-08] MEDS: MORPHINE 2 MG/ML 1 ML VIAL IV ONE (18:37)
[2025-02-08 18:49] LABS: BASO # 0.0 10^3/uL (0.0-0.2); BASO % 0.4 % (0.0-1.0); EOS # 0.1 10^3/uL (0.0-0.5); EOS % 1.3 % (0.0-3.0); LYMPH # 2.3 10^3/uL (1.5-5.0); LYMPH % 27.5 % (24.0-44.0); MONO # 0.9 10^3/uL (0.0-0.8); MONO % 11.3 % (2.0-8.0); NEUTROPHILS # 4.9 10^3/uL (1.5-8.5); NEUTROPHILS % 59.0 % (36.0-66.0); PLATELET COUNT, AUTOMATED 233 10^3/uL (150-450)
[2025-02-08 19:02] LABS: INR 1.02
[2025-02-08 19:05] LABS: ALT/SGPT 30 U/L (7.0-40); AST/SGOT 31 U/L (<34); CALCIUM LEVEL 9.2 MG/DL (8.3-10.6); CARBON DIOXIDE LEVEL 27 MMOL/L (20-31); CHLORIDE LEVEL 104 MMOL/L (98-107); CREATININE FOR GFR 0.78 MG/DL (0.70-1.30); GLOMERULAR FILTRATION RATE > 90.0 (>42); POTASSIUM SERUM 4.7 MMOL/L (3.5-5.1); SODIUM LEVEL 140 MMOL/L (136-145)
[2025-02-08 19:52] VITALS: BP 136/65; TEMP 97.9; O2SAT 93
== END 2025-02-08 20:01 | disposition home or self-care (01) ==
LOC: M ED 10:51
DX: S20.20XA Contusion of thorax, unspecified, initial encounter (principal); S80.01XA Contusion of right knee, initial encounter; W10.2XXA Fall (on)(from) incline, initial encounter; Y92.009 Unspecified place in unspecified non-institutional (private) residence as the place of occurrence of the external cause; Y93.9 Activity, unspecified; Y99.9 Unspecified external cause status; I48.91 Unspecified atrial fibrillation; I10 Essential (primary) hypertension; Z79.01 Long term (current) use of anticoagulants; Z79.899 Other long term (current) drug therapy
CPT/HCPCS: 71046; 71100; 73564; 80053; 85025; 85610; 85730; 96374; 96375; 99284; J2405

== ENCOUNTER → 2025-02-19 | Outpatient (REF) | payer MEDICARE ==
[2025-02-19 13:33] LABS: CHOLESTEROL LEVEL 115 MG/DL (<200); CHOLESTEROL RISK RATIO 3.21 (<5); LDL CHOLESTEROL 43.0 MG/DL (<100); NON-HDL-C 79.2 MG/DL; PSA SCREENING 0.35 NG/ML (< 4.00); TRIGLYCERIDES LEVEL 181 MG/DL (<150)
[2025-02-19 13:48] LABS: ESTIMATED AVERAGE GLUCOSE 163.0 MG/DL (60-110)
[2025-02-19 13:55] LABS: CREATININE, URINE 47.2 MG/DL; MALB URINE SIEMENS 203.0 MG/L; MAU/CREAT RATIO 430.0 MCG/MG (0.0-30.0)
[2025-02-19 15:51] LABS: ALT/SGPT 28 U/L (7.0-40); AST/SGOT 27 U/L (<34); CALCIUM LEVEL 8.8 MG/DL (8.3-10.6); CARBON DIOXIDE LEVEL 25 MMOL/L (20-31); CHLORIDE LEVEL 103 MMOL/L (98-107); CREATININE FOR GFR 0.71 MG/DL (0.70-1.30); GLOMERULAR FILTRATION RATE > 90.0 (>42); POTASSIUM SERUM 4.4 MMOL/L (3.5-5.1); SODIUM LEVEL 140 MMOL/L (136-145)
== END ==
LOC: M SFHCCLAY 07:24
PROVIDERS: ATTEND Physician Assistant
DX: Z00.00 Encounter for general adult medical examination without abnormal findings (principal); I10 Essential (primary) hypertension; G47.33 Obstructive sleep apnea (adult) (pediatric); E11.21 Type 2 diabetes mellitus with diabetic nephropathy; R21 Rash and other nonspecific skin eruption; E78.2 Mixed hyperlipidemia; I48.0 Paroxysmal atrial fibrillation; N20.0 Calculus of kidney; T78.2XXA Anaphylactic shock, unspecified, initial encounter; L30.9 Dermatitis, unspecified; Z68.36 Body mass index [BMI] 36.0-36.9, adult; M25.512 Pain in left shoulder
CPT/HCPCS: 80053; 80061; 82043; 83036; G0103